=== PATIENT | female | born 1945 | race Caucasian/White ===

== ENCOUNTER 2025-04-02 10:10 | Outpatient (CLI) | payer MEDICARE, SELFPAY ==
--- NOTE | ~2025-04-02 | CT_ITS ---
CT OF left knee EXAMINATION: CT_LELTCWO_CT DATE: 04/02/2025 11:26 INDICATION: Preoperative planning, Conformis protocol TECHNIQUE: Computed tomography (CT) of the left knee was performed without intravenous contrast. Auto mated exposure control and iterative reconstruction technique were employed. The dose-length product was 1810.52 mGy-cm. COMPARISON: X-ray left knee 03/20/2025, images only FINDINGS: Atherosclerotic calcifications. Degenerative changes in the bilateral hips and pubic symphysis. Decre ased mineralization. Tricompartmental degenerative change in the left knee, severe in the medial comp artment. Chondrocalcinosis. ACL not well visualized, may be torn. No acute fracture or dislocation. N o lytic or blastic lesion. IMPRESSION: Osteopenia. 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 Reviewed, dictated and finalized at location K.
--- OUTSIDE RECORDS SUMMARY | 2025-04-02 10:20 | XMS_ITS | Encounter Summary ---
Author Organization [facility] Address [address] [facility] [place] [address] Phone Care Team Providers Care Manager Licensing Name Role Phone Sonya López MD Primary Care Provider Chance Miller MD Unavailable Gabo Long MD Primary Care Provider [phone] Ashwini Herrera DO Primary Care Provider Encounter Details Date Type Department Care Team (Late st Contact Info) Description 04/26/2023 [facility] [address] [place] [address] Chance Miller MD #[address] [id number] Preop testing (Primary Dx); Oropharyngeal dysphagia Social History Tobacco Use Types Packs/Day Years Used Date Smoking Tobacco: Never Smokeless Tobacco: Never Alcohol Use Standard Drinks/Week Comments Yes 0 (1 standard drink = 0.6 oz pur e alcohol) OCCASIONAL ON WEEKENDS PHQ-2 Answer Date Recorded Total Score - Questions 1-9 0 02/24 Education Answer Date Recorded What is the highest level of school you have completed or the highest degree you have received? Associate degree: occupational, technical, or vocational program 03/12/2023 Sexually Active Control Partners Comments Not Currently Male Comments No Sex and Gender Information Value Date Recorded Sex Assigned at Female 09/26/2023 10:23 AM ORDNANCE TECHNICIAN Legal Sex Female 11:44 PM CDT Gender Identity Female 09/26/2023 10:23 AM ORDNANCE TECHNICIAN Sexual Orientation Straight 09/26/2023 10 :23 AM ORDNANCE TECHNICIAN COVID-19 Exposure Response Date Recorded In the last 10 days, have yo u been in contact with someone who was confirmed or suspected to have Coronavirus/COVID-19? No / Unsure 04/23/2023 11:00 AM CDT documented as of this encounter Plan of Treatment Upcoming Encounters Date Type Department Care Team (Late st Contact Info) Description 12/07/2025 10:00 AM CDT Office Visit [facility] - Family Medicine - [place] [address] [place] [address] Ashwini Herrera, DO 2 [facility], [address] [id number] documented as of this encounter Results * SARS-COV-2 BY MOLECULAR (05/01/2023 10:19 AM CDT) SARSCOV2 NOT DETECTED (Referenc e Range for this test is Not Detected) [facility] ID NOW 05/01/2023 10:53 AM CDT [facility] Comment:This test was perfor med by a MOLECULAR, NON-PCR method Other NASOPHARYNGEAL STRUCTURE / Unknown Non-Phlebotomy Collection / Unknown 05/01/2023 10:19 AM CDT 05/01/2023 10:36 AM CDT Narrative [facility] - 05/01/2023 10:53 AM CDT This test has been authorized by the FDA under an Emergency Use Authorization (EUA) only. Negative results should be treated as presumptive and, if inconsistent with clinical signs and symptoms or necessary for patient management, the patient should be tested with an alternative molecular assay. Negative results do not preclude SARS-CoV-2 infection or any other respiratory pathogen. Additional information for Clinicians can be found at: https://www.fda.gov/media/887206/download Additional information for Patients can be found at: https://www.fda.gov/media/552083/download Chance Millre MD MICROBIOLOGY - GENERAL ORDERABLE S Final Result [facility] [address] [place] [address] documented in this encounter Visit Diagnoses Diagnosis Preop testing- Primary Preoperative examination, unspecified Oropharyngeal dysphagia Dysphagia, oropharyngeal phase documented in this encounter Additional Health Concerns Infection Onset Date Last Indicated Resolved Time COVID - 19 Confirmed 04/23/2023 04/23/2023 023 12:16 AM CDT Assessment Noted Time PHQ-9 Depression Total Score: 0 03/12/20 23 12:00 PM CDT documented as of this encounter Care Teams Manager Licensing Relationship Specialty Start Date End Date Sonya López MD PCP - General Family Medicine 02/26/18 07/30/23 Gabo Long MD #2 [facility] [address] [place] [address] PCP - General Family Medicine 12/10/23 01/23/24 Ashwini Herrera DO 2 [facility] [address] [facility] [address] [place] [address] PCP - General Family Medicine 01/24/24 Chance Miller MD [facility]2 [facility] [address] [place] [address] Consulting Physician Colon and Rectal Surgery 04/13/23 documented as of this encounter
--- OUTSIDE RECORDS SUMMARY | 2025-04-02 10:20 | XMS_ITS | Encounter Summary ---
Author Organization [facility] Address [address] [place] [address] Phone Care Team Providers Care Dray Driver Name Role Phone Sonya López MD Primary Care Provider [phone] Chance Miller MD Unavailable Gabo Long MD Primary Care Provider [phone] Ashwini Herrera DO Primary Care Provider [phone] Reason for Visit * Reason Comments Medication Refill Encounter Details Date Type Department Care Team (Late st Contact Info) Description 07/07/2020 Refill [facility] - Family Medicine [facility] [address] [place] [address] Sonya López [place] [address] [place] [id number] Medication Refill Social History Tobacco Use Types Packs/Day Years Used Date Smoking Tobacco: Never Smokeless Tobacco: Never Alcohol Use Standard Drinks/Week Comments Yes 0 (1 standard drink = 0.6 oz pur e alcohol) OCCASIONAL ON WEEKENDS PHQ-2 Answer Date Recorded Total Score - Questions 1-9 0 01/25 Sexually Active Control Partners Comments Not Currently Comments No Sex and Gender Information Value Date Recorded Sex Assigned at Female 09/26/2023 10:23 AM MOLDED GOODS INSPECTOR TRIMMER Legal Sex Female 11:44 PM CDT Gender Identity Female 09/26/2023 10:23 AM MOLDED GOODS INSPECTOR TRIMMER Sexual Orientation Straight 09/26/2023 10 :23 AM MOLDED GOODS INSPECTOR TRIMMER documented as of this encounter Plan of Treatment Upcoming Encounters Date Type Department Care Team (Late st Contact Info) Description 12/07/2025 10:00 AM CDT [facility] Visit [facility] Family [facility] [address] [place] [address] Ashwini Herrera DO 2 [facility] [address] [address] documented as of this encounter Visit Diagnoses Not on filedocumented in this encounter Additional Health Concerns Infection Onset Date Last Indicated Resolved Time COVID - 19 03/30/2023 03/30/2023 04/09/2023 12:1 6 AM CDT COVID - 19 Confirmed 03/30/2023 03/30/2023 023 12:16 AM CDT COVID - 19 Confirmed 04/23/2023 04/23/2023 023 12:16 AM CDT Assessment Noted Time PHQ-9 Depression Total Score: 0 02/10/20 20 7:31 AM CDT documented as of this encounter Care Teams Dray Driver Relationship Specialty Start Date End Date Sonya López MD PCP - General Family Medicine 02/26/18 07/30/23 Gabo Long MD #[address] [address] PCP - General Family Medicine 12/10/23 01/23/24 Ashwini Herrera DO 2 [facility] [address] [address] PCP - General Family Medicine 01/24/24 Chance Miller MD #[address] [address] Consulting Physician Colon and Rectal Surgery 04/13/23 documented as of this encounter
--- OUTSIDE RECORDS SUMMARY | 2025-04-02 10:22 | XMS_ITS | Encounter Summary ---
Author Organization [facility] Address [address] [facility] [place] [address] Phone Care Team Providers Care Applications Sales Consultant Name Role Phone Chance Miller MD Unavailable Gabo Long MD Primary Care Provider [phone] Ashwini Herrera DO Primary Care Provider [phone] Reason for Visit * Reason Comments Medication Refill Encounter Details Date Type Department Care Team (Late st Contact Info) Description 08/24/2023 Refill [facility] [address] [place] [address] Sonya López [place] [address] [place] [address] Medication Refill Social History Tobacco Use Types [...] Sex Assigned at Female 09/26/2023 10:23 AM FINANCE ASSISTANT Legal Sex Female 11:44 PM CDT Gender Identity Female 09/26/2023 10:23 AM FINANCE ASSISTANT Sexual Orientation Straight 09/26/2023 10 :23 AM FINANCE ASSISTANT documented as of this encounter Miscellaneous Notes * Telephone Encounter - Janki Luna RN - 08/24/2023 11:05 AM CST Name from pharmacy: glipiZIDE 5 MG Oral Tablet Will file in chart as: glipiZIDE (GLUCOTROL) 5 MG Tablet The original prescription was discontinued on 07/16/2023 by Sonya López MD for the following reason: Therapy completed. NCE ASSISTANT documented in this encounter Plan of Treatment Upcoming Encounters Date Type Department Care Team (Late st Contact Info) Description 12/07/2025 10:00 AM CDT Office Visit [facility] Family [facility] [address]2 [place] [address] Ashwini Herrera DO [address] [address] documented as of this encounter Visit Diagnoses Diagnosis Controlled type 2 diabetes mellitus without complication, without long-term current use of insulin documented in this encounter Additional Health Concerns Assessment Noted Time PHQ-9 Depression Total Score: 0 03/12/20 23 12:00 PM CDT documented as of this encounter Care Teams Applications Sales Consultant Relationship Specialty Start Date End Date Gabo Long MD #[address] [address] PCP - General Family Medicine 12/10/23 01/23/24 Ashwini Herrera DO [address] [address] PCP - General Family Medicine 01/24/24 Chance Miller MD #[address] [facility] [address] [address] Consulting Physician Colon and Rectal Surgery 04/13/23 documented as of this encounter
--- OUTSIDE RECORDS SUMMARY | 2025-04-02 10:22 | XMS_ITS | Encounter Summary ---
Author Organization [facility] Address [address] [facility] [place] [address] Phone Care Team Providers Care Slot Machine Key Person Name Role Phone Chance Miller MD Unavailable Gabo Long MD Primary Care Provider [phone] Ashwini Herrera DO Primary Care Provider [phone] Reason for Visit * Reason Comments Medication Refill Encounter Details Date Type Department Care Team (Late st Contact Info) Description 11/25/2023 Refill [facility] [address]2 [place] [address] Sonya López [place] [address] [place] [address] Medication Refill Social History Tobacco Use Types [...] Sex Assigned at Female 09/26/2023 10:23 AM SILVERWARE BUFFING MACHINE OPERATOR Legal Sex Female 11:44 PM CDT Gender Identity Female 09/26/2023 10:23 AM SILVERWARE BUFFING MACHINE OPERATOR Sexual Orientation Straight 09/26/2023 10 :23 AM SILVERWARE BUFFING MACHINE OPERATOR documented as of this encounter Miscellaneous Notes * Telephone Encounter - Janki Luna RN - 11/27/2023 8:57 AM CDT Sonya patient - has upcoming transfer of care with Dr Long in December. * Telephone Encounter - Janki Luna RN - 11/27/2023 8:57 AM CDT Medication(s) [facility] Standing Order for Pediatricand Adult Patients. Requested Prescriptions Pending Prescriptions Disp Refills atorvastatin (LIPITOR) 20 MG Tablet [Pharmacy Med Name: Atorvastatin Calcium 20 MG Oral Tablet] 90 Tablet 0 Sig: TAKE 1 TABLET BY MOUTH DAILY Hmg CoA Reductase Inhibitors Protocol Passed - 11/25/2023 3:37 AM Passed - Visit with relevant provider in past 12 months or upcoming 90 days Recent Visits Date Type Provider Dept 07/16/23 Office Visit Sonya López MD [facility] 04/12/23 Office Visit Alison Keane APRN, CNP [facility] 03/12/23 Office Visit Sonya López MD [facility] 12/11/22 Office Visit Sonya López MD [facility] Showing recent visits within past 365 days and meeting all other requirements Future Appointments Date Type Provider Dept 01/24/24 Appointment Gabo Long MD [facility] Showing future appointments within next 90 days and meeting all other requirements Passed - Lipid panel in past 12 months LDL Date Value Ref Range Status 12/11/2022 54 5 - 130 mg/dL Final HDL CHOLESTEROL Date Value Ref Range Status 12/11/2022 52.3 >40 mg/dL Final CHOLESTEROL Date Value Ref Range Status 12/11/2022 129 <=200 mg/dL Final TRIGLYCERIDES Date Value Ref Range Status 12/11/2022 113 <150 mg/dL Final VLDL Date Value Ref Range Status 12/11/2022 23 5 - 55 mg/dL Final CHOL/HDL RATIO Date Value Ref Range Status 12/11/2022 2.5 0.0 - 4.4 Final NON-HDL CHOLESTEROL Date Value Ref Range Status 12/11/2022 76.7 <130 mg/dL Final Passed - CMP in past 12 months SODIUM Date Value Ref Range Status 07/09/2023 142 136 - 145 mmol/L Final POTASSIUM Date Value Ref Range Status 07/09/2023 4.4 3.5 - 5.1 mmol/L Final CHLORIDE Date Value Ref Range Status 07/09/2023 107 98 - 107 mmol/L Final CO2, VENOUS Date Value Ref Range Status 07/09/2023 25 22 - 30 mmol/L Final ANION GAP Date Value Ref Range Status 07/09/2023 14.4 <18.0 mmol/L Final GLUCOSE Date Value Ref Range Status 07/09/2023 149 (H) 70 - 99 mg/dL Final BUN Date Value Ref Range Status 07/09/2023 18 10 - 20 mg/dL Final CREATININE, BLOOD Date Value Ref Range Status 07/09/2023 1.04 (H) 0.60 - 1.00 mg/dL Final BUN/CREATININE RATIO Date Value Ref Range Status 07/09/2023 17 12 - 20 ratio Final TOTAL PROTEIN Date Value Ref Range Status 07/09/2023 7.0 6.3 - 8.2 g/dL Final ALBUMIN Date Value Ref Range Status 07/09/2023 3.9 3.5 - 5.0 g/dL Final A/G RATIO Date Value Ref Range Status 07/09/2023 1.3 1.0 - 2.2 Final A/G RATIO, SERUM Date Value Ref Range Status 05/25/2023 1.0 Final CALCIUM Date Value Ref Range Status 07/09/2023 9.5 8.7 - 10.5 mg/dL Final T BILI Date Value Ref Range Status 07/09/2023 0.7 0.2 - 1.2 mg/dL Final SGOT (AST) Date Value Ref Range Status 07/09/2023 35 (H) 5 - 34 U/L Final SGPT (ALT) Date Value Ref Range Status 07/09/2023 32 0 - 55 U/L Final ALKALINE PHOSPHATASE Date Value Ref Range Status 07/09/2023 92 40 - 150 U/L Final GFR, EST. NONAFRICAN Date Value Ref Range Status 07/09/2023 52 (L) >=60 Final GFR, EST. Date Value Ref Range Status 07/09/2023 >60 >=60 Final GFR, ESTIMATED Date Value Ref Range Status 07/09/2023 56 (L) >=60 Final Comment: Creatinine Clearance is the preferred criteria for selecting drug dose adjustments in renally impaired patients. The GFR is provided as additional pertinent clinical information. GFR is reported in mL/min/1.73 sq m. Calculation based on the Chronic Kidney Disease Epidemiology Collaboration (CKD- EPI) equation refitwithout adjustment for race. IS THE PATIENT REQUIRED TO BE FASTING? Date Value Ref Range Status 07/09/2023 No Final documented in this encounter Plan of Treatment Upcoming Encounters Date Type Department Care Team (Late st Contact Info) Description 12/07/2025 10:00 AM CDT Office Visit [facility] Family [facility] #2 [place] [address] Ashwini Herrera DO 2 [facility] [address] [place] [address] documented as of this encounter Visit Diagnoses Diagnosis Dyslipidemia Other and unspecified hyperlipidemia documented in this encounter Additional Health Concerns Assessment Noted Time PHQ-9 Depression Total Score: 0 03/12/20 23 12:00 PM CDT documented as of this encounter Care Teams Slot Machine Key Person Relationship Specialty Start Date End Date Gabo Long MD #[address] [address] PCP - General Family Medicine 12/10/23 01/23/24 Ashwini Herrera DO 2 [facility] [address] [place] [address] PCP - General Family Medicine 01/24/24 Chance Miller MD #[address] [address] Consulting Physician Colon and Rectal Surgery 04/13/23 documented as of this encounter
--- OUTSIDE RECORDS SUMMARY | 2025-04-02 10:22 | XMS_ITS | Clinical Summary ---
Author Organization [facility] Medical Office Building [address] Address [address] [place] [address] Care Team Providers Care Flight Test Engineer Name Role Phone Ashwini Herrera DO Primary Care Provider Allergies Active Allergy Reactions Criticality Noted Date Comments Tetanus Antitoxin Swelling Medium 07/20/2015 Medications liraglutide (VICTOZA) 0.6 mg/0.1 mL (18 mg/3 mL) injectionIndica tions:type 2 diabetes mellitus Inject under the skin. Active metFORMIN (GLUMETZA) 500 mg 24 hr tablet Take 1 tablet (500 mg total) by mouth daily with breakfast Active aspirin 81 mg tablet Take 1 tablet (81 mg total) by mouth daily Active blood glucose diagnostic strip Test once daily. DX E11.9 9 Active pen needle, diabetic 32 gauge x 1/4 needle Test blood sugar once a day 7 Active omeprazole (PriLOSEC) 40 mg capsule Take 1 capsule (40 mg total) by mouth daily [address] (CYMBALTA) 20 mg capsule Take 1 capsule (20 mg total) by mouth daily 3 Active potassium &magnesium aspartate (MAGNESIUM, POTASSIUM ASPARTATE ORAL) Take by mouth Active losartan (COZAAR) 50 mg tablet Take 1 tablet (50 mg total) by mouth daily 90 tablet 3 5 Active levothyroxine (SYNTHROID) 75 mcg tablet Take 1 tablet (75 mcg total) by mouth early childhood aide classroom before breakfast 90 tablet 3 5 Active atorvastatin (LIPITOR) 20 mg tablet Take 1 tablet (20 mg total) by mouth daily 90 tablet 3 5 Active Xarelto 20 mg tablet TAKE 1 TABLET BY MOUTH ONCE DAILY 90 tablet 3 5 Active Active Problems Problem Noted Date Diagnosed Date Pacemaker 06/27/2024 Sick sinus syndrome 04/30/2024 Overview (05/07/2024): Manifested by slow and fast heart rates in atrial fibrillation. Now status post Biotronik Amvia Edge permanent dual-chamber pacemaker on 30 April 2024 (RL). Assessment & Plan (05/07/2024 3:14 PM CDT): No significant incisional pain, wound drainage or fever. Usual pacemaker precautions given. Patient may drive a car now. She will see Dr. Mcginnis on 23 June 2024 and she will ask him about restarting Toprol XL. She may restart Xarelto 20 mg p.o. tonight. She knows to call me if there is any large hematoma developing on Xarelto. Device remote check today showed no atrial fibrillation with 56% RA pacing 46% RV pacing. All numbers good. Sick sinus syndrome 04/02/2024 Bradycardia 12/17/2023 Paroxysmal atrial fibrillation 05/29/2022 Abnormal stress test 03/03/2022 Overview (03/03/2022): Added automatically from request for surgery [id number] Coronary artery disease invo lving [place] coronary artery of [place] heart without angina pectoris 01/20/2022 Persistent atrial fibrillation 01/20/2022 On continuous oral anticoagulation 01/20/2022 Morbid obesity with BMI of 40.0-44.9, adult 01/25 Assessment & Plan (06/28/2022 10:16 AM CDT): Encourage a weight loss program such as WW (Weight Watchers) incorporating dietary changes and aerobic / weight-bearing exercise at least 4-5 times per week, for at least 30-45 minute sessions. Assessment & Plan (02/11/2019 11:29 AM CDT): Encourage a weight loss program such as Weight Watchers incorporating dietary changes and aerobic / weight-bearing exercise at least 3-4 times per week, as tolerated. Lichen sclerosus et atrophicus 02/20/2013 Overview (11/29/2016): Lichen sclerosus Assessment & Plan (05/16/2023 4:27 PM CDT): Recommend coconut oil, in solid form, in between flares to help protect skin. Can apply topically daily and as needed. Continue steroid ointment for flares - refill sent to pharmacy at this time. Hypercholesterolemia 06/04/2012 Overview (11/29/2016): Hypercholesterolemia Gastroesophageal reflux disease 06/04/2012 Overview (11/30/2016): Gastro - esophageal reflux Essential hypertension 06/04/2012 Overview (12/01/2016): Hypertension Diabetes mellitus 06/04/2012 Overview (12/01/2016): Diabetes mellitus Hypothyroidism 06/04/2012 Overview (12/01/2016): Hypothyroidism Dyslipidemia 06/04/2012 Overview (12/01/2016): Dyslipidemia Atrial flutter Encounters Date Type Department Care Team Description 01/28/2025 11:45 AM CDT Ancillary Procedure [facility] [address] [place] [id number] Sick sinus syndrome (HCC); Paroxysmal atrial fibrillation (HCC); Pacemaker 01/09/2025 10:30 AM CDT Ancillary Procedure [facility] at [address] [id number] Sick sinus syndrome (HCC); Paroxysmal atrial fibrillation (HCC); Pacemaker 01/09/2025 10:30 AM CDT Office Visit [facility] at [address] [phone] Portia Mcginnis MD Paroxysmal atrial fibrillation (HCC) (Primary Dx); Pacemaker; On continuous oral anticoagulation; Essential hypertension from Last 3 Months Surgical History Surgery Date Site/Laterality Comments OTHER SURGICAL HISTORY 1964 : OTHER SURGICAL HISTORY 1969 : OTHER SURGICAL HISTORY 1983 S/P TVH and anterior repair OTHER SURGICAL HISTORY Left arthroscopic, knee OTHER SURGICAL HISTORY Hemorrhoids: IR Medical History Medical History Date Comments Hx Other Medical 1964 ; Outc ome: 8 lb(s) 14 oz Female Hx Other Medical 1969 ; Outc ome: 7 lb(s) 10 oz Male Disorder of thyroid Thyroid dise ase Hyperlipidemia Hyperlipidemia Hypertension Hypertension Diabetes mellitus (HCC) Diabetes mellitus Hx Other Medical 2005 lichen sclerosu s Hx Other Medical Hemorrhoids; Co mments: MTB 06/05/2014 - Family History Medical History Relation Name Comments Coronary artery disease Father Marty nary artery disease; Diabetes Father Diabetes mellit us; Coronary artery disease Mother Marty nary artery disease; Diabetes Mother Diabetes mellit us; Heart disease Mother Osteoporosis Mother Osteoporosis; Thyroid cancer Mother Thyroid disease Mother Relation Name Status Comments Father Mother Social History Tobacco Use Types Packs/Day Years Used Date Smoking Tobacco: Never Smokeless Tobacco: Never Tobacco Cessation:Counseling Given: Not Answered Alcohol Use Standard Drinks/Week Comments Yes 0 (1 standard drink = 0.6 oz pur e alcohol) AUDIT-C Answer Date Recorded Q1: How often do you have a drink containing alc ohol? 2-4 times a month 04/30/2024 Q2: How many drinks containi ng alcohol do you have on a typical day when you are drinking? 1 or 2 04/30/2024 Q3: How often do you have si x or more drinks on one occasion? Never 04/30/2024 PHQ-2 Answer Date Recorded PHQ-2 Total Score (If total score is 3 or more points, staff should administer the PHQ-9) 0 05/16/2023 Personal Safety Answer Date Recorded Have you ever been in or are you currently in a harmful physical or emotional relationship or is someone making you feel afraid or unsafe? Denies 04/30/2024 Comments No Sex and Gender Information Value Date Recorded Sex Assigned at Not on file Legal Sex Female 1:54 AM CANDY SEPARATOR HARD Gender Identity Female 02/11/2021 9:48 AM CDT Sexual Orientation Not on file Obstetrics History Para Term AB IAB SAB Ectopic Multiple Livin g Live Births 2 2 Date Outcome GA Total Labor Labor/2nd/3rd Weight Sex Type Anes PTL Marichuy A1 A5 Name Clin 07/1965 F Vag-Sp ont 05/1970 M Vag-Sp ont Last Filed Vital Signs Vital Sign Reading Time Taken Comments Blood Pressure 94/67 01/09/2025 10:24 AM CDT Pulse 93 01/09/2025 10:24 AM CDT Temperature 36 C (96.8 F) 05/01/2024 7:56 AM CDT Respiratory Rate 18 05/01/2024 7:56 AM CDT Oxygen Saturation 94% 05/01/2024 7:56 AM CDT Inhaled Oxygen Concentration - - Weight 95.7 kg (211 lb) 01/09/2025 10:24 AM CDT Height 157.5 cm (5' 2) 01/09/2025 10:24 AM CDT Body Mass Index 38.59 01/09/2025 10:24 AM CDT Plan of Treatment Health Maintenance Due Date Last Done Comments Albumin Creatinine Ratio, Urine 1945 Hemoglobin A1C 1945 Hepatitis C Screening 1945 Dilated Eye Exam 1946 Foot Exam 1945 DTaP/Tdap/Td Vaccine (1 - Tdap) 1957 Hepatitis B Screening 1964 Well Visit 65+ 2011 Osteoporosis Screening-Bone Density Scan 03/18/2021 03/18/2019, 03/18/2019, 03/18/2019 Depression Screening 05/16/2024 05/16/2023, 02/18/20 21 Influenza Vaccine (#1) 2025 , 07/25/2022, 05/17/2020, Additional history exists eGFR 04/29/2025 04/29/2024, 01/26, 04/25/2022, Additional history exists Fall Risk Assessment 05/01/2025 05/01/2024 Lipid Panel 01/22/2026 01/22/2025, 12/27, 12/06/2021, Additional history exists Zoster Vaccine Completed 05/26/2019, 12/27, 05/31/2015 Pneumococcal vaccine 65+ Completed 020, 02/25/2018, 11/25/2005 Breast Cancer Screening-Mammogram Discontinued 01/15/2025, 01/15/2025, 12/10/2023, Additional history exists Medical Devices Implanted Type Area Ways Operator Device Identifier Shelf Expiration Date Model / Serial / Lot Biotronik Inc Endocardial Pacing Lead Promri Solia Jt [id number] - [id number] - [id number] Implanted:Qty: 1 on 04/30/2024 by Rashi Shanks MD at [facility] Lead Biotronik Inc 11/24/2025 [id number] / [id number] / Biotronik Inc Endocardial Pacing Lead Promri Solia T [id number] - [id number] - [id number] Implanted:Qty: 1 on 04/30/2024 by Rashi Shanks MD at [facility] Lead Biotronik Inc 11/24/2024 [id number] / [id number] / Medtronic Inc Tyrx Absorbable Antibacterial Envelope-Large 3.3x2.9in [id number] - [id number] Implanted:Qty: 1 on 04/30/2024 by Rashi Shanks MD at [facility] Mesh Medtronic Inc 01/24/2025 CMRM [id number] / / [id number] Biotronik Inc Pacemaker Implantable Amvia Edge Dual Chamb Rate-Responsive [id number] - [id number] - [id number] Implanted:Qty: 1 on 04/30/2024 by Rashi Shanks MD at [facility] Pacemaker Biotronik Inc 09/26/2025 [id number] / [id number] / Procedures Procedure Name Priority Date/Time Associated Diagnosis Comments DEVICE CHECK - REMOTE Routine 01/27/2025 12:14 PM CDT Sick sinus syndrome (HCC) Paroxysmal atrial fibrillation (HCC) Pacemaker DEVICE CHECK - IN OFFICE Routine 01/09/2025 10:14 AM CDT Sick sinus syndrome (HCC) Paroxysmal atrial fibrillation (HCC) Pacemaker EGFR Routine 04/29/2024 9:32 AM CDT Sick sinus syndrome (HCC) SCREENING MAMMOGRAM BILATERAL W CHRISTIANO Schedule Routine, Read Routine (OP Routine) 12/10/2023 4:23 PM CDT DEXA AXIAL SKELETON BONE DENSITY 1 OR MORE SITES Schedule Routine, Read Routine (OP Routine) 03/18/2019 Asymptomatic menopausal state Screening for osteoporosis from Last 3 Months or Most Recently Relevant to Health Maintenance Results * DEVICE CHECK - REMOTE (01/27/2025 12:14 PM CDT) Anatomical Region Laterality Modality Other Narrative 01/29/2025 1:27 PM CDT Images from the original result were not included. 01/28/2025 Biotronik quarterly remote device check The complete report in its entirety is attached to this Result Text in Bioinformaticist Periodic IEGM Detection Jan 28, 2025, 1:05:34 AM Dual Chamber PPM implanted April 2024 Battery: OK/95% Ap: 58% RVp: 3% AT/AF [place]: 0.0% PVC [place]: 0% Last in-office check: December 2024 Next in-office appointment: June 2025 No episodes recorded this monitoring period Reviewed By Tiffany Coulter RN BSN at 12:07 PM Review and Recommendations below (please forward an in-basket message to your MA if check requires attention) us Portia Mcginnis MD [facility] PROCED URES Final Result * DEVICE CHECK - IN OFFICE (01/09/2025 10:14 AM CDT) Anatomical Region Laterality Modality Other Narrative 01/09/2025 2:06 PM CDT Images from the original result were not included. 01/09/2025 Biotronik in-office device check The complete report is attached to this Result Text in Bioinformaticist us Portia Mcginnis MD CV CARDIAC SERVICES PROCED URES Final Result * eGFR (04/29/2024 9:32 AM CDT) eGFR 75 >=60 mL/min/1. 73 m2 Comment: Interpretive Data Reference Interval Normal >/= 90 mL/min/1.73m2 Mildly decreased* 60 - 89 mL/min/1.73m2 Mildly to moderately decreased 45 - 59 mL/min/1.73m2 Moderately to severely decreased 30 - 44 mL/min/1.73m2 Severely decreased 15 - 29 mL/min/1.73m2 Kidney Failure < 15 mL/min/1.73m2 *Relative to young adult level Estimated glomerular filtration rate is determined by the 2020 CKD-EPI equation recommended by the National Kidney Foundation (A Unifying Approach to GFR Estimation: Recommendations of the NKF-ASK Task Force on Reassessing the Inclusion of Race in Diagnosing Kidney Disease, JASN 2020). The CKD-EPI equation should not be used for patients with unstable renal function and has not been validated in children and those over 70. Current interpretive data was last reviewed 2021. Blood 04/29/2024 9:32 AM CDT 04/29/2024 9:45 AM CDT us Rashi Shanks MD LAB BLOOD ORDERABLES Final Re sult [facility] Department [place] [address] * Dexa Axial Skeleton Bone Density 1 or 2 Site (03/18/2019) Anatomical Region Laterality Modality Body N/A Radiographic Debra ging us Stacy Zapata COMPENSATION DIRECTOR IMG DXA PROCEDURES Final Result from Last 3 Months or Most Recently Relevant to Health Maintenance Insurance [facility] MEDICARE ADVANTAGE UHC MEDICARE ADVANTAGE Advance Directives For more information, please contact: [phone] * Full Code (Latest Code Status on File) Date Activated Date Inactivated Comments 03/07/2022 9:34 AM 03/07/2022 11:14 PM Care Teams Flight Test Engineer Relationship Specialty Start Date End Date Ashwini Herrera DO PCP - General Family Medicine 04/17/24
--- OUTSIDE RECORDS SUMMARY | 2025-04-02 10:22 | XMS_ITS | Encounter Summary ---
Author Organization [facility] Address [address] [facility] [place] [address] Phone Care Team Providers Care Etl Bi Developer Name Role Phone Chance Miller MD Unavailable Ashwini Herrera DO Primary Care Provider [phone] Reason for Visit * Reason Comments Medication Refill Encounter Details Date Type Department Care Team (Late st Contact Info) Description 06/19/2024 [facility]ill [facility] [address] [place] [address] Alison Keane APRN, WARDROBE COORDINATOR [address] [address] Medication Refill Social History Tobacco Use Types [...] Sex Assigned at Female 09/26/2023 10:23 AM ENVIRONMENTAL PROJECTS ADVISOR Legal Sex Female 11:44 PM CDT Gender Identity Female 09/26/2023 10:23 AM ENVIRONMENTAL PROJECTS ADVISOR Sexual Orientation Straight 09/26/2023 10 :23 AM ENVIRONMENTAL PROJECTS ADVISOR documented as of this encounter Miscellaneous Notes * Telephone Encounter - Janki Luna RN - 06/20/2024 3:31 PM CDT Images from the original note were not included. Atorvastatin Calcium Dispensed Days Supply Quantity Provider Pharmacy ATORVASTATIN CALCIUM 20 MG TABS 05/17/2024 90 90 Tablet Alison Keane APRN, SALOM[facility]N [facility] Repeatit ATORVASTATIN CALCIUM 20 MG TABS 02/22/2024 90 90 Tablet Alison Keane APRN, SALOM[place]N [facility] - ... documented in this encounter Plan of Treatment Upcoming Encounters Date Type Department Care Team (Late st Contact Info) Description 12/07/2025 10:00 AM CDT Office Visit [facility] - Family Medicine - [place] [address] [place] [address] Ashwini Herrera DO 2 [facility] [address] [place] [address] documented as of this encounter Visit Diagnoses Diagnosis Dyslipidemia Other and unspecified hyperlipidemia documented in this encounter Additional Health Concerns Assessment Noted Time PHQ-9 Depression Total Score: 0 03/12/20 23 12:00 PM CDT documented as of this encounter Care Teams Etl Bi Developer Relationship Specialty Start Date End Date Ashwini Herrera DO 2 [facility] [address] [facility] [address] [place] [address] PCP - General Family Medicine 01/24/24 Chance Miller MD #2 [facility] [address] [place] [address] Consulting Physician Colon and Rectal Surgery 04/13/23 documented as of this encounter
--- OUTSIDE RECORDS SUMMARY | 2025-04-02 10:22 | XMS_ITS | Encounter Summary ---
Author Organization [facility] Address [address] [facility] [place] [address] Phone Care Team Providers Care Cyber Defense Incident Responder Name Role Phone Sonya López MD Primary Care Provider Chance Miller MD Unavailable Gabo Long MD Primary Care Provider [phone] Ashwini Herrera DO Primary Care Provider [phone] Reason for Visit * Reason Comments Medication Refill Encounter Details Date Type Department Care Team (Late st Contact Info) Description 02/12/2023 Refill [facility] - Family Medicine [facility] [address] [place] [address] Sonya López [place] [address] [place] [address] Medication Refill Social History Tobacco Use Types Packs/Day Years Used Date Smoking Tobacco: Never Smokeless Tobacco: Never Alcohol Use Standard Drinks/Week Comments Yes 0 (1 standard drink = 0.6 oz pur e alcohol) OCCASIONAL ON WEEKENDS PHQ-2 Answer Date Recorded Total Score - Questions 1-9 0 11/25 Sexually Active Control Partners Comments Not Currently Male Comments No Sex and Gender Information Value Date Recorded Sex Assigned at Female 09/26/2023 10:23 AM CARE INFORMATION ASSOCIATE Legal Sex Female 11:44 PM CDT Gender Identity Female 09/26/2023 10:23 AM CARE INFORMATION ASSOCIATE Sexual Orientation Straight 09/26/2023 10 :23 AM CARE INFORMATION ASSOCIATE documented as of this encounter Miscellaneous Notes * Telephone Encounter - Janki Luna RN - 02/13/2023 7:14 AM CDT Medication failed the protocol, provider to review and approve the medication order if appropriate. Requested Prescriptions Pending Prescriptions Disp Refills DULoxetine (CYMBALTA) [address] Particles [Pharmacy Med Name: DULoxetine HCl 20 MG Oral Capsule Delayed Release Particles] 100 Capsule 2 Sig: TAKE 1 CAPSULE BY MOUTH AT NIGHT SNRI (6 Month Refill Only) Protocol Failed - 02/12/2023 11:23 AM Failed - Has an encounter in the past 6 months with a depression or anxiety visit diagnosis Failed - Patient has established therapy with Serotonin-Norepinephrine Reuptake Inhibitors for at least 6 months Passed - Visit with relevant provider in past 6 months or upcoming 90 days Recent Visits Date Type Provider Dept 12/11/22 Office Visit Sonya López MD [facility] Showing recent visits within past 182 days and meeting all other requirements Future Appointments Date Type Provider Dept 03/12/23 Appointment Sonya López MD [facility] Showing future appointments within next 90 days and meeting all other requirements documented in this encounter Plan of Treatment Upcoming Encounters Date Type Department Care Team (Late st Contact Info) Description 12/07/2025 10:00 AM CDT Office Visit [facility] - [facility] - [place] [address] [place] [address] Ashwini Herrera, DO 2 [facility]. [address] [place] [address] documented as of this encounter Visit Diagnoses [...] documented as of this encounter Care Teams Cyber Defense Incident Responder Relationship Specialty Start Date End Date Sonya López MD PCP - General Family Medicine 02/26/18 07/30/23 Gabo Long MD #2 [facility] [address] [place] [address] PCP - General Family Medicine 12/10/23 01/23/24 Ashwini Herrera DO 2 [facility] [address] [place] [address] PCP - General Family Medicine 01/24/24 Chance Miller MD #2 [facility] [address] [place] [address] Consulting Physician Colon and Rectal Surgery 04/13/23 documented as of this encounter
--- OUTSIDE RECORDS SUMMARY | 2025-04-02 10:22 | XMS_ITS | Encounter Summary ---
Author Organization [facility] Address [address] [facility] [place] [address] Phone Care Team Providers Care Husbandry Person Name Role Phone Chance Miller MD Unavailable Gabo Long MD Primary Care Provider [phone] Ashwini Herrera DO Primary Care Provider [phone] Reason for Visit * Reason Comments Medication Refill Encounter Details Date Type Department Care Team (Late st Contact Info) Description 12/10/2023 Refill [facility] [address] [place] [address] Sonya López [place] [address] [place] [address] Medication Refill Social History Tobacco Use Types [...] Sex Assigned at Female 09/26/2023 10:23 AM GOLF TEACHER Legal Sex Female 11:44 PM CDT Gender Identity Female 09/26/2023 10:23 AM GOLF TEACHER Sexual Orientation Straight 09/26/2023 10 :23 AM GOLF TEACHER documented as of this encounter Miscellaneous Notes * Telephone Encounter - Janki Luna RN - 12/11/2023 10:43 AM CDT Has NOT seen Dr Long - [facility] 01/24/24- Sonya patient * Telephone Encounter - Janki Luna RN - 12/11/2023 10:42 AM CDT Medication(s) [facility] Med[facility] Refill Standing Order for Pediatricand Adult Patients. Requested Prescriptions Pending Prescriptions Disp Refills metFORMIN (GLUCOPHAGE) 500 MG Tablet [Pharmacy Med Name: metFORMIN HCl 500 MG Oral Tablet] 200 Tablet 0 Sig: TAKE 1 TABLET BY MOUTH TWICE DAILY WITH MEALS Biguanides Protocol Passed - 12/10/2023 9:11 PM Passed - Visit with relevant provider in past 6 months or upcoming 90 days Recent Visits Date Type Provider Dept 07/16/23 Office Visit Sonya López MD [facility] Showing recent visits within past 182 days and meeting all other requirements Future Appointments Date Type Provider Dept 01/24/24 Appointment Gabo Long MD [facility] Showing future appointments within next 90 days and meeting all other requirements Passed - HgA1C on record in past 6 months HGB-A1C Date Value Ref Range Status 07/09/2023 5.4 4.0 - 6.0 % Final Passed - GFR on record in past 6 months GFR, EST. NONAFRICAN Date Value Ref Range Status 07/09/2023 52 (L) >=60 Final documented in this encounter Plan of Treatment Upcoming Encounters Date Type Department Care Team (Late st Contact Info) Description 12/07/2025 10:00 AM CDT Office Visit [facility] - Family Medicine - [place] [address] [place] [phone] Ashwini Herrera DO 2 [facility] [address] [place] [address] documented as of this encounter Visit Diagnoses Not on filedocumented in this encounter Additional Health Concerns Assessment Noted Time PHQ-9 Depression Total Score: 0 03/12/20 12:00 PM CDT documented as of this encounter Care Teams Husbandry Person Relationship Specialty Start Date End Date Gabo Long MD #[address] [address] PCP - General Family Medicine 12/10/23 01/23/24 Ashwini Herrera DO [address] [address] PCP - General Family Medicine 01/24/24 Chance Miller MD #[address] [address] Consulting Physician Colon and Rectal Surgery 04/13/23 documented as of this encounter
--- OUTSIDE RECORDS SUMMARY | 2025-04-02 10:22 | XMS_ITS | Encounter Summary ---
Author Organization [facility] Address [address] [facility] [place] [address] Phone Care Team Providers Care Gravel Machine Operator Name Role Phone Chance Miller MD Unavailable Gabo Long MD Primary Care Provider [phone] Ashwini Herrera DO Primary Care Provider [phone] Reason for Visit * Reason Comments Medication Refill Encounter Details Date Type Department Care Team (Late st Contact Info) Description 01/15/2024 Refill [facility] [address] [place] [address] Candelario Montelongo MD #[address] [address] Medication Refill Social History Tobacco Use Types [...] Sex Assigned at Female 09/26/2023 10:23 AM TYPER Legal Sex Female 11:44 PM CDT Gender Identity Female 09/26/2023 10:23 AM TYPER Sexual Orientation Straight 09/26/2023 10 :23 AM TYPER documented as of this encounter Miscellaneous Notes * Telephone Encounter - Janki Luna RN - 01/16/2024 8:27 AM CDT Pt did NOT transfer to Dr Long. Has NOT seen Dr Long. Has upcoming CHASITY with Javier Medication failed the protocol, provider to review and approve the medication order if appropriate. Requested Prescriptions Pending Prescriptions Disp Refills liraglutide (Victoza) 18 MG/3ML Solution Pen-injector [Pharmacy Med Name: VICTOZA 18MG 3ML INJ] 27 mL 1 Sig: INJECT SUBCUTANEOUSLY 1.8 MG DAILY GLP-1 Agonists Protocol Failed - 01/15/2024 9:42 PM Failed - Lipid panel result on file in past 12 months LDL Date Value [...] Range Status 12/11/2022 76.7 <130 mg/dL Final Failed - HgA1C result on record in past 6 months HGB-A1C Date Value Ref Range Status 07/09/2023 5.4 4.0 - 6.0 % Final Failed - GFR on record in past 6 months GFR, EST. NONAFRICAN Date Value Ref Range Status 07/09/2023 52 (L) >=60 Final Passed - Visit with relevant provider in past 6 months or upcoming 90 days Recent Visits No visits were found meeting these conditions. Showing recent visits within past 182 days and meeting all other requirements Future Appointments Date Type Provider Dept 01/24/24 Appointment Ashwini Herrera DO [facility] [place] Showing future appointments within next 90 days and meeting all other requirements documented in this encounter Plan of Treatment Upcoming Encounters Date Type Department Care Team (Late st Contact Info) Description 12/07/2025 10:00 AM CDT Office Visit [facility] - Family [facility] [address] [place] [address] Ashwini Herrera DO [address] [facility] [place] [address] documented as of this encounter Visit Diagnoses Not on filedocumented in this encounter Additional Health Concerns Assessment Noted Time PHQ-9 Depression Total Score: 0 03/12/20 23 12:00 PM CDT documented as of this encounter Care Teams Gravel Machine Operator Relationship Specialty Start Date End Date Gabo Long MD #[address] [address] PCP - General Family Medicine 12/10/23 01/23/24 Ashwini Herrera DO [address] [facility] [address] [address] [address] PCP - General Family Medicine 01/24/24 Chance Miller MD #[address] [address] Consulting Physician Colon and Rectal Surgery 04/13/23 documented as of this encounter
--- OUTSIDE RECORDS SUMMARY | 2025-04-02 10:22 | XMS_ITS | Clinical Summary ---
Author Organization [facility] Address [address] [place] [address] Care Team Providers Care Print Machine Operator Name Role Phone Sonya López MD Primary Care Provider [phone] Social History Tobacco Use Types Packs/Day Years Used Date Smoking Tobacco: Never Assessed Comments Unknown Sex and Gender Information Value Date Recorded Sex Assigned at Not on file Legal Sex Female 4:48 PM CDT Gender Identity Not on file Sexual Orientation Not on file Plan of Treatment Health Maintenance Due Date Last Done Comments Hepatitis C 1963 DTaP, Tdap and Td Vaccines ( 1 - Tdap) 1964 Annual Medicare Wellness Visit 2011 Dexa Scan (General) 2011 RSV Immunization or 60+ Years (1 - 1-dose 75+ series) 2021 COVID-19 Vaccine (3 - 2023-2 5 season) 2024 11/04/2020, 10/13/2020 Zoster Vaccines Completed 05/26/2019, 01/23/2019, 05/31/2015 Pneumococcal Vaccine: 50+ Years Completed 02/10/2020, 02/25/2018, 11/25/2005 Meningococcal B Vaccine Aged Out No l onger eligible based on patient's age to complete this topic Meningococcal Vaccine Aged Out No shirley alejandro eligible based on patient's age to complete this topic RSV Immunizations Under 20 Months Aged Out No longer eligible b ased on patient's age to complete this topic Insurance [facility] Care Teams Print Machine Operator Relationship Specialty Start Date End Date Sonya López MD [address] [place] [address] PCP - General FAMILY PRACTICE 06/05/23
--- OUTSIDE RECORDS SUMMARY | 2025-04-02 10:22 | XMS_ITS | Encounter Summary ---
Author Organization [facility] Address [address] [facility] [place] [address] Phone Care Team Providers Care Natural History Collections Curator Name Role Phone Chance Miller MD Unavailable Ashwini Herrera DO Primary Care Provider [phone] Reason for Visit * Reason Comments Medication Refill Encounter Details Date Type Department Care Team (Late st Contact Info) Description 02/05/2024 Refill [facility] #2 [place] [address] Alison Keane APRN, CARPENTRY SPECIALIST #[address] [address] Medication Refill Social History Tobacco [...] Sex Assigned at Female 09/26/2023 10:23 AM SERVICE DESK MANAGER Legal Sex Female 11:44 PM CDT Gender Identity Female 09/26/2023 10:23 AM SERVICE DESK MANAGER Sexual Orientation Straight 09/26/2023 10 :23 AM SERVICE DESK MANAGER documented as of this encounter Miscellaneous Notes * Telephone Encounter - Janki Luna RN - 02/06/2024 8:39 AM CDT Medication(s) refilled and signed per [facility] Chronic Medication Refill Standing Order for Pediatricand Adult Patients. Requested Prescriptions Pending Prescriptions Disp Refills atorvastatin (LIPITOR) 20 MG Tablet [Pharmacy Med Name: Atorvastatin Calcium 20 MG Oral Tablet] 100Tablet 1 Sig: TAKE 1 TABLET BY MOUTH ONCE DAILY Hmg CoA Reductase Inhibitors Protocol Passed - 02/05/2024 9:54 PM Passed - Visit with relevant provider in past 12 months or upcoming 90 days Recent Visits Date Type Provider Dept 01/24/24 Office Visit Ashwini Herrera DO [facility] [place] 07/16/23 Office Visit Sonya López MD [facility] [place] 04/12/23 Office Visit Alison Keane APRN, CARPENTRY SPECIALIST [facility] 03/12/23 Office Visit [facility] Showing recent visits within past 365 days and meeting all other requirements Future Appointments No visits were found meeting these conditions. Showing future appointments within next 90 days and meeting all other requirements Passed - Lipid panel in past 12 months LDL Date Value Ref Range Status 01/24/2024 53 <130 mg/dL Final HDL CHOLESTEROL Date Value Ref Range Status 01/24/2024 49 >40 mg/dL Final CHOLESTEROL Date Value Ref Range Status 01/24/2024 125 <200 mg/dL Final TRIGLYCERIDES Date Value Ref Range Status 01/24/2024 117 <150 mg/dL Final VLDL Date Value Ref Range Status 01/24/2024 23 10 - 50 mg/dL Final CHOL/HDL RATIO Date Value Ref Range Status 01/24/2024 2.6 0.0 - 4.4 Final NON-HDL CHOLESTEROL Date Value Ref Range Status 01/24/2024 76 <130 mg/dL Final Passed - CMP in [...] Office Visit [facility] [address] [place] [address] Ashwini Herrera DO [address] [facility] [address] [place] [address] documented as of this encounter Visit Diagnoses Diagnosis Dyslipidemia Other and unspecified hyperlipidemia documented in this encounter Additional Health Concerns Assessment Noted Time PHQ-9 Depression Total Score: 0 03/12/20 23 12:00 PM CDT documented as of this encounter Care Teams Natural History Collections Curator Relationship Specialty Start Date End Date Ashwini Herrera DO [address] [facility] [address] [place] [address] PCP - General Family Medicine 01/24/24 Chance Miller MD #[address] [address] Consulting Physician Colon and Rectal Surgery 04/13/23 documented as of this encounter
--- OUTSIDE RECORDS SUMMARY | 2025-04-02 10:22 | XMS_ITS | Continuity of Care Document ---
Author Organization [facility]. If a dditional information is needed, contact Health Information Management at [phone] Address [address] [place] [address] Phone Care Team Providers Care Business Systems Developer Name Role Phone Unavailable Unavailable Unavailable Unavailable Unavailable Unavailable Unavailable Unavailable Unavailable Unavailable Unavailable Unavailable Problems Injury of ankle Onset:04-Nov-2022 Jose Chavis MD Allergies and Adverse Reactions No Known Allergies(Allergy) Onset: 04-Nov-2022 Social History Smoking Status Tobacco smoking consumption unknown Recorded:
--- OUTSIDE RECORDS SUMMARY | 2025-04-02 10:23 | XMS_ITS | Encounter Summary ---
Author Organization [facility] Address [address] [facility] [place] [address] Phone Care Team Providers Care Intellectual Property Lawyer Name Role Phone Chance Miller MD Unavailable Ashwini Herrera DO Primary Care Provider [phone] Reason for Visit * Reason Comments Medication Refill Encounter Details Date Type Department Care Team (Late st Contact Info) Description 02/12/2024 Refill [facility] [address]2 [place] [address] Neftali Rueda APRN, TILE FINISHER [address] [id number] Medication Refill Social History Tobacco Use Types [...] Sex Assigned at Female 09/26/2023 10:23 AM FLEXOGRAPHIC PRESS SET UP OPERATOR Legal Sex Female 11:44 PM CDT Gender Identity Female 09/26/2023 10:23 AM FLEXOGRAPHIC PRESS SET UP OPERATOR Sexual Orientation Straight 09/26/2023 10 :23 AM FLEXOGRAPHIC PRESS SET UP OPERATOR documented as of this encounter Miscellaneous Notes * Telephone Encounter - Janki Luna RN - 02/12/2024 10:08 AM CDT Medication failed the protocol, provider to review and approve the medication order if appropriate. Requested Prescriptions Pending Prescriptions Disp Refills metFORMIN (GLUCOPHAGE) 500 MG Tablet [Pharmacy Med Name: metFORMIN HCl 500 MG Oral Tablet] 200 Tablet 2 Sig: TAKE 1 TABLET BY MOUTH TWICE DAILY WITH MEALS Biguanides Protocol Failed - 02/12/2024 3:52 AM Failed - GFR on record in past 6 months GFR, EST. NONAFRICAN Date Value Ref Range Status 07/09/2023 52 (L) >=60 Final Passed - Visit with relevant provider in past 6 months or upcoming 90 days Recent Visits Date Type Provider Dept 01/24/24 Office Visit Ashwini Herrera DO [facility] Showing recent visits within past 182 days and meeting all other requirements Future Appointments No visits were found meeting these conditions. Showing future appointments within next 90 days and meeting all other requirements Passed - HgA1C on record in past 6 months HGB-A1C Date Value Ref Range Status 01/24/2024 6.4 (A) 4 - 6 % Final documented in this encounter Plan of Treatment Upcoming Encounters Date Type Department Care Team (Late st Contact Info) Description 12/07/2025 10:00 AM CDT Office Visit [facility] - [facility] [address] [place] [address] Ashwini Herrera DO [address] [address] documented as of this encounter Visit Diagnoses Not on filedocumented in this encounter Additional Health Concerns Assessment Noted Time PHQ-9 Depression Total Score: 0 03/12/20 23 12:00 PM CDT documented as of this encounter Care Teams Intellectual Property Lawyer Relationship Specialty Start Date End Date Ashwini Herrera DO [address] [facility] [address] [place] [address] PCP - General Family Medicine 01/24/24 Chance Miller MD #2 [facility] [address] [place] [address] Consulting Physician Colon and Rectal Surgery 04/13/23 documented as of this encounter
--- OUTSIDE RECORDS SUMMARY | 2025-04-02 10:23 | XMS_ITS | Clinical Summary ---
Author Organization [facility] Address [address] [address] Phone Care Team Providers Care Net Manager Name Role Phone Chance Miller MD Unavailable Ashwini Herrera DO Primary Care Provider [phone] Allergies Active Allergy Reactions Criticality Noted Date Comments Pertussis Vaccines Unknown 02/12/2019 Tetanus Antitoxin Swelling 07/19/2015 Medications MICROLET LANCETS Misc USE EVERY DAY 100 Each 5 7 Active Insulin Pen Needle (NOVOFINE) 32G X 6 MM Misc Test blood sugar once a day 100 Each 2 7 Active nitroGLYCERIN (NITROSTAT) 0.4 MG SL Tablet 0 9 Active XARELTO 20 MG Tablet every evening. 0 Active aspirin EC 81 MG Tablet Delayed Response Take 81 mg by mouth. Active ferrous sulfate 325 (65 Fe) MG TabletIndicatio ns:Iron Deficiency Anemia Take 325 mg by mouth daily. Indications: Anemia From Inadequate Iron in the Body Active magnesium oxide (MAG-OX) 400 MG Tablet Take 1 Tablet by mouth 2 times daily. 30 Tablet 4 Active metoprolol Succinate (TOPROL-XL) 50 MG TABLET SR 24 HR Take 1 Tablet by mouth daily. 100 Tablet 2 4 Active atorvastatin (LIPITOR) 20 MG TabletIndicatio ns:Dyslipidemia TAKE 1 TABLET BY MOUTH ONCE DAILY 90 Tablet 3 4 Active Blood Glucose Monitoring Suppl Device Diagnosis: Diabetes type 2 Blood testing frequency: 3-4 times a day 1 Each 4 Active Glucose Blood Strip Diagnosis: Diabetes type 2 Blood testing frequency: 3-4 times a day 90 Strip 3 4 Active losartan (COZAAR) 50 MG Tablet TAKE 1 TABLET BY MOUTH DAILY 90 Tablet 1 4 Active Ozempic, 0.25 or 0.5 MG/DOSE, 2 MG/3ML Solution Pen-injector 0.5 mg by Subcutaneous route once a week. 3 mL 5 Active metFORMIN (GLUCOPHAGE) 500 MG Tablet Take 1 Tablet by mouth 2 times daily (with meals). 200 Tablet 2 5 Active Ozempic, 1 MG/DOSE, 4 MG/3ML Solution Pen-injectorInd ications:Contro lled type 2 diabetes mellitus without complication, without long-term current use of insulin 1 mg by Subcutaneous route once a week. 3 mL 11 5 Active levothyroxine (SYNTHROID) 75 MCG Tablet Take 1 Tablet by mouth daily. 100 Tablet 1 5 Active omeprazole (PriLOSEC) 40 MG CAPSULE DELAYED RELEASE Take 1 Capsule by mouth daily. 90 Capsule 1 5 Active gabapentin (NEURONTIN) 300 MG Capsule Take 1 Capsule by mouth 3 times daily. 90 Capsule 3 5 Active Active Problems Problem Noted Date Diagnosed Date Hiatal hernia 05/25/2023 Chronic atrial fibrillation 12/11/2022 Low bone mass 03/25/2019 Coronary artery disease invo lving [place] heart without angina pectoris 03/25/2019 BMI 40.0-44.9, adult 02/12/2019 Osteopenia after menopause 02/25/2018 Acquired hypothyroidism 02/25/2018 Dyslipidemia 07/19/2015 Diabetes type 2, controlled 07/19/2015 Essential hypertension 07/19/2015 Gastroesophageal reflux disease without esophagi tis 07/19/2015 Primary insomnia 07/19/2015 Microcytic anemia B12 deficiency Resolved Problems Problem Noted Date Diagnosed Date Resolved Date Osteoporosis 07/19/2015 02/25/2018 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 02/25/2018 Encounters Date Type Department Care Team Description 03/03/2025 MyChart RX Renewal [facility] [address] [place] [address] Ashwini Herrera DO Medication Renewal Declined 02/19/2025 Results Follow-Up [facility] [address] [place] [address] Ashwini Herrera DO [facility] BONE DENSITOMETRY AXIAL SKELETON 02/17/2025 1:41 PM CDT - 02/17/2025 11:59 PM CDT Hospital Encounter [facility] [address] [place] [address] Ashwini Herrera DO Discharge Disposition: Discharged to home or Selfcare 02/17/2025 Travel 01/22/2025 10:40 AM CDT Lab [facility] [address] [address] [facility] [place] [facility] Hypomagnesemia; Controlled type 2 diabetes mellitus without complication, without long-term current use of insulin; Screening for osteoporosis; Unspecified menopausal and perimenopausal disorder; Essential hypertension; Coronary artery disease involving [place] heart without angina pectoris, unspecified vessel or lesion type; Chronic atrial fibrillation (HCC); Microcytic anemia; Gastroesophageal reflux disease without esophagitis; B12 deficiency; Body mass index (BMI) 30.0-30.9, adult Discharge Disposition: Discharged to home or Selfcare 01/22/2025 10:00 AM CDT Office Visit [facility] [address] [place] [address] Ashwini Herrera DO Essential hypertension (Primary Dx); Screening for osteoporosis; Unspecified menopausal and perimenopausal disorder; Controlled type 2 diabetes mellitus without complication, without long-term current use of insulin; Coronary artery disease involving [place] heart without angina pectoris, unspecified vessel or lesion type; Chronic atrial fibrillation (HCC); Microcytic anemia; Gastroesophageal reflux disease without esophagitis; B12 deficiency; Body mass index (BMI) 30.0-30.9, adult Discharge Disposition: Discharged to home or Selfcare 01/20/2025 Travel 01/16/2025 [facility] [place] [address] Ashwini Herrera, BARBARA SCREENING BILATERAL DIGITAL W CAD W CHRISTIANO 01/16/2025 [facility] [place] [address] Ashwini Herrera, Medication Refill 01/15/2025 8:44 AM CDT - 01/15/2025 11:59 PM CDT [facility] [address] [place] [address] Ashwini Herrera, Discharge Disposition: Discharged to home or Selfcare 01/15/2025 Travel 01/06/2025 MyChart [facility] [place] [address] Ashwini Herrera, Medication Renewal Reviewed 01/06/2025 [facility] [place] [address] Ashwini Herrera, Medication Refill from Last 3 Months Immunizations Immunization Administration Dates Next Due Covid-19, Mrna, Lnp-s, PF, 1 00 mcg/0.5 mL Dose (Moderna) 11/04/2020,10/13/2020 Influenza Vaccine 07/25/2022 Influenza Vaccine, Quadrivalent, PF 05/17/2020,1 Influenza, High-dose, Quadrivalent 07/24/2022, Influenza, Quadrivalent, Adjuvanted 07/16/2023 Influenza, Trivalent, Adjuvanted, PF 06/03/2024 Influenza, high-dose, trivalent, PF 07/19/2015 PUR FLU HIGH DOSE (FLUZONE) 07/19/2015 Pneumococcal Vaccine - 13 Valent 02/25/2018 Pneumococcal Vaccine Adult - 23 Valent 0,11/25/2005 Zoster Vaccine Recombinant 05/26/2019,01/23/2019 Zoster Vaccine, live 05/31/2015 Family History Medical History Relation Name Comments Diabetes Brother 1 Hypertension Brother 1 Other-comment Brother 1 PAD, PVD No Known Problems Brother 2 No Known Problems Daughter Congestive Heart Failure Father Diabetes Father Cancer Mother lung Diabetes Mother Heart Disease Mother Heart Surgery Mother Lung Cancer Mother Thyroid Cancer Mother Hypertension Sister Osteoporosis Sister No Known Problems Son Relation Name Status Comments Brother 1 Alive Brother 2 Alive Daughter Alive Father Maternal Grandfather Maternal Grandmother Mother Paternal Grandfather Paternal Grandmother Sister Alive Son Alive Social History Tobacco Use Types Packs/Day Years Used Date Smoking Tobacco: Never Smokeless Tobacco: Never Tobacco Cessation:Counseling Given: Not Answered Alcohol Use Standard Drinks/Week Comments Yes 0 (1 standard drink = 0.6 oz pur e alcohol) OCCASIONAL ON WEEKENDS PHQ-2 Answer Date Recorded Total Score - Questions 1-9 0 12/26 Education Answer Date Recorded What is the highest level of school you have completed or the highest degree you have received? Associate degree: occupational, technical, or vocational program 03/12/2023 Sexually Active Control Partners Comments Not Currently Male Comments No Sex and Gender Information Value Date Recorded Sex Assigned at Female 09/26/2023 10:23 AM CREATIVE ASSISTANT Legal Sex Female 11:44 PM CDT Gender Identity Female 09/26/2023 10:23 AM CREATIVE ASSISTANT Sexual Orientation Straight 09/26/2023 10 :23 AM CREATIVE ASSISTANT Last Filed Vital Signs Vital Sign Reading Time Taken Comments Blood Pressure 124/74 01/22/2025 9:26 AM CDT Pulse 60 01/22/2025 9:26 AM CDT Temperature 36.2 C (97.2 F) 01/22/2025 9:26 AM CDT Respiratory Rate 16 01/22/2025 9:26 AM CDT Oxygen Saturation 97% 01/22/2025 9:26 AM CDT Inhaled Oxygen Concentration - - Weight 95.3 kg (210 lb) 01/22/2025 9:26 AM CDT Height 157.5 cm (5' 2) 01/22/2025 9:26 AM CDT Body Mass Index 38.41 01/22/2025 9:26 AM CDT Plan of Treatment Upcoming Encounters Date Type Department Care Team (Late Contact Info) Description 12/07/2025 10:00 AM CDT Office Visit [facility] [address] [place] [phone] Ashwini Herrera, DO [address] [place] [address] Health Maintenance Due Date Last Done Comments Influenza Immunization (#1) 2025 10/0 03/2024, 07/16/2023, 07/25/2022, Additional history exists Diabetes: Hemoglobin A1c 07/25/2025 025, 01/22/2025, 01/24/2024, Additional history exists Diabetes: Eye Exam 12/15/2025 12/15/2024, 0 12/10/2023, 08/07/2022, Additional history exists Diabetes: Foot Exam 01/22/2026 01/22/2025 Diabetes: Nephropathy Screening 01/22/2026 01/22/2025, 07/21/2024, 07/09/2023, Additional history exists DEXA Bone Density 02/17/2027 02/17/2025, , 03/18/2019, Additional history exists Zoster Immunization Completed 05/26/2019, 01/23/2019, 05/31/2015 Pneumococcal Immunization (50+ years) Completed 02/10/2020, 02/25/2018, 11/25/2005 Pneumococcal Immunization Combined Discontinued 02/10/2020, 02/25/2018, 11/25/2005 Immunochemical Fecal Occult Blood Discontinued 02/17/2021, 02/11/2019 SARS-COV-2 Immunization Discontinued 06/25/20, 11/04/2020, 10/13/2020 Colonoscopy Discontinued 02/23/2022, 01/27, 06/09/2011 Cologuard Discontinued 04/23/2023 Colorectal Cancer Screening Discontinued Mammogram Discontinued 01/15/2025, 11/25, 08/03/2022, Additional history exists Hepatitis B Immunization Aged Out No longer eligible based on patient's age to complete this topic Hepatitis C Virus (HCV) Screening Discontinued Human Papillomavirus (HPV) Immunization Aged Out No longer eligible based on patient's age to complete this topic Meningococcal Immunization (ACWY) Aged Out No longer eligible based on patient's age to complete this topic Respiratory Syncytial Virus (RSV) Immunization (Adult) Discontinued Rotavirus Immunization Aged Out No lo nger eligible based on patient's age to complete this topic TdaP Immunization Discontinued Medical Devices Implanted Type Area Payroll Coordinator Device Identifier Shelf Expiration Date Model / Serial / Lot Stent Coronary Jaye Xience Everolimus Eluting [id number] - [id number] Implanted:Qty: 1 on 03/20/2019 by Portia Mcginnis MD at [facility] IMPLANT [employer] 04/21/2019 [id number] / / [id number] Device Clsr 6-7fr Mynxgrip Professional Architect Vasc Bln Cath Lock Syr Integrate Sealant 10ml Lf Disp - [id number] Implanted:Qty: 1 on 03/20/2019 by Portia Mcginnis MD at [facility] IMPLANT [employer] 09/26/2020 [id number] / / [id number] Procedures Procedure Name Priority Date/Time Associated Diagnosis Comments BARBARA BONE DENSITOMETRY AXIAL SKELETON Routine 02/17/2025 2:00 PM CDT Screening for osteoporosis Unspecified menopausal and perimenopausal disorder CBC WITH AUTO DIFFERENTIAL Routine 01/22/2025 10:50 AM CDT Screening for osteoporosis Unspecified menopausal and perimenopausal disorder Controlled type 2 diabetes mellitus without complication, without long-term current use of insulin Essential hypertension Coronary artery disease involving [place] heart without angina pectoris, unspecified vessel or lesion type Chronic atrial fibrillation (HCC) Microcytic anemia Gastroesophageal reflux disease without esophagitis B12 deficiency VITAMIN D, 25 HYDROXY TOTAL Routine 01/22/2025 10:50 AM CDT Screening for osteoporosis Unspecified menopausal and perimenopausal disorder Controlled type 2 diabetes mellitus without complication, without long-term current use of insulin Essential hypertension Coronary artery disease involving [place] heart without angina pectoris, unspecified vessel or lesion type Chronic atrial fibrillation (HCC) Microcytic anemia Gastroesophageal reflux disease without esophagitis B12 deficiency Body mass index (BMI) 30.0-30.9, adult VITAMIN B12 Routine 01/22/2025 10:50 AM CDT Screening for osteoporosis Unspecified menopausal and perimenopausal disorder Controlled type 2 diabetes mellitus without complication, without long-term current use of insulin Essential hypertension Coronary artery disease involving [place] heart without angina pectoris, unspecified vessel or lesion type Chronic atrial fibrillation (HCC) Microcytic anemia Gastroesophageal reflux disease without esophagitis B12 deficiency IRON,TRANSFERN,CALC. TIBC,%SAT Routine 01/22/2025 10:50 AM CDT Screening for osteoporosis Unspecified menopausal and perimenopausal disorder Controlled type 2 diabetes mellitus without complication, without long-term current use of insulin Essential hypertension Coronary artery disease involving [place] heart without angina pectoris, unspecified vessel or lesion type Chronic atrial fibrillation (HCC) Microcytic anemia Gastroesophageal reflux disease without esophagitis B12 deficiency LIPID PANEL Routine 01/22/2025 10:50 AM CDT Screening for osteoporosis Unspecified menopausal and perimenopausal disorder Controlled type 2 diabetes mellitus without complication, without long-term current use of insulin Essential hypertension Coronary artery disease involving [place] heart without angina pectoris, unspecified vessel or lesion type Chronic atrial fibrillation (HCC) Microcytic anemia Gastroesophageal reflux disease without esophagitis B12 deficiency CMP (COMPREHENSIVE METABOLIC PANEL) Routine 01/22/2025 10:50 AM CDT Screening for osteoporosis Unspecified menopausal and perimenopausal disorder Controlled type 2 diabetes mellitus without complication, without long-term current use of insulin Essential hypertension Coronary artery disease involving [place] heart without angina pectoris, unspecified vessel or lesion type Chronic atrial fibrillation (HCC) Microcytic anemia Gastroesophageal reflux disease without esophagitis B12 deficiency COMPLETE BLOOD COUNT (CBC) WITH DIFF Routine 01/22/2025 10:50 AM CDT Screening for osteoporosis Unspecified menopausal and perimenopausal disorder Controlled type 2 diabetes mellitus without complication, without long-term current use of insulin Essential hypertension Coronary artery disease involving [place] heart without angina pectoris, unspecified vessel or lesion type Chronic atrial fibrillation (HCC) Microcytic anemia Gastroesophageal reflux disease without esophagitis B12 deficiency HEMOGLOBIN A1C W/ ESTIMATED GLUCOSE Routine 01/22/2025 10:50 AM CDT Controlled type 2 diabetes mellitus without complication, without long-term current use of insulin MAGNESIUM (MG) Routine 01/22/2025 10:50 AM CDT Hypomagnesemia POCT GLYCOSYLATED HEMOGLOBIN Routine 01/22/2025 10:31 AM CDT Controlled type 2 diabetes mellitus without complication, without long-term current use of insulin [facility] SCREENING BILATERAL DIGITAL W CAD W CHRISTIANO Routine 01/15/2025 9:16 AM CDT Encounter for screening mammogram for breast cancer DILATED EYE EXAM 12/15/2024 1 2:00 AM CDT COLOGUARD Routine 04/23/2023 8:30 AM CDT Screen for colon cancer COLONOSCOPY Routine 06/09/2011 from Last 3 Months or Most Recently Relevant to Health Maintenance Results * [facility] BONE DENSITOMETRY AXIAL SKELETON (02/17/2025 2:00 PM CDT) Anatomical Region Laterality Modality BODY N/A Computed Radiogr aphy 02/18/2025 5:22 PM CDT Impressions 02/18/2025 5:25 PM CDT IMPRESSION: 1. Low Bone Mass. REFERENCE: Bone mineral density: T-Score: Normal (T-score above or = -1.0) Low bone mass (T-score between -1.0 and -2.5) replaces the previously used term osteopenia Osteoporosis (T-score = or below -2.5) Z-Score: Within the expected range for age (Z-score above -2.0) Below the expected range for age (Z-score is -2.0 or below) Please see below follow up recommendations. Medical evaluation for secondary causes of low bone mineral density may be appropriate. FRAX is a World Health Organization validated fracture risk assessment tool that calculates a person's 10 year probability of a major osteoporosis related fracture and hip fracture. According to the National Osteoporosis Foundation guidelines, postmenopausal women and men age 50 or older with low bone mass and a 10 year probability of a major osteoporosis related fracture = or greater than 20% or a 10 year probability of a hip fracture = or greater than 3% should be considered for pharmacological treatment for the prevention of osteoporosis. For further information, including treatment recommendations, please refer to the 2019 ISCD Official Positions (http://www.iscd.org) and the NOF's Clinician's Guide to Prevention and Treatment of Osteoporosis (http://www.nof.org/professionals/clinical-guidelines) Narrative 02/18/2025 5:25 PM CDT EXAM DESCRIPTION: [facility] BONE DENSITOMETRY AXIAL SKELETON REASON FOR STUDY: 79 y/o year old F with given history of: Screening for osteoporosis Payroll Coordinator/Model: [employer] (S/N [id number]) Facility LSC value of 0.028 for the AP spine and 0.033 for the femur. CLINICAL INFORMATION: Current height: 62 inches Maximum height: 62 inches Weight: 209 pounds Risk factors: Postmenopausal, adult fracture, hyperparathyroidism COMPARISON: 03/18/2019 FINDINGS: AP LUMBAR SPINE L1-L4: Total BMD is 1.059 g/cm2 T-score is -1.1 This is decreased in comparison to prior exam which is not statistically significant. LEFT HIP: Total BMD is 0.943 g/cm2 T-score is -0.5 This is decreased in comparison to prior exam which is statistically significant. Femoral neck BMD is 0.918 g/cm2 T-score is -0.9 FRAX: 10 year risk for a major osteoporotic fracture is 14.3 %, 10 year risk for a hip fracture is 2.0 % Per National Osteoporosis Foundation guidelines, this patient does not meet the criteria for pharmacological treatment of patients with FRAX 10 year major osteoporotic fracture risk scores of = or greater than 20% or a 10 year probability of a hip fracture = or greater than 3%, to reduce fracture risk. Additional factors such as frequent falls are not represented in FRAX and warrant individual clinical judgment. THIS IS AN ELECTRONICALLY VERIFIED FINAL REPORT 02/18/2025 5:22 PM - Electronically signed by Candelario Garcia M.D. MF: JOHN Report ID: [id number] Reading Location: [id number] Procedure Note Candelario Garcia MD - 02/18/2025 EXAM DESCRIPTION: [facility] BONE DENSITOMETRY AXIAL SKELETON REASON FOR STUDY: 79 y/o year old F with given history of: Screening for osteoporosis Payroll Coordinator/Model: [employer] (S/N [id number]) Facility LSC value of 0.028 for the AP spine and 0.033 for the femur. CLINICAL INFORMATION: Current height: 62 inches Maximum height: 62 inches Weight: 209 pounds Risk factors: Postmenopausal, adult fracture, hyperparathyroidism COMPARISON: 03/18/2019 FINDINGS: AP LUMBAR SPINE L1-L4: Total BMD is 1.059 g/cm2 T-score is -1.1 This is decreased in comparison to prior exam which is not statistically significant. LEFT HIP: Total BMD is 0.943 g/cm2 T-score is -0.5 This is decreased in comparison to prior exam which is statistically significant. Femoral neck BMD is 0.918 g/cm2 T-score is -0.9 FRAX: 10 year risk for a major osteoporotic fracture is 14.3 %, 10 year risk for a hip fracture is 2.0 % Per National Osteoporosis Foundation guidelines, this patient does not meet the criteria for pharmacological treatment of patients with FRAX 10 year major osteoporotic fracture risk scores of = or greater than 20% or a 10 year probability of a hip fracture = or greater than 3%, to reduce fracture risk. Additional factors such as frequent falls are not represented in FRAX and warrant individual clinical judgment. THIS IS AN ELECTRONICALLY VERIFIED FINAL REPORT 02/18/2025 5:22 PM - Electronically signed by Candelario Garcia M.D. MF: JOHN Report ID: [id number] Reading Location: [place] [address] IMPRESSION: 1. Low Bone Mass. REFERENCE: Bone mineral density: T-Score: Normal (T-score above or = -1.0) Low bone mass (T-score between -1.0 and -2.5) replaces the previously used term osteopenia Osteoporosis (T-score = or below -2.5) Z-Score: Within the expected range for age (Z-score above -2.0) Below the expected range for age (Z-score is -2.0 or below) Please see below follow up recommendations. Medical evaluation for secondary causes of low bone mineral density may be appropriate. FRAX is a World Health Organization validated fracture risk assessment tool that calculates a person's 10 year probability of a major osteoporosis related fracture and hip fracture. According to the National Osteoporosis Foundation guidelines, postmenopausal women and men age 50 or older with low bone mass and a 10 year probability of a major osteoporosis related fracture = or greater than 20% or a 10 year probability of a hip fracture = or greater than 3% should be considered for pharmacological treatment for the prevention of osteoporosis. For further information, including treatment recommendations, please refer to the 2019 ISCD Official Positions (http://www.iscd.org) and the NOF's Clinician's Guide to Prevention and Treatment of Osteoporosis (http://www.nof.org/professionals/clinical-guidelines) us Ashwini Herrera DO IMG DEXA ORDERABLES Final Res ult * VITAMIN D, 25 HYDROXY TOTAL (01/22/2025 10:50 AM CDT) [facility] VITAMIN D, 25 HYDROX 39.9 ng/mL 01/22/2025 1:44 PM CDT [facility] Blood Venipuncture / Unknown 01/22/2025 10:50 AM CDT 01/22/2025 10:50 AM CDT Narrative [facility] - 01/22/2025 1:44 PM CDT Published reference ranges for Vitamin D vary depending on time and place and method of testing, and on patient's age, sex, ethnicity and levels of other measured analytes such as parathormone, calcium and phosphorus. The result should be evaluated in conjunction with clinical findings and suspicions. [place] [employer] [facility] Clinical Practice Guidelines: Status Vitamin D levels (ng/mL) Deficient <=20 At risk of inadequacy 21-29 Sufficient 30-100 Centers of Disease Control and Prevention Guidelines: Status Vitamin D levels (ng/mL) Deficient <13 At risk of inadequacy 13-19 Sufficient 20-50 Possibly harmful >50 References: [place] [employer], 2010 Dietary reference intakes for calcium and vitamin D. [place]: The National Academies Press. Kiki M, Corey N, Sarah Beth HUGGINS, et al., Evaluation, treatment, and prevention of Vitamin D deficiency: an Endocrinology Clinical Practice Guideline. JCEM 2011 96: 7 3481-7802. Maite A, Erick C, Shawn D, et al., Vitamin D Status: [place], , [facility] data brief, no. 59, MD Rosa M: [facility] Statistics. 2011. us Ashwini L Javier DO CHEMISTRY ORDERABLES Final Re sult Performing Organization Address City/[facility]/ZIP Co de Phone Number [facility] [address] [place] [address] * IRON,TRANSFERN,CALC.TIBC,%SAT (01/22/2025 10:50 AM CDT) Pathologist [facility] IRON 53 25 - 156 mcg/dL 01/22/2025 1:07 PM CDT [facility] TRANSFERRIN 275 173 - 360 mg/dL 01/22/2025 1:07 PM CDT [facility] TIBC, CALCULATED 344 265 - 497 mcg/dL 01/22/2025 1:07 PM CDT [facility] % SATURATION * 15 15 - 62 % 01/22/2025 1:07 PM CDT [facility] Blood Venipuncture / Unknown 01/22/2025 10:50 AM CDT 01/22/2025 10:50 AM CDT us Ashwini L Javier DO CHEMISTRY ORDERABLES Final Re sult Performing Organization Address [facility] de Phone Number [facility] [address] [place] [address] * (ABNORMAL) HEMOGLOBIN A1C W/ ESTIMATED GLUCOSE (01/22/2025 10:50 AM CDT) HGB-A1C 6.2(H) 4.0 - 6.0 % 01/22/2025 12:52 PM CDT [facility] Est Average Glucose 131.2 mg/dL 01/22/2025 12:52 PM CDT [facility] Blood Venipuncture / Unknown 01/22/2025 10:50 AM CDT 01/22/2025 10:50 AM CDT Narrative [facility] - 01/22/2025 12:52 PM CDT HEMOGLOBIN A1C: DIABETIC PATIENTS: WELL-CONTROLLED: 6.2 - 7.0 INTERMEDIATE WELL-CONTROLLED: 7.0 - 9.0 POORLY-CONTROLLED: >9.0 Specimens containing greater than 5% of Hemoglobin F may result in lower than expected % HbA1C results. us Ashwini Herrera DO CHEMISTRY ORDERABLES Final Re sult [facility] [address] [place] [address] * (ABNORMAL) CBC WITH AUTO DIFFERENTIAL (01/22/2025 10:50 AM CDT) WBC 6.04 4.00 - 12.00 10(3)/mcL 01/22/2025 12:16 PM CDT [facility] RBC 4.42 3.80 - 5.30 10(6)/mcL 01/22/2025 12:16 PM CDT [facility] HEMOGLOBIN (HGB) 13.6 12.0 - 15.8 g/dL 01/22/2025 12:16 PM CDT [facility] HEMATOCRIT (HCT) 41.9 36.0 - 47.0 % 01/22/2025 12:16 PM CDT [facility] MCV 94.8 82.0 - 96.0 fL 01/22/2025 12:16 PM CDT [facility] MCH 30.8 26.0 - 34.0 pg 01/22/2025 12:16 PM CDT [facility] MCHC 32.5 31.0 - 36.0 g/dL 01/22/2025 12:16 PM CDT [facility] PLATELET COUNT 242 140 - 440 10(3)/mcL 01/22/2025 12:16 PM CDT [facility] RDW 13.5 11.8 - 15.5 % 01/22/2025 12:16 PM CDT [facility] MPV 10.4 9.7 - 12.4 fL 01/22/2025 12:16 PM CDT [facility] NEUTROPHILS 68.8 47.0 - 73.0 % 01/22/2025 12:16 PM CDT [facility] LYMPHOCYTES 20.4 18.0 - 42.0 % 01/22/2025 12:16 PM CDT [facility] MONOCYTES 7.3 4.0 - 12.0 % 01/22/2025 12:16 PM CDT [facility] EOSINOPHILS 3.0 0.0 - 5.0 % 01/22/2025 12:16 PM CDT [facility] BASOPHILS 0.5 0.0 - 1.0 % 01/22/2025 12:16 PM CDT [facility] ABSOLUTE NEUTROPHILS 4.16 1.60 - 7.70 10(3)/[facility] 01/22/2025 12:16 PM CDT [facility] ABSOLUTE LYMPHOCYTES 1.23(L) 1.30 - 3.20 10(3)/[facility] 01/22/2025 12:16 PM CDT [facility] ABSOLUTE MONOCYTES 0.44 0.20 - 1.00 10(3)/[facility] 01/22/2025 12:16 PM CDT [facility] ABSOLUTE EOSINOPHIL 0.18 0.00 - 0.40 10(3)/[facility] 01/22/2025 12:16 PM CDT [facility] ABSOLUTE BASOPHILS 0.03 0.00 - 0.10 10(3)/[facility] 01/22/2025 12:16 PM CDT [facility] NRBC PER 100 WBC 0 01/23/20 12:16 PM CDT [facility] Blood Venipuncture / Unknown 01/22/2025 10:50 AM CDT 01/22/2025 10:50 AM CDT us Ashwini Herrera DO HEMATOLOGY ORDERABLES Final R esult Performing Organization Address [facility]/ZIP Co de Phone Number [facility] [address] [place] [address] * VITAMIN B12 (01/22/2025 10:50 AM CDT) VITAMIN B12 611 213 - 816 pg/mL 01/22/2025 1:44 PM CDT [facility] Blood Venipuncture / Unknown 01/22/2025 10:50 AM CDT 01/22/2025 10:50 AM CDT us Ashwini Herrera DO CHEMISTRY ORDERABLES Final Re sult Performing Organization Address [facility] Co de Phone Number [facility] [address] [place] [address] * MAGNESIUM (MG) (01/22/2025 10:50 AM CDT) MAGNESIUM 1.6 1.6 - 2.6 mg/dL 01/22/2025 1:07 PM CDT [facility] Blood Venipuncture / Unknown 01/22/2025 10:50 AM CDT 01/22/2025 10:50 AM CDT us Ashwini Mehta Javier DO CHEMISTRY ORDERABLES Final Re sult Performing Organization Address [facility] Co de Phone Number [facility] [address] [place] [address] * (ABNORMAL) LIPID PANEL (01/22/2025 10:50 AM CDT) CHOLESTEROL 121 <200 mg/dL 01/22/2025 1:07 PM CDT [facility] TRIGLYCERIDES 165(H) <150 mg/dL 01/22/2025 1:07 PM CDT [facility] HDL CHOLESTEROL 44 >40 mg/dL 1:07 PM CDT [facility] LDL 44 <130 mg/dL 01/22/2025 1:07 PM CDT [facility] VLDL 33 10 - 50 mg/dL 01/22/2025 1:07 PM CDT [facility] CHOL/HDL RATIO 2.8 0.0 - 4.4 01/22/2025 1:07 PM CDT [facility] NON-HDL CHOLESTEROL 77 <130 mg/dL 01/22/2025 1:07 PM CDT [facility] IS THE PATIENT REQUIRED TO BE FASTING? No 01/22/2025 1:07 PM CDT [facility] Blood Venipuncture / Unknown 01/22/2025 10:50 AM CDT 01/22/2025 10:50 AM CDT us Ashwini Herrera DO CHEMISTRY ORDERABLES Final Re sult [facility] [address] [place] [address] * (ABNORMAL) CMP (COMPREHENSIVE METABOLIC PANEL) (01/22/2025 10:50 AM CDT) SODIUM 141 136 - 145 mmol/L 01/22/2025 1:07 PM CDT [facility] POTASSIUM 4.3 3.5 - 5.1 mmol/L 01/22/2025 1:07 PM CDT [facility] CHLORIDE 105 98 - 107 mmol/L 01/22/2025 1:07 PM CDT [facility] CO2, VENOUS 25 22 - 30 mmol/L 01/22/2025 1:07 PM CDT [facility] ANION GAP 15.3 <18.0 mmol/L 01/22/2025 1:07 PM CDT [facility] GLUCOSE 130(H) 70 - 99 mg/dL 01/22/2025 1:07 PM CDT [facility] BUN 13 10 - 20 mg/dL 01/22/2025 1:[address] [facility] CREATININE, BLOOD 0.91 0.60 - 1.00 mg/dL 01/22/2025 1:[address] [facility] BUN/CREATININE RATIO 14 12 - 20 ratio 01/22/2025 1:[address] [facility] TOTAL PROTEIN 7.4 6.0 - 8.0 g/dL 01/22/2025 1:[address] [facility] ALBUMIN 4.4 3.5 - 5.0 g/dL 01/22/2025 1:[address] [facility] A/G RATIO 1.5 1.0 - 2.2 01/22/2025 1:[address] [facility] CALCIUM 10.1 8.7 - 10.5 mg/dL 01/22/2025 1:[address] [facility] T BILI 0.8 0.2 - 1.2 mg/dL 01/22/2025 1:[address] [facility] SGOT (AST) 32 <43 U/L 01/22/2025 1:[address] [facility] SGPT (ALT) 22 <56 U/L 01/22/2025 1:[address] [facility] ALKALINE PHOSPHATASE 105 40 - 150 U/L 01/22/2025 1:[address] [facility] IS THE PATIENT REQUIRED TO BE FASTING? No 01/22/2025 1:[address] [facility] GFR, ESTIMATED >60 >=60 01/22/2025 1:[address] [facility] Comment: Creatinine Clearance is the preferred criteria for selecting drug dose adjustments in renally impaired patients. The GFR is provided as additional pertinent clinical information. GFR is reported in mL/min/1.73 sq m. Calculation based on the Chronic Kidney Disease Epidemiology Collaboration (CKD- EPI) equation refit without adjustment for race. GFR, EST. >60 >=60 025 1:[address] [facility] GFR, EST. NONAFRICAN 60 >=60 01/22/2025 1:07 PM CDT [facility] Blood Venipuncture / Unknown 01/22/2025 10:50 AM CDT 01/22/2025 10:50 AM CDT us Ashwini Herrera DO CHEMISTRY ORDERABLES Final Re sult [facility] [address] [place] [address] * (ABNORMAL) POCT GLYCOSYLATED HEMOGLOBIN (01/22/2025 10:31 AM CDT) HGB-A1C 6.1(A) 4 - 6 % Blood 01/22/2025 10:3 1 AM CDT us Ashwini Herrera DO POINT OF CARE TESTING (MANUAL ) Final Result * [facility] SCREENING BILATERAL DIGITAL W CAD W CHRISTIANO (01/15/2025 9:16 AM CDT) Anatomical Region Laterality Modality breast Bilateral Mammography 01/15/2025 8:46 AM CDT Narrative 01/16/2025 9:41 AM CDT - [facility] SCREENING BILATERAL DIGITAL W CAD W CHRISTIANO BILATERAL DIGITAL SCREENING MAMMOGRAM 3D/2D WITH CAD WITH MEDIOLATERAL OBLIQUE CRANIOCAUDAL: 01/15/2025 The study was acquired using digital technology and interpreted from soft copy. Current study was also evaluated with ICAD version 7.2. 2D digital mammographic views, as well as 3D digital tomosynthesis were performed in the CC and MLO projections. CLINICAL: Routine screening. Patient has no complaints. Pacemaker left chest. No personal history of cancer. No family history of breast cancer. COMPARISONS: Comparison is made to exams dated: 05/30/2021, 08/03/2022, and 12/10/2023 [facility]. BREAST TISSUE:There are scattered areas of fibroglandular density. FINDINGS: There are benign vascular calcifications in both breasts. No significant masses, calcifications, or other findings are seen in either breast. There has been no significant interval change. IMPRESSION: BENIGN There is no mammographic evidence of malignancy. A 1 year screening mammogram is recommended. A letter will be sent to the patient with these results. The patient will be entered into a reminder system with a target due date of 1 year for her next screening exam. Electronically signed by: David Tang M.D. /penrad:01/15/2025 17:03:17 [employer] Mica(s): RT Mann(R)(M), [facility] letter sent: Normal Exam Reading location: [place] Mammogram BI-RADS: Category 2: Benign Procedure Note David Tang MD - 01/16/2025 - [facility] SCREENING BILATERAL DIGITAL W CAD W CHRISTIANO BILATERAL DIGITAL SCREENING MAMMOGRAM 3D/2D WITH CAD WITH MEDIOLATERAL OBLIQUE CRANIOCAUDAL: 01/15/2025 The study was acquired using digital technology and interpreted from soft copy. Current study was also evaluated with ICAD version 7.2. 2D digital mammographic views, as well as 3D digital tomosynthesis were performed in the CC and MLO projections. CLINICAL: Routine screening. Patient has no complaints. Pacemaker left chest. No personal history of cancer. No family history of breast cancer. COMPARISONS: Comparison is made to exams dated: 05/30/2021, 08/03/2022, and 12/10/2023 [facility]. BREAST TISSUE:There are scattered areas of fibroglandular density. FINDINGS: There are benign vascular calcifications in both breasts. No significant masses, calcifications, or other findings are seen in either breast. There has been no significant interval change. IMPRESSION: BENIGN There is no mammographic evidence of malignancy. A 1 year screening mammogram is recommended. A letter will be sent to the patient with these results. The patient will be entered into a reminder system with a target due date of 1 year for her next screening exam. Electronically signed by: David Tang M.D. ll/penrad:01/15/2025 17:03:17 [employer] Mica(s): Nelida Eddie, RT(R)(M), [facility] letter sent: Normal Exam Reading location: [place] Mammogram BI-RADS: Category 2: Benign us Ashwini Herrera DO IMG MAMMO ORDERABLES Final Re sult * [facility] DILATED EYE EXAM (12/15/2024 12:00 AM CDT) 12/15/2024 us Provider Scan PROCEDURE/MINOR SURGICAL ORDERAB LES Final Result SCAN * COLOGUARD (04/23/2023 8:30 AM CDT) Cologuard Negative Negative [facility] Comment: NEGATIVE TEST RESULT. A negative Cologuard result indicates a low likelihood that a colorectal cancer (CRC) or advanced adenoma (adenomatous polyps with more advanced pre-malignant features) is present. The chance that a person with a negative Cologuard test has a colorectal cancer is less than 1 in 1500 (negative predictive value >99.9%) or has an advanced adenoma is less than 5.3% (negative predictive value 94.7%). These data are based on a prospective cross-sectional study of 10,000 individuals at average risk for colorectal cancer who were screened with both Cologuard and colonoscopy. (Bryant Meredith et al, N Engl J Med 2014;370(14):1286-5147) The normal value (reference range) for this assay is negative. COLOGUARD RE-SCREENING RECOMMENDATION: Periodic colorectal cancer screening is an important part of preventive healthcare for asymptomatic individuals at average risk for colorectal cancer. Following a negative Cologuard result, the [place] [employer] Society and U.S. Multi-Society Task Force screening guidelines recommend a Cologuard re-screening interval of 3 years. References: [place] [employer] Guideline for Colorectal Cancer Screening: https://www.cancer.org/cancer/qydzh-qqzdxf-mxfzji/owjewnifg-lecwaflgr-zwnqcpv/ acs-recommendations.html.; Flip EDOUARD, Jax BADILLO, Rusty HEIN, Colorectal Cancer Screening: Recommendations for Physicians and Patients from the U.S. Multi-Society Task Force on Colorectal Cancer Screening , Am J Gastroenterology 2017; 112:6797-8756. TEST DESCRIPTION: Composite algorithmic analysis of stool DNA-biomarkers with hemoglobin immunoassay. Quantitative values of individual biomarkers are not reportable and are not associated with individual biomarker result reference ranges. Cologuard is intended for colorectal cancer screening of adults of either sex, 45 years or older, who are at average-risk for colorectal cancer (CRC). Cologuard has been approved for use by the U.S. FDA. The performance of Cologuard was established in a cross sectional study of average-risk adults aged 50-84. Cologuard performance in patients ages 45 to 49 years was estimated by sub-group analysis of near-age groups. Colonoscopies performed for a positive result may find as the most clinically significant lesion: colorectal cancer [4.0%], advanced adenoma (including sessile serrated polyps greater than or equal to 1cm diameter) [20%] or non- advanced adenoma [31%]; or no colorectal neoplasia [45%]. These estimates are derived from a prospective cross-sectional screening study of 10,000 individuals at average risk for colorectal cancer who were screened with both Cologuard and colonoscopy. (Bryant Hicks. et al, N Engl J Med 2014;370(14):2104-5334.) Cologuard may produce a false negative or false positive result (no colorectal cancer or precancerous polyp present at colonoscopy follow up). A negative Cologuard test result does not guarantee the absence of CRC or advanced adenoma (pre-cancer). The current Cologuard screening interval is every 3 years. ([place] [employer] and U.S. Multi-Society Task Force). Cologuard performance data in a 10,000 patient pivotal study using colonoscopy as the reference method can be accessed at the following location: www.[employer].com/results. Additional description of the Cologuard test process, warnings and precautions can be found at www.[employer].com. Stool 04/23/2023 8:30 AM CDT 04/24/2023 8:35 PM CDT Sonya López MD BODY FLUIDS & STOOLS ORDERA BLES Final Result [facility] [address] [place] [address], [place] [phone] [address] [place] [address] * COLONOSCOPY (06/09/2011) us Flaco Irizarry DO PROCEDURE/MINOR SURGICAL ORDERAB LES Edited Result - Final from Last 3 Months or Most Recently Relevant to Health Maintenance Insurance [facility] Advance Directives Documents on File Type Date Recorded Patient Shot Coat Tender Expl anation Power of Garment Sewer Hand for Health Care 05/03/2023 6:58 AM Power of Garment Sewer Hand fo r Health Care Care Teams Net Manager Relationship Specialty Start Date End Date Ashwini Herrera DO [address] [facility] [place] [address] PCP - General Family Medicine 01/24/24 Chance Miller MD #[address] [facility] [address] [place] [address] Consulting Physician Colon and Rectal Surgery 04/13/23
--- OUTSIDE RECORDS SUMMARY | 2025-04-02 10:23 | XMS_ITS | Encounter Summary ---
Author Organization [facility] Address [address] [place] [place] [address] Phone Care Team Providers Care Wire Frame Lampshade Maker Name Role Phone Sonya López MD Primary Care Provider Chance Miller MD Unavailable Gabo Long MD Primary Care Provider [phone] Ashwini Herrera DO Primary Care Provider Reason for Visit * Reason Comments Medication Refill Encounter Details Date Type Department Care Team (Late st Contact Info) Description 12/10/2022 Refill [facility] [address] [place] [address] Sonya López [place] [address] [place] [address] Medication Refill Social History Tobacco Use Types [...] Sex Assigned at Female 09/26/2023 10:23 AM ENGINEERING FACULTY MEMBER Legal Sex Female 11:44 PM CDT Gender Identity Female 09/26/2023 10:23 AM ENGINEERING FACULTY MEMBER Sexual Orientation Straight 09/26/2023 10 :23 AM ENGINEERING FACULTY MEMBER COVID-19 Exposure Response Date Recorded In the last 10 days, have yo u been in contact with someone who was confirmed or suspected to have Coronavirus/COVID-19? No / Unsure 12/11/2022 8:23 AM CDT documented as of this encounter Functional Status * Question Answer Date of Assessment Author Little interest or pleasure in doing things Not at all 12/11/2022 8:00 AM CDT Helen Flores MA Feeling down, depressed, or hopeless Not at all 12/11/2022 8:00 AM CDT Helen Flores MA * Over the past 2 weeks, how often have you been bothered by any of the following problems? Question Answer Date of Assessment Author Patient Health Questionnaire-2 Score 0 11/25 8:00 AM CDT Helen Flores MA documented as of this encounter Miscellaneous Notes * Telephone Encounter - Cherelle Temple RN - 12/11/2022 11:11 AM CDT Medication failed the protocol, provider to review and approve the medication order if appropriate. Requested Prescriptions Pending Prescriptions Disp Refills glipiZIDE (GLUCOTROL) 5 MG Tablet [Pharmacy Med Name: glipiZIDE 5 MG Oral Tablet] 100 Tablet 2 Sig: TAKE 1 TABLET BY MOUTH DAILY WITH BREAKFAST Sulfonylureas Protocol Failed - 12/10/2022 10:22 PM Failed - GFR on record in past 6 months GFR, EST. NONAFRICAN Date Value Ref Range Status 12/06/2021 >60 >=60 Final Passed - Visit with relevant provider in past 6 months or upcoming 90 days Recent Visits Date Type Provider Dept 07/26/22 Office Visit Sonya López MD [facility] Showing recent visits within past 182 days and meeting all other requirements Today's Visits Date Type Provider Dept 12/11/22 Office Visit Sonya López MD [facility] Showing today's visits and meeting all other requirements Future Appointments No visits were found meeting these conditions. Showing future appointments within next 90 days and meeting all other requirements Passed - HgA1C on record in past 6 months HGB-A1C Date Value Ref Range Status 07/26/2022 6.7 (H) 4.0 - 6.0 % Final omeprazole (PriLOSEC) 40 MG CAPSULE DELAYED RELEASE [Pharmacy Med Name: Omeprazole 40 MG Oral Capsule Delayed Release] 100 Capsule 2 Sig: TAKE 1 CAPSULE BY MOUTH DAILY Proton Pump Inhibitors Protocol Passed - 12/10/2022 10:22 PM Passed - Visit with relevant provider in past 12 months or upcoming 90 days Recent Visits Date Type Provider Dept 07/26/22 Office Visit Sonya López MD [facility] 03/21/22 Office Visit Sonya López MD [facility] Showing recent visits within past 365 days and meeting all other requirements Today's Visits Date Type Provider Dept 12/11/22 Office Visit Sonya López MD [facility] Showing today's visits and meeting all other requirements Future Appointments No visits were found meeting these conditions. Showing future appointments within next 90 days and meeting all other requirements losartan (COZAAR) 50 MG Tablet [Pharmacy Med Name: Losartan Potassium 50 MG Oral Tablet] 100 Tablet2 Sig: TAKE 1 TABLET BY MOUTH DAILY ARB Protocol Failed - 12/10/2022 10:22 PM Failed - Serum potassium on record in past 12 months POTASSIUM Date Value Ref Range Status 12/06/2021 4.2 3.5 - 5.1 mmol/L Final Failed - GFR on record in past 12 months GFR, EST. NONAFRICAN Date Value Ref Range Status 12/06/2021 >60 >=60 Final Passed - BP on record in the past year Clinician-entered: BP Readings from Last 3 Encounters: 12/11/22 128/72 07/26/22 124/78 03/21/22 124/88 Patient-entered: No data recorded Passed - Visit with relevant provider in past year or upcoming 90 days Recent Visits Date Type Provider Dept 07/26/22 Office Visit Sonya López MD [facility] 03/21/22 Office Visit Soyna López MD [facility] Showing recent visits within past 365 days and meeting all other requirements Today's Visits Date Type Provider Dept 12/11/22 Office Visit Sonya López MD [facility] Showing today's visits and meeting all other requirements Future Appointments No visits were found meeting these conditions. Showing future appointments within next 90 days and meeting all other requirements documented in this encounter Plan of Treatment Upcoming Encounters Date Type Department Care Team (Late st Contact Info) Description 12/07/2025 10:00 AM CDT Office Visit [facility] [address] [place] [address] Ashwini Herrera DO [address] [facility] [address] [place] [address] documented as of this encounter Visit Diagnoses Diagnosis Controlled type 2 diabetes mellitus without complication, without long-term current use of insulin documented in this encounter Additional Health Concerns Infection Onset Date Last Indicated Resolved Time COVID - 19 03/30/2023 03/30/2023 04/09/2023 12:1 6 AM CDT COVID - 19 Confirmed 03/30/2023 03/30/202304/19/ 023 12:16 AM CDT COVID - 19 Confirmed 04/23/2023 04/23/2023 023 12:16 AM CDT Assessment Noted Time PHQ-9 Depression Total Score: 0 02/10/20 20 7:31 AM CDT documented as of this encounter Care Teams Wire Frame Lampshade Maker Relationship Specialty Start Date End Date Sonya López MD PCP - General Family Medicine 02/26/18 07/30/23 Gabo Long MD [address] [address] PCP - General Family Medicine 12/10/23 01/23/24 Ashwini Herrera DO 2 [facility] [address] [place] [address] PCP - General Family Medicine 01/24/24 Chance Miller MD [address] [place] [address] Consulting Physician Colon and Rectal Surgery 04/13/23 documented as of this encounter
--- OUTSIDE RECORDS SUMMARY | 2025-04-02 10:23 | XMS_ITS | Encounter Summary ---
Author Organization [facility] Address [address] [facility] [place] [address] Phone Care Team Providers Care Laundry Helper Name Role Phone Sonya López MD Primary Care Provider Chance Miller MD Unavailable Gabo Long MD Primary Care Provider [phone] Ashwini Herrera DO Primary Care Provider [phone] Reason for Visit * Reason Comments Medication Refill Encounter Details Date Type Department Care Team (Late st Contact Info) Description 01/15/2023 Refill [facility] Medical Group - Family Medicine [facility] [address] [place] [address] Sonya López [place] [address] [place] [address] Medication Refill Social History Tobacco Use Types [...] Sex Assigned at Female 09/26/2023 10:23 AM TUBE CUTTER OPERATOR Legal Sex Female 11:44 PM CDT Gender Identity Female 09/26/2023 10:23 AM TUBE CUTTER OPERATOR Sexual Orientation Straight 09/26/2023 10 :23 AM TUBE CUTTER OPERATOR documented as of this encounter Miscellaneous Notes * Telephone Encounter - Janki Luna RN - 01/15/2023 1:23 PM CDT Medication failed the protocol, provider to review and approve the medication order if appropriate. Requested Prescriptions Pending Prescriptions Disp Refills atorvastatin (LIPITOR) 20 MG Tablet [Pharmacy Med Name: Atorvastatin Calcium 20 MG Oral Tablet] 100Tablet 2 Sig: TAKE 1 TABLET BY MOUTH DAILY Hmg CoA Reductase Inhibitors Protocol Passed - 01/15/2023 4:06 AM Passed - Visit with relevant provider in past 12 months or upcoming 90 days Recent Visits Date Type Provider Dept 12/11/22 Office Visit Sonya López MD [facility] 07/26/22 Office Visit [facility]a L[facility] MD [facility] [...] Range Status 12/11/2022 76.7 <130 mg/dL Final metoprolol Succinate (TOPROL-XL) 50 MG TABLET SR 24 HR [Pharmacy Med Name: Metoprolol Succinate ER 50 MG Oral Tablet Extended Release 24 Hour] 100 Tablet 2 Sig: TAKE 1 TABLET BY MOUTH DAILY Beta-Blockers Protocol Passed - 01/15/2023 4:06 AM Passed - BP on record in the past year Clinician-entered: BP Readings from Last 3 Encounters: 12/11/22 128/72 07/26/22 124/78 03/21/22 124/88 Patient-entered: No data recorded Passed - Visit with relevant provider in past 12 months or upcoming 90 days Recent Visits Date Type Provider Dept 12/11/22 Office Visit Sonya López MD [facility] 07/26/22 Office Visit Sonya López MD [facility] 03/21/22 Office Visit Sonya López MD [facility] Showing recent visits within past 365 days and meeting all other requirements Future Appointments Date Type Provider Dept 03/12/23 Appointment Sonya López MD [facility] Showing future appointments within next 90 days and meeting all other requirements levothyroxine (SYNTHROID) 75 MCG Tablet [Pharmacy Med Name: Levothyroxine Sodium 75 MCG Oral Tablet] 100 Tablet 2 Sig: TAKE 1 TABLET BY MOUTH DAILY Thyroid Hormones Protocol Failed - 01/15/2023 4:06 AM Failed - Normal TSH in past 12 months TSH Date Value Ref Range Status 12/11/2022 5.920 (H) 0.270 - 4.200 mIU/L Final Passed - Visit with relevant provider in past 12 months or upcoming 90 days Recent Visits Date Type Provider Dept 12/11/22 Office Visit Sonya López MD [facility] 07/26/22 Office Visit Sonya López MD [facility] [...] Description 12/07/2025 10:00 AM CDT Office Visit [facility] Medical Group - Family Medicine - [place] [address] [place] [address] Ashwini Herrera DO 2 [facility] [address] [place] [address] documented as of this encounter Visit Diagnoses [...] documented as of this encounter Care Teams Laundry Helper Relationship Specialty Start Date End Date Sonya López MD PCP - General Family Medicine 02/26/18 07/30/23 Gabo Long MD #[address] [address] PCP - General Family Medicine 12/10/23 01/23/24 Ashwini Herrera DO 2 [facility] [place] [address] [address] PCP - General Family Medicine 01/24/24 Chance Miller MD #[address] [address] Consulting Physician Colon and Rectal Surgery 04/13/23 documented as of this encounter
[2025-04-02 11:06] LABS: Hematocrit 37.8 % (37.0-47.0); Hemoglobin 12.1 g/dL (12.0-15.0)
--- NOTE | 2025-04-02 11:27 | ECG_ITS ---
Test Date: 2025-04-02 11:40:11 Measurements Intervals [place] Rate: 60 P: 151 NC: 332 QRS: -41 QRSD: 90 T: 51 QT: 421 QTc: 421 Interpretive Statements ELECTRONIC ATRIAL PACEMAKER LEFT AXIS DEVIATION PATTERN CONSISTENT WITH PULMONARY DISEASE BORDERLINE ST ABNORMALITY- HIGH LATERAL LEADS BASELINE ARTIFACT- I, II, III, AVR, AVL, AVF, V1-V6 BORDERLINE ECG No previous ECG available for comparison Electronically Signed On 04-02-2025 11:48:01 CDT by Moisés Alonzo D.O.
[2025-04-02 11:31] LABS: Albumin Level 4.3 g/dL (3.5-5.1); Estimated Glomerular Filt Rate > 60; Glucose 111 mg/dL (65-110)
[2025-04-02 11:38] LABS: Hemoglobin A1C 6.4 % (<5.7)
== END 2025-04-02 10:11 | disposition home or self-care (01) ==
PROVIDERS: PCP Student in an Organized Health Care Education/Training Program; Visit Provider Orthopaedic Surgery
DX: M17.12 Unilateral primary osteoarthritis, left knee (principal); E11.9 Type 2 diabetes mellitus without complications; I10 Essential (primary) hypertension; M85.862 Other specified disorders of bone density and structure, left lower leg
CPT/HCPCS: 36415; 73700; 82040; 82565; 82947; 83036; 85014; 85018; 93005

== ENCOUNTER 2025-05-11 08:43 | Outpatient (CLI) | payer MEDICARE, SELFPAY ==
--- OUTSIDE RECORDS SUMMARY | 2025-05-11 09:17 | XMS_ITS | Encounter Summary ---
Author Organization [facility] Address [address] [facility] [place] [address] Phone Care Team Providers Care Recep Name Role Phone Sonya López MD Primary Care Provider Chance Miller MD Unavailable Gabo Long MD Primary Care Provider [phone] Ashwini Herrera DO Primary Care Provider [phone] Reason for Visit * Reason Comments Medication Refill Encounter Details Date Type Department Care Team (Late st Contact Info) Description 07/07/2020 Refill [facility] Medical Group - Family Medicine [facility] [address] [place] [address] Sonya López [place] [address] [place] [id number] Medication Refill Social History Tobacco Use Types [...] Sex Assigned at Female 09/26/2023 10:23 AM FILLER SHAKER Legal Sex Female 11:44 PM CDT Gender Identity Female 09/26/2023 10:23 AM FILLER SHAKER Sexual Orientation Straight 09/26/2023 10 :23 AM FILLER SHAKER documented as of this encounter Plan of Treatment Upcoming Encounters Date Type Department Care Team (Late st Contact Info) Description 12/07/2025 10:00 AM CDT Office Visit [facility] Family [facility] [address]2 [place] [address] sAhwini Herrera DO 2 [facility] [place] [address] [address] documented as of this encounter Visit Diagnoses [...] documented as of this encounter Care Teams Recep Relationship Specialty Start Date End Date Sonya López MD PCP - General Family Medicine 02/26/18 07/30/23 Gabo Long MD #[address] [address] PCP - General Family Medicine 12/10/23 01/23/24 Ashwini Herrera DO 2 [facility] [place] [address] [address] PCP - General Family Medicine 01/24/24 Chance Miller MD #[address] [address] Consulting Physician Colon and Rectal Surgery 04/13/23 documented as of this encounter
--- OUTSIDE RECORDS SUMMARY | 2025-05-11 09:17 | XMS_ITS | Encounter Summary ---
Author Organization [facility] Address [address] [facility] [place] [address] Phone Care Team Providers Care Director Of Partnerships Name Role Phone Sonya López MD Primary Care Provider Chance Miller MD Unavailable Gabo Long MD Primary Care Provider [phone] Ashwini Herrera DO Primary Care Provider [phone] Encounter Details Date Type Department Care Team (Late st Contact Info) Description 04/26/2023 [facility] [address] [place] [address] Chance Miller MD [address] [address] Preop testing (Primary Dx); Oropharyngeal dysphagia Social [...] Sex Assigned at Female 09/26/2023 10:23 AM MACHINE TRY OUT SETTER Legal Sex Female 11:44 PM CDT Gender Identity Female 09/26/2023 10:23 AM MACHINE TRY OUT SETTER Sexual Orientation Straight 09/26/2023 10 :23 AM MACHINE TRY OUT SETTER COVID-19 Exposure Response Date Recorded In the last 10 days, have yo u been in contact with someone who was confirmed or suspected to have Coronavirus/COVID-19? No / Unsure 04/23/2023 11:00 AM CDT documented as of this encounter Plan of Treatment Upcoming Encounters Date Type Department Care Team (Late st Contact Info) Description 12/07/2025 10:00 AM CDT Office Visit [facility] Medical Group - Family Medicine - [place] [address] [place] [address] Ashwini Herrera, DO 2 [facility], [address] [id number] documented as of this encounter Results * SARS-COV-2 BY MOLECULAR (05/01/2023 10:19 AM CDT) SARSCOV2 NOT DETECTED (Referenc e Range for this test is Not Detected) [facility] ID NOW 05/01/2023 10:53 AM CDT [facility] Comment:This test was perfor med by a MOLECULAR, NON-PCR method Other NASOPHARYNGEAL STRUCTURE / Unknown Non-Phlebotomy Collection / Unknown 05/01/2023 10:19 AM CDT 05/01/2023 10:36 AM CDT Narrative [facility] - 05/01/2023 10:53 AM CDT [...] information for Clinicians can be found at: https://www.fda.gov/media/446661/download Additional information for Patients can be found at: https://www.fda.gov/media/842936/download Chance Miller MD MICROBIOLOGY - GENERAL ORDERABLE S Final Result [email or web address] [address] [place] [address] documented in this encounter Visit Diagnoses Diagnosis Preop testing- Primary Preoperative examination, unspecified Oropharyngeal dysphagia Dysphagia, oropharyngeal phase documented in this encounter Additional Health Concerns Infection Onset Date Last Indicated Resolved Time COVID - 19 Confirmed 04/23/2023 04/23/2023 023 12:16 AM CDT Assessment Noted Time PHQ-9 Depression Total Score: 0 03/12/20 23 12:00 PM CDT documented as of this encounter Care Teams Director Of Partnerships Relationship Specialty Start Date End Date Sonya López MD PCP - General Family Medicine 02/26/18 07/30/23 Gabo Long MD [address] [facility] [address] [place] [address] PCP - General Family Medicine 12/10/23 01/23/24 Ashwini Herrera DO 2 [facility] [place] [facility] [address] [place] [address] PCP - General Family Medicine 01/24/24 Chance Miller MD #2 [facility] [address] [place] [address] Consulting Physician Colon and Rectal Surgery 04/13/23 documented as of this encounter
--- OUTSIDE RECORDS SUMMARY | 2025-05-11 09:18 | XMS_ITS | Encounter Summary ---
Author Organization [facility] Address [address] [facility] [place] [address] Phone Care Team Providers Care Sewage Disposal Worker Name Role Phone Chance Miller MD Unavailable Ashwini Herrera DO Primary Care Provider [phone] Reason for Visit * Reason Comments Medication Refill Encounter Details Date Type Department Care Team (Late st Contact Info) Description 02/12/2024 Refill [facility] - Family Medicine [facility] #2 [place] [address] Neftali Rueda APRN, REALTIME CAPTIONER [address] [address] Medication Refill Social History Tobacco Use Types [...] Sex Assigned at Female 09/26/2023 10:23 AM FACILITY SERVICE ASSOCIATE Legal Sex Female 11:44 PM CDT Gender Identity Female 09/26/2023 10:23 AM FACILITY SERVICE ASSOCIATE Sexual Orientation Straight 09/26/2023 10 :23 AM FACILITY SERVICE ASSOCIATE documented as of this encounter Miscellaneous [...] Dept 01/24/24 Office Visit Ashwini Herrera DO [facility] Showing recent visits within past 182 days [...] Group - Family Medicine - [place] [address] [place] [address] Ashwini Herrera DO [address] [address] documented as of this encounter Visit Diagnoses Not on filedocumented in this encounter Additional Health Concerns Assessment Noted Time PHQ-9 Depression Total Score: 0 03/12/20 23 12:00 PM CDT documented as of this encounter Care Teams Sewage Disposal Worker Relationship Specialty Start Date End Date Ashwini Herrera DO 2 [address] [facility]. [address] [place] [address] PCP - General Family Medicine 01/24/24 Chance Miller MD [address] [facility] [address] [place] [address] Consulting Physician Colon and Rectal Surgery 04/13/23 documented as of this encounter
--- OUTSIDE RECORDS SUMMARY | 2025-05-11 09:18 | XMS_ITS | Encounter Summary ---
Author Organization [facility] Address [address] [facility] [place] [address] Phone Care Team Providers Care Traffic Counter Name Role Phone Sonya López MD Primary Care Provider Chance Miller MD Unavailable Gabo Long MD Primary Care Provider [phone] Ashwini Herrera DO Primary Care Provider [phone] Reason for Visit * Reason Comments Medication Refill Encounter Details Date Type Department Care Team (Late st Contact Info) Description 01/15/2023 Refill [facility] Medical Group - Family Medicine [facility] [address] [place] [address] Sonya López [place] [address] [place] [address] Medication Refill Social History Tobacco Use Types [...] Sex Assigned at Female 09/26/2023 10:23 AM MAGNETIC RESONANCE IMAGING DIRECTOR Legal Sex Female 11:44 PM CDT Gender Identity Female 09/26/2023 10:23 AM MAGNETIC RESONANCE IMAGING DIRECTOR Sexual Orientation Straight 09/26/2023 10 :23 AM MAGNETIC RESONANCE IMAGING DIRECTOR documented as of this encounter Miscellaneous Notes [...] Description 12/07/2025 10:00 AM CDT Office Visit [facility] Medical Group - Family Medicine - [place] [address] [place] [address] Ashwini Herrera DO 2 [facility] [place] [facility] [address] [place] [address] documented as of this encounter Visit Diagnoses [...] documented as of this encounter Care Teams Traffic Counter Relationship Specialty Start Date End Date Sonya López MD PCP - General Family Medicine 02/26/18 07/30/23 Gabo Long MD #[address] [address] PCP - General Family Medicine 12/10/23 01/23/24 Ashwini Herrera DO 2 [facility] [place] [address] [address] PCP - General Family Medicine 01/24/24 Chance Miller MD #[address] [address] Consulting Physician Colon and Rectal Surgery 04/13/23 documented as of this encounter
--- OUTSIDE RECORDS SUMMARY | 2025-05-11 09:18 | XMS_ITS | Encounter Summary ---
Author Organization [facility] Address [address] [facility] [place] [address] Phone Care Team Providers Care Marine Oil Terminal Superintendent Name Role Phone Chance Miller MD Unavailable Ashwini Herrera DO Primary Care Provider [phone] Reason for Visit * Reason Comments Medication Refill Encounter Details Date Type Department Care Team (Late st Contact Info) Description 06/19/2024 Refill [facility] - Family Medicine [facility] #2 [place] [address] Alison Keane APRN, TACK CLEANER [address] [address] Medication Refill Social History Tobacco [...] Assigned at Female 09/26/2023 10:23 AM ENVIRONMENTAL AUDITOR Legal Sex Female 11:44 PM CDT Gender Identity Female 09/26/2023 10:23 AM ENVIRONMENTAL AUDITOR Sexual Orientation Straight 09/26/2023 10 :23 AM ENVIRONMENTAL AUDITOR documented as of this encounter Miscellaneous Notes * Telephone Encounter - Janki Luna RN - 06/20/2024 3:31 PM CDT Images from the original note were not included. Atorvastatin Calcium Dispensed Days Supply Quantity Provider Pharmacy ATORVASTATIN CALCIUM 20 MG TABS 05/17/2024 90 90 Tablet Alison Keane APRN, [place] [facility] [place] ATORVASTATIN CALCIUM 20 MG TABS 02/22/2024 90 90 Tablet Alison Keane APRN, [place] [facility] ... documented in this encounter Plan of Treatment Upcoming Encounters Date Type Department Care Team (Late st Contact Info) Description 12/07/2025 10:00 AM CDT [facility] Visit [facility] - [place] [address] [place] [address] Ashwini Herrera DO 2 [facility] [address] [place] [address] documented as of this encounter Visit Diagnoses Diagnosis Dyslipidemia Other and unspecified hyperlipidemia documented in this encounter Additional Health Concerns Assessment Noted Time PHQ-9 Depression Total Score: 0 03/12/20 23 12:00 PM CDT documented as of this encounter Care Teams Marine Oil Terminal Superintendent Relationship Specialty Start Date End Date Ashwini Herrera DO 2 [facility] [place] [facility] [address] [place] [address] PCP - General Family Medicine 01/24/24 Chance Miller MD #2 [facility] [address] [place] [address] Consulting Physician Colon and Rectal Surgery 04/13/23 documented as of this encounter
--- OUTSIDE RECORDS SUMMARY | 2025-05-11 09:18 | XMS_ITS | Clinical Summary ---
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 03/25/2019 BMI 40.0-44.9, [...] RX Renewal [facility] [address] [place] [address] Ashwini Herrera DO Medication Renewal Declined 02/19/2025 Results Follow-Up [facility] [place] [address] [place] [address] Ashwini Herrera DO [facility] BONE DENSITOMETRY AXIAL SKELETON 02/17/2025 1:41 PM CDT - 02/17/2025 11:59 PM CDT [facility] [place] [address] Ashwini Herrera DO Discharge Disposition: Discharged to home or Selfcare 02/17/2025 Travel from Last 3 Months Immunizations Immunization Administration [...] Sex Assigned at Female 09/26/2023 10:23 AM KILN OPERATOR HELPER Legal Sex Female 11:44 PM CDT Gender Identity Female 09/26/2023 10:23 AM KILN OPERATOR HELPER Sexual Orientation Straight 09/26/2023 10 :23 AM KILN OPERATOR HELPER Last Filed Vital Signs Vital Sign Reading [...] [facility] [place] [address] [place] [id number] Ashwini Herrera, DO [address], [facility]. [address] [place] [address] Health Maintenance Due Date Last Done Comments Influenza Immunization (#1) 2025 10/0 03/2024, 07/16/2023, 07/25/2022, Additional history exists Diabetes: Hemoglobin A1c 07/25/2025 025, 01/22/2025, 01/24/2024, Additional history exists Diabetes: Foot Exam 01/22/2026 01/22/2025 Diabetes: Nephropathy Screening 01/22/2026 01/22/2025, 07/21/2024, 07/09/2023, Additional history exists Diabetes: Eye Exam 04/02/2026 04/02/2025, 0 12/15/2024, 12/10/2023, Additional history exists DEXA Bone Density 02/17/2027 [...] Immunization Discontinued Medical Devices Implanted Type Area Applications Manager Device Identifier Shelf Expiration Date Model / Serial / Lot Stent Coronary Jaye Xience Everolimus Eluting [id number] - [id number] Implanted:Qty: 1 on 03/20/2019 by Portia Mcginnis MD at [facility] IMPLANT [employer] 04/21/2019 [id number] / / [id number] Device Clsr 6-7fr Mynxgrip Production Assembly Operator Vasc Bln Cath Lock Syr Integrate Sealant 10ml Disp - [id number] Implanted:Qty: 1 on 03/20/2019 by Portia Mcginnis MD at [facility] IMPLANT [employer] Inc 09/26/2020 [id number] / / [id number] Procedures Procedure Name Priority Date/Time Associated Diagnosis Comments DILATED EYE EXAM 04/02/2025 1 2:00 AM CDT XR - LOWER EXTREMITY 03/20/2025 12:00 AM CDT [facility] BONE DENSITOMETRY AXIAL SKELETON Routine 02/17/2025 2:00 PM CDT Screening for osteoporosis Unspecified menopausal and perimenopausal disorder CMP (COMPREHENSIVE METABOLIC PANEL) Routine 01/22/2025 10:50 AM CDT Screening for osteoporosis Unspecified menopausal and perimenopausal disorder Controlled type 2 diabetes mellitus without complication, without long-term current use of insulin Essential hypertension 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, unspecified vessel or lesion type Chronic atrial fibrillation (HCC) Microcytic anemia Gastroesophageal reflux disease without esophagitis B12 deficiency HEMOGLOBIN A1C W/ ESTIMATED GLUCOSE Routine 01/22/2025 10:50 AM CDT Controlled type 2 diabetes mellitus without complication, without long-term current use of insulin [facility] SCREENING BILATERAL DIGITAL W CAD W CHRISTIANO Routine 01/15/2025 9:16 AM CDT Encounter for screening mammogram for breast cancer COLOGUARD Routine 04/23/2023 8:30 AM CDT Screen for colon cancer COLONOSCOPY Routine 06/09/2011 from Last 3 Months or Most Recently Relevant to Health Maintenance Results * DILATED EYE EXAM (04/02/2025 12:00 AM CDT) 04/02/2025 us Provider Scan PROCEDURE/MINOR SURGICAL ORDERAB LES Final Result Performing Organization Address City/[facility]/ZIP Co de Phone Number SCAN * XR - LOWER EXTREMITY (03/20/2025 12:00 AM CDT) 03/20/2025 us Provider Scan IMG DIAGNOSTIC ORDERABLES Final Result Performing Organization Address [facility] de Phone Number SCAN * [facility] BONE DENSITOMETRY AXIAL SKELETON (02/17/2025 2:00 PM CDT) Anatomical Region Laterality Modality BODY N/A Computed Radiogr aphy 02/18/2025 5:2 2 PM CDT Impressions 02/18/2025 5:25 PM CDT [...] Narrative 02/18/2025 5:25 PM CDT EXAM DESCRIPTION: [facility] BONE DENSITOMETRY AXIAL SKELETON REASON FOR STUDY: 79 y/o year old F with given history of: Screening for osteoporosis Applications Manager/Model: Neterion (S/N [id number]) Facility LSC value of 0.028 for the [...] Candelario Garcia M.D. MF: JOHN Report ID: [id number] Reading Location: [place] [address] Procedure Note Candelario Garcia MD - 02/18/2025 EXAM DESCRIPTION: [facility] BONE DENSITOMETRY AXIAL SKELETON REASON FOR STUDY: 79 y/o year old F with given history of: Screening for osteoporosis Applications Manager/Model: Neterion (S/N [id number]) Facility LSC value of 0.028 for the [...] Candelario Garcia M.D. MF: JOHN Report ID: [id number] Reading Location: [place] [address] IMPRESSION: 1. Low Bone Mass. REFERENCE: Bone [...] to Prevention and Treatment of Osteoporosis (http://www.nof.org/professionals/clinical-guidelines) Ashwini Herrera DO IMG DEXA ORDERABLES Final Res ult * (ABNORMAL) HEMOGLOBIN A1C W/ ESTIMATED GLUCOSE (01/22/2025 10:50 AM CDT) HGB-A1C 6.2(H) 4.0 - 6.0 % 01/22/2025 12:52 PM CDT [facility] Est Average Glucose 131.2 mg/dL 01/22/2025 12:52 PM CDT [facility] Blood Venipuncture / Unknown 01/22/2025 10:50 AM CDT 01/22/2025 10:50 AM CDT Narrative [facility] - 01/22/2025 12:52 PM CDT HEMOGLOBIN A1C: DIABETIC PATIENTS: WELL-CONTROLLED: 6.2 - 7.0 INTERMEDIATE WELL-CONTROLLED: 7.0 - 9.0 POORLY-CONTROLLED: >9.0 Specimens containing greater than 5% of Hemoglobin F may result in lower than expected % HbA1C results. Ashwini Herrera DO CHEMISTRY ORDERABLES Final Re sult [facility] [address] [place] [address] * (ABNORMAL) CMP (COMPREHENSIVE METABOLIC PANEL) (01/22/2025 10:50 AM CDT) SODIUM 141 136 - 145 mmol/L 01/22/2025 1:07 PM CDT [facility] POTASSIUM 4.3 3.5 - 5.1 mmol/L 01/22/2025 1:07 PM CDT [facility] CHLORIDE 105 98 - 107 mmol/L 01/22/2025 1:07 PM CDT [facility] CO2, VENOUS 25 22 - 30 mmol/L 01/22/2025 1:07 PM T [facility] ANION GAP 15.3 <18.0 mmol/L 01/22/2025 1:07 PM T [facility] GLUCOSE 130(H) 70 - 99 mg/dL 01/22/2025 1:07 PM T [facility] BUN 13 10 - 20 mg/dL 01/22/2025 1:07 PM T [facility] CREATININE, BLOOD 0.91 0.60 - 1.00 mg/dL 01/22/2025 1:07 PM T [facility] BUN/CREATININE RATIO 14 12 - 20 ratio 01/22/2025 1:07 PM [facility] TOTAL PROTEIN 7.4 6.0 - 8.0 g/dL 01/22/2025 1:07 PM T [facility] ALBUMIN 4.4 3.5 - 5.0 g/dL 01/22/2025 1:07 PM T [facility] A/G RATIO 1.5 1.0 - 2.2 01/22/2025 1:07 PM [facility] CALCIUM 10.1 8.7 - 10.5 mg/dL 01/22/2025 1:07 PM [facility] T BILI 0.8 0.2 - 1.2 mg/dL 01/22/2025 1:07 PM [facility] SGOT (AST) 32 <43 U/L 01/22/2025 1:07 PM T [facility] SGPT (ALT) 22 <56 U/L 01/22/2025 1:07 PM [facility] ALKALINE PHOSPHATASE 105 40 - 150 U/L 01/22/2025 1:07 PM [facility] IS THE PATIENT REQUIRED TO BE FASTING? No 01/22/2025 1:07 PM T [facility] GFR, ESTIMATED >60 >=60 01/22/2025 1:07 PM [facility] Comment: Creatinine Clearance is the preferred criteria for selecting drug dose adjustments in renally impaired patients. The GFR is provided as additional pertinent clinical information. GFR is reported in mL/min/1.73 sq m. Calculation based on the Chronic Kidney Disease Epidemiology Collaboration (CKD- EPI) equation refit without adjustment for race. GFR, EST. >60 >=60 025 1:07 PM CDT [facility] GFR, EST. NONAFRICAN 60 >=60 01/22/2025 1:07 PM CDT [facility] Blood Venipuncture / Unknown 01/22/2025 10:50 AM CDT 01/22/2025 10:50 AM CDT us Ashwini Herrera DO CHEMISTRY ORDERABLES Final Re sult [facility] [address] [place] [address] * BARBARA SCREENING BILATERAL DIGITAL W CAD W CHRISTIANO (01/15/2025 9:16 AM CDT) Anatomical Region Laterality Modality breast Bilateral Mammography 01/15/2025 8:46 AM CDT Narrative 01/16/2025 9:41 AM CDT - BARBARA SCREENING BILATERAL DIGITAL W CAD [...] to exams dated: 05/30/2021, 08/03/2022[facility] BRE[facility] TISSUE:There are scattered areas of fibroglandular [...] signed by: David Tang M.D. ll/penrad:01/15/2025 17:03:17 Graduate Fellow(s): RT Mann(R)(M), [facility] letter sent: Normal Exam Reading location: [place] [...] to exams dated: 05/30/2021, 08/03/2022, and 12/10/2023 [facility]. BREAST TISSUE:There are scattered areas of fibroglandular [...] signed by: David Tang M.D. ll/penrad:01/15/2025 17:03:17 Graduate Fellow(s): BISHOP Darnell)(M), [facility] letter sent: Normal Exam Reading location: [place] Mammogram BI-RADS: Category 2: Benign us Ashwini Herrera DO IMG MAMMO ORDERABLES Final Re sult * COLOGUARD (04/23/2023 8:30 AM CDT) Cologuard Negative Negative [facility] Comment: NEGATIVE TEST RESULT. A negative [...] Meredith et al, N Engl J Med 2014;370(14):0646-6128) The normal value (reference range) for this assay is negative. COLOGUARD RE-SCREENING RECOMMENDATION: Periodic colorectal cancer screening is an important part of preventive healthcare for asymptomatic individuals at average risk for colorectal cancer. Following a negative Cologuard result, the [place] Cancer Society and U.S. Multi-Society Task Force screening guidelines recommend a Cologuard re-screening interval of 3 years. References: [place] Cancer Society Guideline for Colorectal Cancer Screening: https://www.cancer.org/cancer/tjjdo-rzptjk-exifme/hsspbencw-osfxsjoxn-nmausjb/ acs-recommendations.html.; Flip DK, Jax BADILLO, Rusty LopezK, Colorectal Cancer Screening: Recommendations for Physicians and Patients from the U.S. Multi-Society Task Force on Colorectal Cancer Screening , Am J Gastroenterology 2017; 112:7157-7324. TEST DESCRIPTION: Composite algorithmic analysis of stool [...] screened with both Cologuard and colonoscopy. (Bryant Abraham al, N Engl J Med 2014;370(14):6303-7778.) Cologuard may produce a false negative or false positive result (no colorectal cancer or precancerous polyp present at colonoscopy follow up). A negative Cologuard test result does not guarantee the absence of CRC or advanced adenoma (pre-cancer). The current Cologuard screening interval is every 3 years. ([place] Cancer Society and U.S. Multi-Society Task Force). Cologuard performance data in a 10,000 patient pivotal study using colonoscopy as the reference method can be accessed at the following location: www.NormOxys/results. Additional description of the Cologuard test process, warnings and precautions can be found at www.The Online Backup CompanyogGreenlotsrd.com. Stool 04/23/2023 8:30 AM CDT 04/24/2023 8:35 PM CDT Sonya López MD BODY FLUIDS & STOOLS ORDERA BLES Final Result [facility] [address] [place] [address], [employer] [address] [place] [address] * HM COLONOSCOPY (06/09/2011) Flaco D Irizarry DO PROCEDURE/MINOR SURGICAL ORDERAB LES Edited Result - Final from Last 3 Months or Most Recently Relevant to Health Maintenance Insurance MEDICARE C [facility] Advance Directives Documents on File Type Date Recorded Patient Circus Hand Expl anation Power of Dramatic Reader for Health Care 05/03/2023 6:58 AM Power of Dramatic Reader fo r Health Care Care Teams Plant Protection Guard Relationship Specialty Start Date End Date Ashwini Herrera DO [address] [facility] [address] [place] [address] PCP - General Family Medicine 01/24/24 Chance Miller MD [address] [facility] [address] [place] [address] Consulting Physician Colon and Rectal Surgery 04/13/23
--- OUTSIDE RECORDS SUMMARY | 2025-05-11 09:18 | XMS_ITS | Clinical Summary ---
Author Organization [facility] Address [address] [place] [address] Care Team Providers Care Perl Software Engineer Name Role Phone Ashwini Herrera DO Primary Care Provider [phone] Allergies Active Allergy Reactions Criticality Noted Date [...] 1 tablet (75 mcg total) by mouth senior contracts manager before breakfast 90 tablet 3 5 Active [...] (03/03/2022): Added automatically from request for surgery [id number] Coronary artery disease invo lving teller coronary artery of teller heart without angina pectoris 01/20/2022 Persistent atrial [...] Encounters Date Type Department Care Team Description 04/29/2025 11:45 AM CDT Ancillary Procedure [employer]lope Flask Fitter [address] [place] [address] Sick sinus syndrome (HCC); Paroxysmal atrial fibrillation (HCC); Pacemaker from Last 3 Months Surgical History Surgery Date Site/Laterality Comments OTHER SURGICAL HISTORY 1964 : OTHER SURGICAL HISTORY 1969 : OTHER SURGICAL HISTORY 1983 S/P TVH and anterior repair OTHER SURGICAL HISTORY Left arthroscopic, knee OTHER SURGICAL HISTORY Hemorrhoids: [facility] Medical History Medical History Date Comments Hx Other Medical 1964 ; Outc ome: 8 lb(s) 14 oz Female Hx Other Medical 1969 ; Outc ome: 7 lb(s) 10 oz Male Disorder of thyroid Thyroid dise ase Hyperlipidemia Hyperlipidemia Hypertension Hypertension Diabetes mellitus (HCC) Diabetes mellitus Hx Other Medical 2006 lichen sclerosu s Hx Other Medical Hemorrhoids; [...] on file Legal Sex Female 1:54 AM WOODWORKER HELPER Gender Identity Female 02/11/2021 9:48 AM CDT [...] B Screening 1964 Well Visit 65+ 2011 Depression Screening 05/16/2024 05/16/2023, 02/18/20 Influenza Vaccine (#1) 2025 , 07/25/2022, 05/17/2020, Additional history exists eGFR 04/29/2025 04/29/2024, 01/26, 04/25/2022, Additional history exists Fall Risk Assessment 05/01/2025 05/01/2024 Lipid Panel 01/22/2026 01/22/2025, 12/27, 12/06/2021, Additional history exists Osteoporosis Screening-Bone Density Scan 02/17/2027 02/17/2025, 02/17/2025, 03/18/2019, Additional history exists Zoster Vaccine Completed 05/26/2019, 12/27, 05/31/2015 Pneumococcal vaccine 65+ Completed 020, 02/25/2018, 11/25/2005 Breast Cancer Screening-Mammogram Discontinued 01/15/2025, 01/15/2025, 12/10/2023, Additional history exists Medical Devices Implanted Type Area K 9 Handler/ Deputy Device Identifier Shelf Expiration Date Model / Serial / Lot Biotronik Inc Endocardial Pacing Lead Promri Solia Jt [id number] - [id number] - [id number] Implanted:Qty: 1 on 04/30/2024 by Rashi Shanks MD at [facility] Lead [employer] Inc 11/24/2025 [id number] / [id number] / Biotronik Inc Endocardial Pacing Lead Promri Solstacy T [id number] - [id number] - [id number] Implanted:Qty: 1 on 04/30/2024 by Rashi Shanks MD at [facility] Lead [employer] Inc 11/24/2024 [id number] / [id number] / Medtronic Inc Tyrx Absorbable Antibacterial Envelope-Large 3.3x2.9in [id number] - [id number] Implanted:Qty: 1 on 04/30/2024 by Rashi Shanks MD at [facility] Mesh Medtronic Inc 01/24/2025 [id number] / / [id number] Biotronik Inc Pacemaker Implantable Amvia Edge Dual Chamb Rate-Responsive [id number] - [id number] - [id number] Implanted:Qty: 1 on 04/30/2024 by Rashi Shanks MD at [facility] Pacemaker [employer] Inc 09/26/2025 [id number] / [id number] / Procedures Procedure Name Priority Date/Time Associated Diagnosis Comments DEVICE CHECK - REMOTE Routine 04/28/2025 1:45 PM CDT Sick sinus syndrome (HCC) Paroxysmal atrial fibrillation (HCC) Pacemaker EGFR Routine 04/29/2024 9:32 AM CDT Sick sinus syndrome (HCC) SCREENING MAMMOGRAM BILATERAL W CULLEN Schedule Routine, Read Routine (OP Routine) 12/10/2023 4:23 PM CDT DEXA AXIAL SKELETON BONE DENSITY 1 OR MORE SITES Schedule Routine, Read Routine (OP Routine) 03/18/2019 Asymptomatic menopausal state Screening for osteoporosis from Last 3 Months or Most Recently Relevant to Health Maintenance Results * DEVICE CHECK - REMOTE (04/28/2025 1:45 PM CDT) Anatomical Region Laterality Modality Other Narrative 05/01/2025 12:57 PM CDT Images from the original result were not included. 04/29/2025 [email or web address] quarterly remote device check NOTE The following shows snippets from the complete quarterly report. The complete report in its entirety is attached to this Result Text in Activity Assistant Last in-office check: December 2024 Next in-office appointment: June 2025 Battery longevity = OK/95% AT/AF burden 0.0% Ap: 63% RVp: 2% Device Nurse Review and Recommendations below Reviewed By Tiffany Coulter CONSULTING MARINE ENGINEER at 12:43 PM Review and Recommendations below (please forward [...] MD LAB BLOOD ORDERABLES Final Re sult [facility] Department of Laboratories [place], [place] [id number] * Screening Mammogram Bilateral W Cullen (12/10/2023 4:23 PM CDT) Anatomical Region Laterality Modality Breast Bilateral Mammography us Historical Provider MD ALMANZA MAMMO PROCEDURES Staci l Result from Last 3 Months or Most Recently Relevant to Health Maintenance Insurance [facility] MEDIC[facility] Address: [address] [address] [place] [address] [facility] MED[facility] Address: [address] [address] [place] [address] Advance Directives For more information, please contact: [phone] * Full Code (Latest Code Status on File) Date Activated Date Inactivated Comments 03/07/2022 9:34 AM 03/07/2022 11:14 PM Care Teams Perl Software Engineer Relationship Specialty Start Date End Date Ashwini Herrera DO PCP - General Family Medicine 04/17/24
--- OUTSIDE RECORDS SUMMARY | 2025-05-11 09:18 | XMS_ITS | Encounter Summary ---
Author Organization [facility] Address [address] [place] [address] Phone Care Team Providers Care Sr. Payroll Processor Name Role Phone Chance Miller MD Unavailable Ashwini Herrera DO Primary Care Provider [phone] Reason for Visit * Reason Comments Medication Refill Encounter Details Date Type Department Care Team (Late st Contact Info) Description 02/05/2024 Refill [facility] [address] [place] [address] Alison Keane APRN, AUTOMATION CONTROLS EXPERT [address] [address] Medication Refill Social History Tobacco [...] Sex Assigned at Female 09/26/2023 10:23 AM SPLICER MACHINE OPERATOR Legal Sex Female 11:44 PM CDT Gender Identity Female 09/26/2023 10:23 AM SPLICER MACHINE OPERATOR Sexual Orientation Straight 09/26/2023 10 :23 AM SPLICER MACHINE OPERATOR documented as of this encounter Miscellaneous Notes * Telephone Encounter - Janki Luna RN - 02/06/2024 8:39 AM CDT Medication(s) refilled and signed per [facility] Chronic Medication Refill Standing Order for [...] Dept 01/24/24 Office Visit Ashwini Herrera DO [facility] 07/16/23 Office Visit Sonya López MD [facility] 04/12/23 Office Visit Alison Keane APRN, AUTOMATION CONTROLS EXPERT [facility] 03/12/23 Office Visit Sonya López MD [facility] Showing recent visits within past 365 days [...] Office Visit [facility] [address] [place] [address] Ashwini Herrera DO 2 [facility] [facility] [address] [place] [address] documented as of this encounter Visit Diagnoses Diagnosis Dyslipidemia Other and unspecified hyperlipidemia documented in this encounter Additional Health Concerns Assessment Noted Time PHQ-9 Depression Total Score: 0 03/12/20 23 12:00 PM CDT documented as of this encounter Care Teams Sr. Payroll Processor Relationship Specialty Start Date End Date Ashwini Herrera DO 2 [facility] [address] [facility] [address] [place] [address] PCP - General Family Medicine 01/24/24 Chance Miller MD [address] [address] Consulting Physician Colon and Rectal Surgery 04/13/23 documented as of this encounter
--- OUTSIDE RECORDS SUMMARY | 2025-05-11 09:18 | XMS_ITS | Encounter Summary ---
Author Organization [facility] Address [address] [facility] [place] [address] Phone Care Team Providers Care Pottery Decoration Designer Name Role Phone Sonya López MD Primary Care Provider [phone] Chance Miller MD Unavailable Gabo Long MD Primary Care Provider [phone] Ashwini Herrera DO Primary Care Provider [phone] Reason for Visit * Reason Comments Medication Refill Encounter Details Date Type Department Care Team (Late st Contact Info) Description 12/10/[address] [facility] - Family Medicine [facility] [address] [place] [address] Sonya López [place] [address] [place] [address] Medication Refill Social History Tobacco Use Types [...] Sex Assigned at Female 09/26/2023 10:23 AM SALES AND MERCHANDISING ASSOCIATE Legal Sex Female 11:44 PM CDT Gender Identity Female 09/26/2023 10:23 AM SALES AND MERCHANDISING ASSOCIATE Sexual Orientation Straight 09/26/2023 10 :23 AM SALES AND MERCHANDISING ASSOCIATE COVID-19 Exposure Response Date Recorded In the [...] Family [facility] [address] [place] [address] Ashwini Herrera DO 2 [facility] [address] [place] [address] documented as of this encounter Visit Diagnoses [...] documented as of this encounter Care Teams Pottery Decoration Designer Relationship Specialty Start Date End Date Sonya López MD PCP - General Family Medicine 02/26/18 07/30/23 Gabo Long MD #[address] [address] PCP - General Family Medicine 12/10/23 01/23/24 Ashwini Herrera DO 2 [facility] [address] [facility] [address] [place] [address] PCP - General Family Medicine 01/24/24 Chance Miller MD #2 [place] [address] Consulting Physician Colon and Rectal Surgery 04/13/23 documented as of this encounter
--- OUTSIDE RECORDS SUMMARY | 2025-05-11 09:18 | XMS_ITS | Encounter Summary ---
Author Organization [facility] Address [address] [facility] [place] [address] Phone Care Team Providers Care Labor Relations Analyst Name Role Phone Chance Miller MD Unavailable Gabo Long MD Primary Care Provider [phone] Ashwini Herrera DO Primary Care Provider [phone] Reason for Visit * Reason Comments Medication Refill Encounter Details Date Type Department Care Team (Late st Contact Info) Description 08/24/2023 Refill [facility] #2 [place] [address] Sonya López [place] [address] [place] [address] Medication Refill Social History Tobacco Use Types [...] Sex Assigned at Female 09/26/2023 10:23 AM LARD MIXER Legal Sex Female 11:44 PM CDT Gender Identity Female 09/26/2023 10:23 AM LARD MIXER Sexual Orientation Straight 09/26/2023 10 :23 AM LARD MIXER documented as of this encounter Miscellaneous Notes * Telephone Encounter - Janki Luna RN - 08/24/2023 11:05 AM CST Name from pharmacy: glipiZIDE 5 MG Oral Tablet Will file in chart as: glipiZIDE (GLUCOTROL) 5 MG Tablet The original prescription was discontinued on 07/16/2023 by Sonya López MD for the following reason: Therapy completed. MIXER documented in this encounter Plan of Treatment Upcoming Encounters Date Type Department Care Team (Late st Contact Info) Description 12/07/2025 10:00 AM CDT Office Visit [facility] Family [facility] #2 [place] [address] Ashwini Herrera DO [address] [address] documented as of this encounter Visit Diagnoses Diagnosis Controlled type 2 diabetes mellitus without complication, without long-term current use of insulin documented in this encounter Additional Health Concerns Assessment Noted Time PHQ-9 Depression Total Score: 0 03/12/20 23 12:00 PM CDT documented as of this encounter Care Teams Labor Relations Analyst Relationship Specialty Start Date End Date Gabo Long MD #[address] [address] PCP - General Family Medicine 12/10/23 01/23/24 Ashwini Herrera DO [address] [address] PCP - General Family Medicine 01/24/24 Chance Miller MD #[address] [address] Consulting Physician Colon and Rectal Surgery 04/13/23 documented as of this encounter
--- OUTSIDE RECORDS SUMMARY | 2025-05-11 09:18 | XMS_ITS | Encounter Summary ---
Author Organization [facility] Address [address] [facility] [place] [address] Phone Care Team Providers Care Junior Accountant Name Role Phone Sonya López MD Primary Care Provider Chance Miller MD Unavailable Gabo Long MD Primary Care Provider [phone] Ashwini Herrera DO Primary Care Provider [phone] Reason for Visit * Reason Comments Medication Refill Encounter Details Date Type Department Care Team (Late st Contact Info) Description 02/12/2023 Refill [facility] - Family Medicine [facility] #2 [place] [address] Sonya López [place] [address] [place] [address] Medication Refill Social History Tobacco Use Types [...] Sex Assigned at Female 09/26/2023 10:23 AM EMAIL SPECIALIST Legal Sex Female 11:44 PM CDT Gender Identity Female 09/26/2023 10:23 AM EMAIL SPECIALIST Sexual Orientation Straight 09/26/2023 10 :23 AM EMAIL SPECIALIST documented as of this encounter Miscellaneous Notes [...] [facility] - Family Medicine - [place] [address]2 [place] [address] Ashwini Herrera, DO 2 [facility]. [address] [place] [address] documented as of this encounter Visit Diagnoses [...] documented as of this encounter Care Teams Junior Accountant Relationship Specialty Start Date End Date Sonya López MD PCP - General Family Medicine 02/26/18 07/30/23 Gabo Long MD #2 [facility] [address] [place] [address] PCP - General Family Medicine 12/10/23 01/23/24 Ashwini Herrera DO 2 [facility] [address] [place] [address] PCP - General Family Medicine 01/24/24 Chance Miller MD #2 [facility] [address] [place] [address] Consulting Physician Colon and Rectal Surgery 04/13/23 documented as of this encounter
--- OUTSIDE RECORDS SUMMARY | 2025-05-11 09:18 | XMS_ITS | Encounter Summary ---
Author Organization [facility] Address [address] [facility] [place] [address] Phone Care Team Providers Care Pretzel Twisting Machine Operator Name Role Phone Chance Miller MD Unavailable Gabo Long MD Primary Care Provider [phone] Ashwini Herrera DO Primary Care Provider [phone] Reason for Visit * Reason Comments Medication Refill Encounter Details Date Type Department Care Team (Late st Contact Info) Description 01/15/2024 Refill [facility] Family Medicine [facility] #2 [place] [address] Candelario Montelongo MD #[address] [address] Medication Refill Social History Tobacco Use Types [...] Sex Assigned at Female 09/26/2023 10:23 AM JIRA DEVELOPER Legal Sex Female 11:44 PM CDT Gender Identity Female 09/26/2023 10:23 AM JIRA DEVELOPER Sexual Orientation Straight 09/26/2023 10 :23 AM JIRA DEVELOPER documented as of this encounter Miscellaneous Notes [...] Provider Dept 01/24/24 Appointment Ashwini Herrera DO [facility] [place] Showing future appointments within next 90 days and meeting all other requirements documented in this encounter Plan of Treatment Upcoming Encounters Date Type Department Care Team (Late st Contact Info) Description 12/07/2025 10:00 AM CDT Office Visit [facility] - Family [facility] #2 [place] [address] Ashwini Herrera DO 2 [facility] [place] [address] [address] documented as of this encounter Visit Diagnoses Not on filedocumented in this encounter Additional Health Concerns Assessment Noted Time PHQ-9 Depression Total Score: 0 03/12/20 23 12:00 PM CDT documented as of this encounter Care Teams Pretzel Twisting Machine Operator Relationship Specialty Start Date End Date Gabo Long MD #[address] [address] PCP - General Family Medicine 12/10/23 01/23/24 Ashwini Herrera DO 2 [facility] [place] [address] [address] PCP - General Family Medicine 01/24/24 Chance Miller MD #[address] [address] Consulting Physician Colon and Rectal Surgery 04/13/23 documented as of this encounter
--- OUTSIDE RECORDS SUMMARY | 2025-05-11 09:18 | XMS_ITS | Encounter Summary ---
Author Organization [facility] Address [address] [facility] [place] [address] Phone Care Team Providers Care Publishing Manager Name Role Phone Chance Miller MD Unavailable Gabo Long MD Primary Care Provider [phone] Ashwini Herrera DO Primary Care Provider Reason for Visit * Reason Comments Medication Refill Encounter Details Date Type Department Care Team (Late st Contact Info) Description 11/25/2023 Refill [facility] Family Medicine [facility] #2 [place] [address] Sonya López [place] [address] [place] [address] Medication Refill Social History Tobacco Use Types [...] Sex Assigned at Female 09/26/2023 10:23 AM AUTO DETAILER Legal Sex Female 11:44 PM CDT Gender Identity Female 09/26/2023 10:23 AM AUTO DETAILER Sexual Orientation Straight 09/26/2023 10 :23 AM AUTO DETAILER documented as of this encounter Miscellaneous Notes * Telephone Encounter - Janki Luna RN - 11/27/2023 8:57 AM CDT Sonya patient - has upcoming transfer of care with Dr Long in December. * Telephone Encounter - Janki Luna RN - 11/27/2023 8:57 AM CDT [facility] Medication Refill Standing Order [...] Provider Dept 01/24/24 Appointment Gabo Long MD [facility] [place] [place] Showing future appointments within next 90 [...] Office Visit [facility] Family [facility] #2 [place] [address] Ashwini Herrera DO 2 [facility] [address] [place] [address] documented as of this encounter Visit Diagnoses Diagnosis Dyslipidemia Other and unspecified hyperlipidemia documented in this encounter Additional Health Concerns Assessment Noted Time PHQ-9 Depression Total Score: 0 03/12/20 23 12:00 PM CDT documented as of this encounter Care Teams Publishing Manager Relationship Specialty Start Date End Date Gabo Long MD #[address] [address] PCP - General Family Medicine 12/10/23 01/23/24 Ashwini Herrera DO 2 [facility] [address] [place] [address] PCP - General Family Medicine 01/24/24 Chance Miller MD #[address] [address] Consulting Physician Colon and Rectal Surgery 04/13/23 documented as of this encounter
--- OUTSIDE RECORDS SUMMARY | 2025-05-11 09:18 | XMS_ITS | Encounter Summary ---
Author Organization [facility] Address [address] [place] [address] [facility] [place] [address] Phone Care Team Providers Care Telephone Order Clerk Room Service Name Role Phone Chance Miller MD Unavailable Gabo Long MD Primary Care Provider [phone] Ashwini Herrera DO Primary Care Provider Reason for Visit * Reason Comments Medication Refill Encounter Details Date Type Department Care Team (Late st Contact Info) Description 12/10/2023 Refill [facility] Family Medicine [facility] #2 [place] [address] Sonya López [place] [address] [place] [address] Medication Refill Social History Tobacco Use Types [...] Sex Assigned at Female 09/26/2023 10:23 AM PROCUREMENT SERVICES MANAGER Legal Sex Female 11:44 PM CDT Gender Identity Female 09/26/2023 10:23 AM PROCUREMENT SERVICES MANAGER Sexual Orientation Straight 09/26/2023 10 :23 AM PROCUREMENT SERVICES MANAGER documented as of this encounter Miscellaneous Notes * Telephone Encounter - Janki Luna RN - 12/11/2023 10:43 AM CDT Has NOT seen Dr Long - [facility] 01/24/24- Sonya patient * Telephone Encounter - Janki Luna RN - 12/11/2023 10:42 AM CDT Medication(s) [facility] Medication Refill Standing Order for [...] Dept 07/16/23 Office Visit Sonya López MD [facility] [place] Showing recent visits within past 182 days and meeting all other requirements Future Appointments Date Type Provider Dept 01/24/24 Appointment Gabo Long MD [facility] [place] Showing future appointments within next 90 [...] Description 12/07/2025 10:00 AM CDT Office Visit [facility] - Family Medicine - [place] [address]2 [place] [address] Ashwini Herrera DO 2 [facility] [address] [place] [address] documented as of this encounter Visit Diagnoses Not on filedocumented in this encounter Additional Health Concerns Assessment Noted Time PHQ-9 Depression Total Score: 0 03/12/20 12:00 PM CDT documented as of this encounter Care Teams Telephone Order Clerk Room Service Relationship Specialty Start Date End Date Gabo Long MD #[address] [address] PCP - General Family Medicine 12/10/23 01/23/24 Ashwini Herrera DO [address] [address] PCP - General Family Medicine 01/24/24 Chance Miller MD #[address] [address] Consulting Physician Colon and Rectal Surgery 04/13/23 documented as of this encounter
[2025-05-11 10:22] LABS: Hematocrit 39.6 % (37.0-47.0); Hemoglobin 12.9 g/dL (12.0-15.0); Immature Granulocyte Percent A 0.3 % (0-0.5); Lymphocytes Absolute Auto 1.40 K/mm3 (0.9-3.2); Mean Corpuscular HGB Conc 32.6 g/dl (32-36); Mean Corpuscular Hemoglobin 30.1 pg (26-34); Mean Corpuscular Volume 92.5 fl (80-100); Nucleated Red Blood Cells Absolute Auto 0.000 K/mm3 (0.0-0.012); Nucleated Red Blood Cells Perc 0.0 % (0.0-0.2); Platelet Count Result 207 k/mm3 (150-375); Red Blood Count 4.28 M/mm3 (4.2-5.4); White Blood Count 5.9 K/mm3 (4.5-10.0)
[2025-05-11 10:49] LABS: Anion Gap 10 mmol/L (4-12); Blood Urea Nitrogen 20 mg/dL (7-17); Calcium 9.6 mg/dL (8.4-10.2); Carbon Dioxide 23 mmol/L (22-30); Chloride 105 mmol/L (98-107); Estimated Glomerular Filt Rate > 60; Glucose 159 mg/dL (65-110); Potassium 4.4 mmol/L (3.4-5.0); Sodium 138 mmol/L (137-145)
[2025-05-11 11:33] LABS: MRSA (PCR) NOT DETECTED (NOT DETECTE)
== END 2025-05-11 08:44 | disposition home or self-care (01) ==
LOC: ANHSURGERY 08:46
PROVIDERS: Anesthesiology; PCP Student in an Organized Health Care Education/Training Program; Visit Provider Orthopaedic Surgery
DX: M17.12 Unilateral primary osteoarthritis, left knee (principal); E11.9 Type 2 diabetes mellitus without complications; Z01.818 Encounter for other preprocedural examination
CPT/HCPCS: 36415; 80048; 80307; 85025; 87641

== ENCOUNTER 2025-06-02 01:02 | Day surgery (SDC) | payer MEDICARE, SELFPAY ==
[2025-05-11 08:53] VITALS: BMI 36.7
--- NOTE | 2025-05-11 08:55 | PC.NURSE ---
Report to the Outpatient Waiting Room, entrance under the green pavilion located off [facility], at time __8:30 AM on date _06/02/25 . Planned Procedure Time: __10:30AM .? Time changes happen often and if your time is changed the preop area will call you the afternoon before. - You and your visitor will be asked to self-screen and do not enter if you have any COVID symptoms. Please call surgeon if you need to reschedule. - A mask is optional within the hospital at this time. Patients may have clear liquids (water, carbonated beverages, clear teas, apple juice) until 3 hours prior to surgery(7:30 AM) with a maximum of 20 ounces. - No food from midnight until time of surgery and no smoking, or chewing tobacco (or any form of nicotine). No chewing gum, candy or mints. Take only the following medications with a SIP of water on the morning of surgery: LEVOTHYROXINE,GABAPENTIN, DO NOT STOP ANY OF YOUR OTHER PRESCRIPTION MEDICATIONS PRIOR TO SURGERY EXCEPT THE FOLLOWING Hold all vitamins and supplements for 3 days per anesthesiologist.LAST DOSE05/29/25 Medications to discontinue per physician HOLD ASPIRIN 7 DAYS PRE OP PER DR BERNARD LAST DOSE 05/25/25 ____XARELTO PER DR BERNARD Please no make-up, nail divehi, hairspray, perfume, deodorant, or body powder the day of surgery.? No jewelry (including any body piercings) or valuables the day of surgery, leave them at home.? Please take a shower or bath the night before, or the morning of, surgery with an antibacterial soap.? Wear comfortable, loose fitting clothing.? Children are encouraged to wear pajamas. - Jewelry must be removed prior to entering the operating room.? Rings and piercings that are not removed may be cut off. - The hospital will not accept responsibility for valuables.? - Please leave all valuables, including medications, at home the day of surgery. If you are going home after surgery, a licensed livery car driver must drive you home.? - NO public transportation without another adult if you receive anesthesia. - We recommend that an adult stay with you for 24 hours following discharge. - We also recommend that you do not drive, make important decision, drink alcoholic beverages, or take any drugs that were not prescribed by your health care provider for at least 24 hours after your discharge time. Follow any additional instructions given to you from your surgeon. VERBAL AND WRITTEN instructions given to _PATIENT AND SPOUSE JIM and asked if any additional questions and then verbalized understanding. Patient advised to call surgeon office or pre surgery nurse liaison [phone] if any additional questions.
[2025-05-11 09:59] VITALS: BP 159/80; PULSE 60; RESP 18; TEMP 36.8; O2SAT 97
[2025-06-02] VITALS (11 sets, daily range): BP systolic 131–170; BP diastolic 60–79; PULSE 59–73; RESP 12–18; TEMP 36.1–36.8; O2SAT 95–100
--- NOTE | ~2025-06-02 | XR_ITS ---
EXAMINATION: [id number], 06/02/2025 12:30 CDT HISTORY: POST-OP LEFT CUSTOM TKA COMPARISON: No comparisons available. Findings: No acute fracture or malalignment. Prosthesis intact Soft tissues unremarkable. Impression: No acute fracture or malalignment. Reviewed, dictated and finalized at location P. Impression: No acute fracture or malalignment.
--- OUTSIDE RECORDS SUMMARY | 2025-06-02 01:04 | XMS_ITS | Encounter Summary ---
Author Organization [facility] Address [address] [address] [facility] [place] [address] Phone Care Team Providers Care Front Office Administrator Name Role Phone Sonya López MD Primary Care Provider Chance Miller MD Unavailable Gabo Long MD Primary Care Provider [phone] Ashwini Herrera DO Primary Care Provider [phone] Reason for Visit * Reason Comments Medication Refill Encounter Details Date Type Department Care Team (Late st Contact Info) Description 01/15/2023 Refill [facility] - Family Medicine [facility] #2 [place] [address] Sonya López [place] [address] [place] [address] Medication Refill Social History Tobacco Use Types [...] Sex Assigned at Female 09/26/2023 10:23 AM LPTA Legal Sex Female 11:44 PM CDT Gender Identity Female 09/26/2023 10:23 AM LPTA Sexual Orientation Straight 09/26/2023 10 :23 AM LPTA documented as of this encounter Miscellaneous Notes [...] Description 12/07/2025 10:00 AM CDT Office Visit [facility] - Family Medicine - [place] #2 [place] [address] Ashwini Herrera DO 2 [facility] [place] [facility] [address] [place] [address] documented as of this encounter Visit Diagnoses [...] documented as of this encounter Care Teams Front Office Administrator Relationship Specialty Start Date End Date Sonya López MD PCP - General Family Medicine 02/26/18 07/30/23 Gabo Long MD #[address] [address] PCP - General Family Medicine 12/10/23 01/23/24 Ashwini Herrera DO 2 [facility] [address] [address] [address] PCP - General Family Medicine 01/24/24 Chance Miller MD #[address] [address] Consulting Physician Colon and Rectal Surgery 04/13/23 documented as of this encounter
--- OUTSIDE RECORDS SUMMARY | 2025-06-02 01:04 | XMS_ITS | Encounter Summary ---
Author Organization [facility] Address [address] [place] [address] [facility] [place] [address] Phone Care Team Providers Care Bank Analyst Name Role Phone Chance Miller MD Unavailable Ashwini Herrera DO Primary Care Provider [phone] Reason for Visit * Reason Comments Medication Refill Encounter Details Date Type Department Care Team (Late st Contact Info) Description 06/19/2024 Refill [facility] - Family Medicine [facility] #2 [place] [address] Alison Keane APRN, STRANDING SUPERVISOR #[address] [address] Medication Refill Social History Tobacco [...] Sex Assigned at Female 09/26/2023 10:23 AM PUBLISHING EDITOR Legal Sex Female 11:44 PM CDT Gender Identity Female 09/26/2023 10:23 AM PUBLISHING EDITOR Sexual Orientation Straight 09/26/2023 10 :23 AM PUBLISHING EDITOR documented as of this encounter Miscellaneous Notes * Telephone Encounter - Janki Luna RN - 06/20/2024 3:31 PM CDT Images from the original note were not included. Atorvastatin Calcium Dispensed Days Supply Quantity Provider Pharmacy ATORVASTATIN CALCIUM 20 MG TABS 05/17/2024 90 90 Tablet Alison Keane APRN, [place] [facility] [employer] ATORVASTATIN CALCIUM 20 MG TABS 02/22/2024 90 90 Tablet Alison Keane APRN, [place] [facility] ... documented in this encounter Plan of Treatment Upcoming Encounters Date Type Department Care Team (Late st Contact Info) Description 12/07/2025 10:00 AM CDT Office Visit [facility] - Family Medicine - [place] #2 [place] [address] Ashwini Herrera DO 2 [facility] [address] [place] [address] documented as of this encounter Visit Diagnoses Diagnosis Dyslipidemia Other and unspecified hyperlipidemia documented in this encounter Additional Health Concerns Assessment Noted Time PHQ-9 Depression Total Score: 0 03/12/20 23 12:00 PM CDT documented as of this encounter Care Teams Bank Analyst Relationship Specialty Start Date End Date Ashwini Herrera DO 2 [facility] [place] [facility] [address] [place] [address] PCP - General Family Medicine 01/24/24 Chance Miller MD #2 [facility] [address] [place] [address] Consulting Physician Colon and Rectal Surgery 04/13/23 documented as of this encounter
--- OUTSIDE RECORDS SUMMARY | 2025-06-02 01:04 | XMS_ITS | Encounter Summary ---
Author Organization [facility] Address [address] [place] [address] [facility] [place] [address] Phone Care Team Providers Care Caterpillar Mechanic Name Role Phone Sonya López MD Primary Care Provider Chance Miller MD Unavailable Gabo Long MD Primary Care Provider [phone] Ashwini Herrera DO Primary Care Provider [phone] Reason for Visit * Reason Comments Medication Refill Encounter Details Date Type Department Care Team (Late st Contact Info) Description 02/12/2023 Refill [facility] Medical Group - Family Medicine [facility] #2 [place] [address] Sonya López [place] [address] [place] [address] Medication Refill Social History Tobacco Use Types [...] Sex Assigned at Female 09/26/2023 10:23 AM BILLING SPECIALIST Legal Sex Female 11:44 PM CDT Gender Identity Female 09/26/2023 10:23 AM BILLING SPECIALIST Sexual Orientation Straight 09/26/2023 10 :23 AM BILLING SPECIALIST documented as of this encounter Miscellaneous [...] [facility] - Family Medicine - [place] #2 [place] [address] Ashwini Herrera, DO 2 [facility]. [address] [place] [address] documented as of this encounter Visit Diagnoses [...] documented as of this encounter Care Teams Caterpillar Mechanic Relationship Specialty Start Date End Date Sonya López MD PCP - General Family Medicine 02/26/18 07/30/23 Gabo Long MD #2 [facility] [address] [place] [address] PCP - General Family Medicine 12/10/23 01/23/24 Ashwini Herrera DO 2 [facility] [address] [place] [address] PCP - General Family Medicine 01/24/24 Chance Miller MD #2 [facility] [address] [place] [address] Consulting Physician Colon and Rectal Surgery 04/13/23 documented as of this encounter
--- OUTSIDE RECORDS SUMMARY | 2025-06-02 01:05 | XMS_ITS | Encounter Summary ---
Author Organization [facility] Address [address] [place] [address] [facility] [place] [address] Phone Care Team Providers Care Candy Counter Clerk Name Role Phone Sonya López MD Primary Care Provider Chance Miller MD Unavailable Gabo oLng MD Primary Care Provider [phone] Ashwini Herrera DO Primary Care Provider [phone] Reason for Visit * Reason Comments Medication Refill Encounter Details Date Type Department Care Team (Late st Contact Info) Description 07/07/2020 Refill [facility] Medical Group - Family Medicine [facility] #2 [place] [address] Sonya López [place] [address] [place] [id number] Medication Refill Social History Tobacco Use Types [...] Sex Assigned at Female 09/26/2023 10:23 AM LANDSCAPE DRAFTER Legal Sex Female 11:44 PM CDT Gender Identity Female 09/26/2023 10:23 AM LANDSCAPE DRAFTER Sexual Orientation Straight 09/26/2023 10 :23 AM LANDSCAPE DRAFTER documented as of this encounter Plan of Treatment Upcoming Encounters Date Type Department Care Team (Late st Contact Info) Description 12/07/2025 10:00 AM CDT Office Visit [facility] Family [facility] #2 [place] [address] Ashwini Herrera DO 2 [facility] [place] [address] [address] documented as of this encounter Visit Diagnoses [...] documented as of this encounter Care Teams Candy Counter Clerk Relationship Specialty Start Date End Date Sonya López MD PCP - General Family Medicine 02/26/18 07/30/23 Gabo Long MD #[address] [address] PCP - General Family Medicine 12/10/23 01/23/24 Ashwini Herrera DO 2 [facility] [place] [address] [address] PCP - General Family Medicine 01/24/24 Chance Miller MD #[address] [address] Consulting Physician Colon and Rectal Surgery 04/13/23 documented as of this encounter
--- OUTSIDE RECORDS SUMMARY | 2025-06-02 01:05 | XMS_ITS | Encounter Summary ---
Author Organization [facility] Address [address] [place] [address] [facility] [place] [address] Phone Care Team Providers Care School Cafeteria Head Cook Name Role Phone Chance Miller MD Unavailable Ashwini Herrera DO Primary Care Provider [phone] Reason for Visit * Reason Comments Medication Refill Encounter Details Date Type Department Care Team (Late st Contact Info) Description 02/05/2024 Refill [facility] - Family Medicine [facility] #2 [place] [address] Alison Keane APRN, PHP ARCHITECT #[address] [address] Medication Refill Social History Tobacco [...] Sex Assigned at Female 09/26/2023 10:23 AM DISHWASHER PREPARER Legal Sex Female 11:44 PM CDT Gender Identity Female 09/26/2023 10:23 AM DISHWASHER PREPARER Sexual Orientation Straight 09/26/2023 10 :23 AM DISHWASHER PREPARER documented as of this encounter Miscellaneous Notes * Telephone Encounter - Janki Luna RN - 02/06/2024 8:39 AM CDT Medication(s) refilled and signed per [facility] Chronic Medication Refill Standing Order for [...] Dept 01/24/24 Office Visit Ashwini Herrera DO [facility] [place] 07/16/23 Office Visit Sonya López MD [facility] [place] 04/12/23 Office Visit Alison Keane APRN, PHP ARCHITECT [facility] 03/12/23 Office Visit Sonya L[facility] MD [facility] Showing recent visits within past 365 days [...] Office Visit [facility]2 [place] [address] Ashwini Herrera DO 2 [facility] [place] [facility] [address] [place] [address] documented as of this encounter Visit Diagnoses Diagnosis Dyslipidemia Other and unspecified hyperlipidemia documented in this encounter Additional Health Concerns Assessment Noted Time PHQ-9 Depression Total Score: 0 03/12/20 23 12:00 PM CDT documented as of this encounter Care Teams School Cafeteria Head Cook Relationship Specialty Start Date End Date Ashwini Herrera DO 2 [facility] [place] [facility] [address] [place] [address] PCP - General Family Medicine 01/24/24 Chance Miller MD #[address] [address] Consulting Physician Colon and Rectal Surgery 04/13/23 documented as of this encounter
--- OUTSIDE RECORDS SUMMARY | 2025-06-02 01:05 | XMS_ITS | Encounter Summary ---
Author Organization [facility] Address [address] [facility] [place] [address] Phone Care Team Providers Care Metal Smelter Name Role Phone Chance Miller MD Unavailable Gabo Long MD Primary Care Provider [phone] Ashwini Herrera DO Primary Care Provider [phone] Reason for Visit * Reason Comments Medication Refill Encounter Details Date Type Department Care Team (Late st Contact Info) Description 01/15/2024 Refill [facility] Family Medicine [facility] #2 [place] [address] Candelario Montelongo MD #[address] [id number] Medication Refill Social History Tobacco Use Types [...] Sex Assigned at Female 09/26/2023 10:23 AM LATHER APPRENTICE Legal Sex Female 11:44 PM CDT Gender Identity Female 09/26/2023 10:23 AM LATHER APPRENTICE Sexual Orientation Straight 09/26/2023 10 :23 AM LATHER APPRENTICE documented as of this encounter Miscellaneous Notes [...] Provider Dept 01/24/24 Appointment Ashwini Herrera DO [facility] [place] Showing future appointments within next 90 days and meeting all other requirements documented in this encounter Plan of Treatment Upcoming Encounters Date Type Department Care Team (Late st Contact Info) Description 12/07/2025 10:00 AM CDT Office Visit [facility] Medical Group - Family [facility] #2 [place] [address] Ashwini Herrera DO 2 [facility] [place] [address] [address] documented as of this encounter Visit Diagnoses Not on filedocumented in this encounter Additional Health Concerns Assessment Noted Time PHQ-9 Depression Total Score: 0 03/12/20 23 12:00 PM CDT documented as of this encounter Care Teams Metal Smelter Relationship Specialty Start Date End Date Gabo Long MD #[address] [address] PCP - General Family Medicine 12/10/23 01/23/24 Ashwini Herrera DO 2 [facility] [place] [address] [address] PCP - General Family Medicine 01/24/24 Chance Miller MD #[address] [address] Consulting Physician Colon and Rectal Surgery 04/13/23 documented as of this encounter
--- OUTSIDE RECORDS SUMMARY | 2025-06-02 01:05 | XMS_ITS | Encounter Summary ---
Author Organization [facility] Healthcare Address [address] [place] [address] Care Team Providers Care Ticket Seller Name Role Phone Ashwini Herrera DO Primary Care Provider [phone] Encounter Details Date Type Department Care Team (Late st Contact Info) Description 05/25/2025 Results Follow-Up [facility] Medical [facility] at [address] [address] Manuel Tyson NP [address] [place] [address] [address] [place] [address] Urine culture Urine, clean voided Social History Tobacco Use Types Packs/Day Years [...] points, staff should administer the PHQ-9) 0 05/20/2025 Personal Safety Answer Date Recorded Have you ever been in or are you currently in a harmful physical or emotional relationship or is someone making you feel afraid or unsafe? Denies 04/30/2024 Comments No Sex and Gender Information Value Date Recorded Sex Assigned at Not on file Legal Sex Female 1:54 AM MANAGER NEONATAL Gender Identity Female 02/11/2021 9:48 AM CDT Sexual Orientation Not on file documented as of this encounter Plan of Treatment Not on file documented as of this encounter Visit Diagnoses Not on filedocumented in this encounter Care Teams Ticket Seller Relationship Specialty Start Date End Date Ashwini Herrera DO PCP - General Family Medicine 04/17/24 documented as of this encounter
--- OUTSIDE RECORDS SUMMARY | 2025-06-02 01:05 | XMS_ITS | Encounter Summary ---
Author Organization [facility] Address [address] [facility] [place] [address] Phone Care Team Providers Care Sas Etl Developer Name Role Phone Chance Miller MD Unavailable Gabo Long MD Primary Care Provider [phone] Ashwini Herrera DO Primary Care Provider [phone] Reason for Visit * Reason Comments Medication Refill Encounter Details Date Type Department Care Team (Late st Contact Info) Description 12/10/2023 Refill [facility] [address] [place] [address] Sonya López [place] [address] [place] [address] Medication Refill Social History Tobacco Use Types [...] Sex Assigned at Female 09/26/2023 10:23 AM COMPLETION SUPERVISOR Legal Sex Female 11:44 PM CDT Gender Identity Female 09/26/2023 10:23 AM COMPLETION SUPERVISOR Sexual Orientation Straight 09/26/2023 10 :23 AM COMPLETION SUPERVISOR documented as of this encounter Miscellaneous Notes * Telephone Encounter - Janki Luna RN - 12/11/2023 10:43 AM CDT Has NOT seen Dr Long - [facility] 01/24/24- Sonya patient * Telephone Encounter - Janki Luna RN - 12/11/2023 10:42 AM CDT Medication(s) refilled and signed per [facility] Chronic Medication Refill Standing Order for [...] Dept 07/16/23 Office Visit Sonya López MD [facility] Showing recent visits within past 182 days and meeting all other requirements Future Appointments Date Type Provider Dept 01/24/24 Appointment Gabo Long MD [facility] Showing future appointments within next 90 [...] 12/07/2025 10:00 AM CDT Office Visit [facility] - Family Medicine - [address] [address] [place] [id number] Ashwini Herrera DO 2 [facility] [address] [place] [address] documented as of this encounter Visit Diagnoses Not on filedocumented in this encounter Additional Health Concerns Assessment Noted Time PHQ-9 Depression Total Score: 0 03/12/20 12:00 PM CDT documented as of this encounter Care Teams Sas Etl Developer Relationship Specialty Start Date End Date Gabo Long MD #[address] [address] PCP - General Family Medicine 12/10/23 01/23/24 Ashwini Herrera DO [address] [address] PCP - General Family Medicine 01/24/24 Chance Miller MD #[address] [address] Consulting Physician Colon and Rectal Surgery 04/13/23 documented as of this encounter
--- OUTSIDE RECORDS SUMMARY | 2025-06-02 01:05 | XMS_ITS | Encounter Summary ---
Author Organization [facility] Address [address] [facility] [place] [address] Phone Care Team Providers Care Loading Manager Name Role Phone Chance Miller MD Unavailable Gabo Long MD Primary Care Provider [phone] Ashwini Herrera DO Primary Care Provider [phone] Reason for Visit * Reason Comments Medication Refill Encounter Details Date Type Department Care Team (Late st Contact Info) Description 11/25/2023 Refill [facility] - Family Medicine [facility] [place] [address] [place] [address] Sonya López [place] [address] [place] [address] Medication Refill Social History Tobacco Use Types [...] Sex Assigned at Female 09/26/2023 10:23 AM FINANCIAL SERVICES AUDITOR Legal Sex Female 11:44 PM CDT Gender Identity Female 09/26/2023 10:23 AM FINANCIAL SERVICES AUDITOR Sexual Orientation Straight 09/26/2023 10 :23 AM FINANCIAL SERVICES AUDITOR documented as of this encounter Miscellaneous [...] Provider Dept 01/24/24 Appointment Gabo Long MD [facility] Showing future appointments within next 90 [...] Office Visit [facility] - Family [facility] [address] [place] [address] Ashwini Herrera DO 2 [facility] [address] [place] [address] documented as of this encounter Visit Diagnoses Diagnosis Dyslipidemia Other and unspecified hyperlipidemia documented in this encounter Additional Health Concerns Assessment Noted Time PHQ-9 Depression Total Score: 0 03/12/20 23 12:00 PM CDT documented as of this encounter Care Teams Loading Manager Relationship Specialty Start Date End Date Gabo Long MD #[address] [address] PCP - General Family Medicine 12/10/23 01/23/24 Ashwini Herrera DO 2 [facility] [address] [place] [address] PCP - General Family Medicine 01/24/24 Chance Miller MD [address] [address] Consulting Physician Colon and Rectal Surgery 04/13/23 documented as of this encounter
--- OUTSIDE RECORDS SUMMARY | 2025-06-02 01:05 | XMS_ITS | Encounter Summary ---
Author Organization [facility] Address [address] [facility] [place] [address] Phone Care Team Providers Care Icu Specialist Name Role Phone Sonya López MD Primary Care Provider Chance Miller MD Unavailable Gabo Long MD Primary Care Provider [phone] Ashwini Herrera DO Primary Care Provider [phone] Encounter Details Date Type Department Care Team (Late st Contact Info) Description 04/26/2023 Transcribe Orders [facility] Pre[facility] [address] [place] [address] Chance Miller MD [address] [id number] Preop testing (Primary Dx); Oropharyngeal dysphagia Social [...] Sex Assigned at Female 09/26/2023 10:23 AM MANAGER SHIPPING Legal Sex Female 11:44 PM CDT Gender Identity Female 09/26/2023 10:23 AM MANAGER SHIPPING Sexual Orientation Straight 09/26/2023 10 :23 AM MANAGER SHIPPING COVID-19 Exposure Response Date Recorded In the last 10 days, have yo u been in contact with someone who was confirmed or suspected to have Coronavirus/COVID-19? No / Unsure 04/23/2023 11:00 AM CDT documented as of this encounter Plan of Treatment Upcoming Encounters Date Type Department Care Team (Late st Contact Info) Description 12/07/2025 10:00 AM CDT Office Visit [facility] Medical Group - Family Medicine - [place] [address] [place] [address] Ashwini Herrera, DO 2 [facility], [address] [id number] documented as of this encounter Results * SARS-COV-2 BY MOLECULAR (05/01/2023 10:19 AM CDT) SARSCOV2 NOT DETECTED (Referenc e Range for this test is Not Detected) [facility] ID NOW 05/01/2023 10:53 AM CDT [facility] Comment:This test was perfor med by a MOLECULAR, NON-PCR method Other NASOPHARYNGEAL STRUCTURE / Unknown Non-Phlebotomy Collection / Unknown 05/01/2023 10:19 AM CDT 05/01/2023 10:36 AM CDT Narrative [facility] - 05/01/2023 10:53 AM CDT [...] information for Clinicians can be found at: https://www.fda.gov/media/671025/download Additional information for Patients can be found at: https://www.fda.gov/media/482984/download Chance Miller MD MICROBIOLOGY - GENERAL ORDERABLE S Final Result [facility] [address] [place] [address] documented in this encounter Visit Diagnoses Diagnosis Preop testing- Primary Preoperative examination, unspecified Oropharyngeal dysphagia Dysphagia, oropharyngeal phase documented in this encounter Additional Health Concerns Infection Onset Date Last Indicated Resolved Time COVID - 19 Confirmed 04/23/2023 04/23/2023 023 12:16 AM CDT Assessment Noted Time PHQ-9 Depression Total Score: 0 03/12/20 23 12:00 PM CDT documented as of this encounter Care Teams Icu Specialist Relationship Specialty Start Date End Date Sonya López MD PCP - General Family Medicine 02/26/18 07/30/23 Gabo Long MD [address] [facility] [address] [place] [address] PCP - General Family Medicine 12/10/23 01/23/24 Ashwini Herrera DO 2 [facility] [facility] [address] [place] [address] PCP - General Family Medicine 01/24/24 Chance Miller MD #2 [facility] [address] [place] [address] Consulting Physician Colon and Rectal Surgery 04/13/23 documented as of this encounter
--- OUTSIDE RECORDS SUMMARY | 2025-06-02 01:05 | XMS_ITS | Clinical Summary ---
Author Organization [facility] Address [address] [place] [address] Care Team Providers Care Wireless Network Engineer Name Role Phone Sonya López MD Primary Care Provider [phone] Social History Tobacco Use Types Packs/Day Years Used Date Smoking Tobacco: Never Assessed Comments Unknown Sex and Gender Information Value Date Recorded Sex Assigned at Not on file Legal Sex Female 4:48 PM CDT Gender Identity Not on file Sexual Orientation Not on file Plan of Treatment Health Maintenance Due Date Last Done Comments Hepatitis C 1963 DTaP, Tdap and Td Vaccines (1 - Tdap) 1964 Annual Medicare Wellness Visit 2011 Dexa Scan (General) 2011 RSV Immunization or 60+ Years (1 - 1-dose 75+ series) 2021 COVID-19 Vaccine ( season) 2025 11/04/2020, 10/13/2020 Influenza Adult (#1) 2025 07/25/2022, 05/17/2020, 06/18/2018, Additional history exists Zoster Vaccines Completed 05/26/2019, 12/27, 05/31/2015 Pneumococcal Vaccine: 50+ Years Completed 02/10/2020, 02/25/2018, 11/25/2005 Meningococcal B Vaccine Aged Out No l onger eligible based on patient's age to complete this topic Meningococcal Vaccine Aged Out No shirley alejandro eligible based on patient's age to complete this topic RSV Immunizations Under 20 Months Aged Out No longer eligible based on patient's age to complete this topic Insurance [facility] MEDIC[employer] Care Teams Wireless Network Engineer Relationship Specialty Start Date End Date Sonya López MD 2 [place] [address] PCP - General FAMILY PRACTICE 06/05/23
--- OUTSIDE RECORDS SUMMARY | 2025-06-02 01:05 | XMS_ITS | Encounter Summary ---
Author Organization [facility] Address [address] [facility] [place] [address] Phone Care Team Providers Care Forensic Materials Engineer Name Role Phone Chance Miller MD Unavailable Gabo Long MD Primary Care Provider [phone] Ashwini Herrera DO Primary Care Provider [phone] Reason for Visit * Reason Comments Medication Refill Encounter Details Date Type Department Care Team (Late st Contact Info) Description 08/24/2023 Refill [facility] Family [facility] [address] [place] [address] Sonya López [place] [address] [place] [address] Medication Refill Social History Tobacco Use Types [...] Assigned at Female 09/26/2023 10:23 AM SERVICE ORDER DISPATCHER CHIEF Legal Sex Female 11:44 PM CDT Gender Identity Female 09/26/2023 10:23 AM SERVICE ORDER DISPATCHER CHIEF Sexual Orientation Straight 09/26/2023 10 :23 AM SERVICE ORDER DISPATCHER CHIEF documented as of this encounter Miscellaneous Notes * Telephone Encounter - Janki Luna RN - 08/24/2023 11:05 AM CST Name from pharmacy: glipiZIDE 5 MG Oral Tablet Will file in chart as: glipiZIDE (GLUCOTROL) 5 MG Tablet The original prescription was discontinued on 07/16/2023 by Sonya López MD for the following reason: Therapy completed. ICE ORDER DISPATCHER CHIEF documented in this encounter Plan of Treatment Upcoming Encounters Date Type Department Care Team (Late st Contact Info) Description 12/07/2025 10:00 AM CDT Office Visit [facility] Family [facility] [address] [place] [address] Ashwini Herrera DO [address] [address] documented as of this encounter Visit Diagnoses Diagnosis Controlled type 2 diabetes mellitus without complication, without long-term current use of insulin documented in this encounter Additional Health Concerns Assessment Noted Time PHQ-9 Depression Total Score: 0 03/12/20 23 12:00 PM CDT documented as of this encounter Care Teams Forensic Materials Engineer Relationship Specialty Start Date End Date Gabo Long MD #[address] [address] PCP - General Family Medicine 12/10/23 01/23/24 Ashwini Herrera DO [address] [address] PCP - General Family Medicine 01/24/24 Chance Miller MD [address] [address] [address] Consulting Physician Colon and Rectal Surgery 04/13/23 documented as of this encounter
--- OUTSIDE RECORDS SUMMARY | 2025-06-02 01:05 | XMS_ITS | Encounter Summary ---
Author Organization [facility] Address [address] [facility] [place] [address] Phone Care Team Providers Care Etl Programmer Name Role Phone Cahnce Miller MD Unavailable Ashwini Herrera DO Primary Care Provider [phone] Reason for Visit * Reason Comments Medication Refill Encounter Details Date Type Department Care Team (Late st Contact Info) Description 02/12/2024 Refill [facility] - Family Medicine [facility] [address] [place] [address] Neftali Rueda APRN, SOFT SUGAR CUTTER #[address] [id number] Medication Refill Social History Tobacco Use Types [...] Sex Assigned at Female 09/26/2023 10:23 AM MSWS Legal Sex Female 11:44 PM CDT Gender Identity Female 09/26/2023 10:23 AM MSWS Sexual Orientation Straight 09/26/2023 10 :23 AM MSWS documented as of this encounter Miscellaneous Notes [...] Dept 01/24/24 Office Visit Ashwini Herrera DO [facility] Showing recent visits within past 182 days [...] Group - Family Medicine - [place] [address] [place] [address] Ashwini Herrera DO [address] [address] documented as of this encounter Visit Diagnoses Not on filedocumented in this encounter Additional Health Concerns Assessment Noted Time PHQ-9 Depression Total Score: 0 03/12/20 23 12:00 PM CDT documented as of this encounter Care Teams Etl Programmer Relationship Specialty Start Date End Date Ashwini Herrera DO 2 [address] [facility] [address] [place] [address] PCP - General Family Medicine 01/24/24 Chance Miller MD [address] [facility] [address] [place] [address] Consulting Physician Colon and Rectal Surgery 04/13/23 documented as of this encounter
--- OUTSIDE RECORDS SUMMARY | 2025-06-02 01:05 | XMS_ITS | Clinical Summary ---
Author Organization [facility] Address [address] [address] Phone Care Team Providers Care Marzipan Maker Name Role Phone Chance Miller MD Unavailable Ashwini Herrera DO Primary Care Provider [phone] Allergies Active Allergy Reactions Criticality Noted Date [...] Active ferrous sulfate 325 (65 Fe) MG TabletIndicati ons:Iron Deficiency Anemia Take 325 mg by mouth daily. Indications: Anemia From Inadequate Iron in the Body Active magnesium oxide (MAG-OX) 400 MG Tablet Take 1 Tablet by mouth 2 times daily. 30 Tablet 4 Active metoprolol Succinate (TOPROL-XL) 50 MG TABLET SR 24 HR Take 1 Tablet by mouth daily. 100 Tablet 2 4 Active atorvastatin (LIPITOR) 20 MG TabletIndicati ons:Dyslipidem ia TAKE 1 TABLET BY MOUTH ONCE DAILY [...] Active Ozempic, 1 MG/DOSE, 4 MG/3ML Solution Pen-injectorIn dications:Cont rolled type 2 diabetes mellitus without complication, without [...] times daily. 90 Capsule 3 5 Active gabapentin (NEURONTIN) 300 MG Capsule Take 1 Capsule by mouth 3 times daily. 90 Capsule 3 5 025 Discontin ued(Reord er) Active Problems Problem Noted Date Diagnosed Date Hiatal hernia 05/25/2023 Chronic atrial fibrillation 12/11/2022 Low bone mass 03/25/2019 Coronary artery disease invo lving [place] heart without angina pectoris 03/25/2019 BMI 40.0-44.9, [...] Encounters Date Type Department Care Team Description 05/28/2025 Refill [facility] [place] [address] Ashwini Herrera DO Medication Refill 03/03/2025 MyChart RX Renewal [facility] [address] [place] [address] Ashwini Herrera DO Medication Renewal Declined from Last 3 Months Immunizations Immunization Administration [...] Sex Assigned at Female 09/26/2023 10:23 AM BULK PLANT AGENT Legal Sex Female 11:44 PM CDT Gender Identity Female 09/26/2023 10:23 AM BULK PLANT AGENT Sexual Orientation Straight 09/26/2023 10 :23 AM BULK PLANT AGENT Last Filed Vital Signs Vital Sign Reading [...] Visit [facility] [address] [place] [address] Ashwini Herrera, DO 2 [facility], [address] [place] [address] Health Maintenance Due Date Last Done Comments Medicare Initial AWV [id number] 08/27/2012 Influenza Immunization (#1) 2025 10/0 03/2024, 07/16/2023, [...] Immunization Discontinued Medical Devices Implanted Type Area Textile Chemist Device Identifier Shelf Expiration Date Model / Serial / Lot Stent Coronary Jaye Xience Everolimus Eluting [id number] - [id number] Implanted:Qty: 1 on 03/20/2019 by Portia Mcginnis MD at [facility] IMPLANT [employer] 04/21/2019 [id number] / / [id number] Device Clsr 6-7fr Mynxgrip Net Solutions Architect Vasc Bln Cath Lock Syr Integrate Sealant 10ml Disp - [id number] Implanted:Qty: 1 on 03/20/2019 by Portia Mcginnis MD at [facility] IMPLANT [employer] 09/26/2020 [id number] / / [id number] Procedures Procedure Name Priority Date/Time Associated Diagnosis Comments DILATED EYE EXAM 04/02/2025 1 2:00 AM CDT XR - LOWER EXTREMITY 03/20/2025 12:00 AM CDT [facility] BONE DENSITOMETRY AXIAL SKELETON Routine 02/17/2025 2:00 PM CDT Screening for osteoporosis Unspecified menopausal and perimenopausal disorder CMP (COMPREHENSIVE METABOLIC PANEL) Routine 01/22/2025 10:50 AM CDT Screening for osteoporosis Unspecified menopausal and perimenopausal disorder Controlled type 2 diabetes mellitus without complication, without long-term current use of insulin Essential hypertension Coronary artery disease involving [place] heart without angina pectoris, unspecified vessel or lesion type Chronic atrial fibrillation (HCC) Microcytic anemia Gastroesophageal reflux disease without esophagitis B12 deficiency HEMOGLOBIN A1C W/ ESTIMATED GLUCOSE Routine 01/22/2025 10:50 AM CDT Controlled type 2 diabetes mellitus without complication, without long-term current use of insulin [facility] SCREENING BILATERAL DIGITAL W CAD W CHRISTIANO [...] SURGICAL ORDERAB LES Final Result SCAN * XR - LOWER EXTREMITY (03/20/2025 12:00 AM CDT) 03/20/2025 us Provider Scan IMG DIAGNOSTIC ORDERABLES Final Result SCAN * [facility] BONE DENSITOMETRY AXIAL SKELETON (02/17/2025 2:00 PM [...] Narrative 02/18/2025 5:25 PM CDT EXAM DESCRIPTION: [facility] BONE DENSITOMETRY AXIAL SKELETON REASON FOR STUDY: 79 y/o year old F with given history of: Screening for osteoporosis Textile Chemist/Model: [employer] (S/N [id number]) Facility LSC value of 0.028 for the [...] Candelario Garcia M.D. MF: JOHN Report ID: [id number] Reading Location: [address] Note Candelario Garcia MD - 02/18/2025 EXAM DESCRIPTION: [facility] BONE DENSITOMETRY AXIAL SKELETON REASON FOR STUDY: 79 y/o year old F with given history of: Screening for osteoporosis Textile Chemist/Model: [employer] (S/N [id number]) Facility LSC value of 0.028 for the [...] Candelario Garcia M.D. MF: JOHN Report ID: [id number] Reading Location: [place] [address] IMPRESSION: 1. Low Bone Mass. REFERENCE: Bone [...] - 6.0 % 01/22/2025 12:52 PM CDT [facility] Est Average Glucose 131.2 mg/dL 01/22/2025 12:52 PM CDT [facility] Blood Venipuncture / Unknown 01/22/2025 10:50 AM CDT 01/22/2025 10:50 AM CDT Narrative [facility] - 01/22/2025 12:52 PM CDT HEMOGLOBIN A1C: DIABETIC PATIENTS: WELL-CONTROLLED: 6.2 - 7.0 INTERMEDIATE WELL-CONTROLLED: 7.0 - 9.0 POORLY-CONTROLLED: >9.0 Specimens containing greater than 5% of Hemoglobin F may result in lower than expected % HbA1C results. us Ashwini Herrera DO CHEMISTRY ORDERABLES Final Re sult [facility] [address] [place] [address] * (ABNORMAL) CMP (COMPREHENSIVE METABOLIC PANEL) (01/22/2025 10:50 AM CDT) SODIUM 141 136 - 145 mmol/L 01/22/2025 1:07 PM CDT [facility] POTASSIUM 4.3 3.5 - 5.1 mmol/L 01/22/2025 1:07 PM CDT [facility] CHLORIDE 105 98 - 107 mmol/L 01/22/2025 1:07 PM CDT [facility] CO2, VENOUS 25 22 - 30 mmol/L 01/22/2025 1:07 PM CDT [facility] ANION GAP 15.3 <18.0 mmol/L 01/22/2025 1:07 PM [facility] GLUCOSE 130(H) 70 - 99 mg/dL 01/22/2025 1:07 PM T [facility] BUN 13 10 - 20 mg/dL 01/22/2025 1:07 PM [facility] CREATININE, BLOOD 0.91 0.60 - 1.00 mg/dL 01/22/2025 1:07 PM [facility] BUN/CREATININE RATIO 14 12 - 20 ratio 01/22/2025 1:07 PM [facility] TOTAL PROTEIN 7.4 6.0 - 8.0 g/dL 01/22/2025 1:07 PM [facility] ALBUMIN 4.4 3.5 - 5.0 g/dL 01/22/2025 1:07 PM [facility] A/G RATIO 1.5 1.0 - 2.2 01/22/2025 1:07 PM [facility] CALCIUM 10.1 8.7 - 10.5 mg/dL 01/22/2025 1:07 PM [facility] T BILI 0.8 0.2 - 1.2 mg/dL 01/22/2025 1:07 PM [facility] SGOT (AST) 32 <43 U/L 01/22/2025 1:07 PM [facility] SGPT (ALT) 22 <56 U/L 01/22/2025 1:07 PM [facility] ALKALINE PHOSPHATASE 105 40 - 150 U/L 01/22/2025 1:07 PM [facility] IS THE PATIENT REQUIRED TO BE FASTING? No 01/22/2025 1:07 PM [facility] GFR, ESTIMATED >60 >=60 01/22/2025 1:07 PM [facility] Comment: Creatinine Clearance is the preferred criteria for selecting drug dose adjustments in renally impaired patients. The GFR is provided as additional pertinent clinical information. GFR is reported in mL/min/1.73 sq m. Calculation based on the Chronic Kidney Disease Epidemiology Collaboration (CKD- EPI) equation refit without adjustment for race. GFR, EST. >60 >=60 025 1:07 PM CDT [facility] GFR, EST. NONAFRICAN 60 >=60 01/22/2025 1:07 PM CDT [facility] Blood Venipuncture / Unknown 01/22/2025 10:50 AM CDT 01/22/2025 10:50 AM CDT us Ashwini Herrera DO CHEMISTRY ORDERABLES Final Re sult [facility] [address] [place] [address] * BARBARA SCREENING BILATERAL DIGITAL W CAD [...] to exams dated: 05/30/2021, 08/03/2022, and 12/10/2023 [facility]. BREAST TISSUE:There are scattered areas of fibroglandular [...] next screening exam. Electronically signed by: David orourke/juan antoniorad:01/15/2025 17:03:17 Dust Mixer(s): RT Mann(R)(M), [facility] letter sent: Normal Exam Reading [...] to exams dated: 05/30/2021, 08/03/2022, and 12/10/2023 [facility]. BREAST TISSUE:There are scattered areas of fibroglandular [...] next screening exam. Electronically signed by: David orourke/suman:01/15/2025 17:03:17 Dust Mixer(s): RT Mann(R)(M), [facility] letter sent: Normal Exam Reading location: [place] Mammogram BI-RADS: Category 2: Benign us Ashwini Herrera DO IMG MAMMO ORDERABLES Final Re sult * COLOGUARD (04/23/2023 8:30 AM CDT) Cologuard Negative Negative [facility] Comment: NEGATIVE TEST RESULT. A negative [...] (Bryant Abraham al, N Engl J Med 2014;370(14):7229-3337) The normal value (reference range) for this assay is negative. COLOGUARD RE-SCREENING RECOMMENDATION: Periodic colorectal cancer screening is an important part of preventive healthcare for asymptomatic individuals at average risk for colorectal cancer. Following a negative Cologuard result, the [place] Cancer Society and U.S. Multi-Society Task Force screening guidelines recommend a Cologuard re-screening interval of 3 years. References: [place] [employer] Society Guideline for Colorectal Cancer Screening: https://www.cancer.org/cancer/scftu-mlnyph-nfmzfd/zjaugmgpm-pvlwhkhnr-wfmvrdh/ acs-recommendations.html.; Flip DK, Jax CR, Rusty LopezK, Colorectal Cancer Screening: Recommendations for Physicians and Patients from the U.S. Multi-Society Task Force on Colorectal Cancer Screening , Am J Gastroenterology 2017; 112:7660-3923. TEST DESCRIPTION: Composite algorithmic analysis of stool [...] (Bryant Abraham al, N Engl J Med 2014;370(14):5184-8258.) Cologuard may produce a false negative or false positive result (no colorectal cancer or precancerous polyp present at colonoscopy follow up). A negative Cologuard test result does not guarantee the absence of CRC or advanced adenoma (pre-cancer). The current Cologuard screening interval is every 3 years. ([place] Cancer Society and U.S. Multi-Society Task Force). Cologuard performance data in a 10,000 patient pivotal study using colonoscopy as the reference method can be accessed at the following location: www.AMSC/results. Additional description of the Cologuard test process, warnings and precautions can be found at www.cologuard.com. Stool 04/23/2023 8:30 AM CDT 04/24/2023 8:35 PM CDT Sonya López MD BODY FLUIDS & STOOLS ORDERA BLES Final Result [employer] [facility] [address] [place] [address], [place] [phone] [employer] [address] [place] [address] * COLONOSCOPY (06/09/2011) Flaco Irizarry DO PROCEDURE/MINOR SURGICAL ORDERAB LES Edited Result - Final from Last 3 Months or Most Recently Relevant to Health Maintenance Insurance MEDICARE C [facility] [place] [id number] Advance Directives Documents on File Type Date Recorded Patient Web Portal Developer Expl anation Power of Switch Adjuster for Health Care 05/03/2023 6:58 AM Power of Switch Adjuster fo r Health Care Care Teams Marzipan Maker Relationship Specialty Start Date End Date Ashwini Herrera DO [address] [facility] [address] [place] [address] PCP - General Family Medicine 01/24/24 Chance Miller MD [address] [facility] [address] [place] [address] Consulting Physician Colon and Rectal Surgery 04/13/23
--- OUTSIDE RECORDS SUMMARY | 2025-06-02 01:05 | XMS_ITS | Encounter Summary ---
Author Organization [facility] Address [address] [place] [place] [address] Phone Care Team Providers Care Mental Health Clinician Name Role Phone Sonya López MD Primary Care Provider Chance Miller MD Unavailable Gabo Long MD Primary Care Provider [phone] Ashwini Herrera DO Primary Care Provider [phone] Reason for Visit * Reason Comments Medication Refill Encounter Details Date Type Department Care Team (Late st Contact Info) Description 12/10/2022 Refill [facility] - Family Medicine [facility] [address] [place] [address] Sonya Ló[place] [address] [place] [address] Medication Refill Social History Tobacco Use Types [...] Sex Assigned at Female 09/26/2023 10:23 AM HEALTHCARE LIAISON Legal Sex Female 11:44 PM CDT Gender Identity Female 09/26/2023 10:23 AM HEALTHCARE LIAISON Sexual Orientation Straight 09/26/2023 10 :23 AM HEALTHCARE LIAISON COVID-19 Exposure Response Date Recorded In the [...] Office Visit [facility] [address] [place] [address] Ashwini Herrera DO 2 [facility] [address] [place] [address] documented as of this encounter Visit Diagnoses [...] documented as of this encounter Care Teams Mental Health Clinician Relationship Specialty Start Date End Date Sonya López MD PCP - General Family Medicine 02/26/18 07/30/23 Gabo Long MD #[address] [address] PCP - General Family Medicine 12/10/23 01/23/24 Ashwini Herrera DO 2 [facility] [address] [place] [address] PCP - General Family Medicine 01/24/24 Chance Miller MD [address] [place] [address] Consulting Physician Colon and Rectal Surgery 04/13/23 documented as of this encounter
--- OUTSIDE RECORDS SUMMARY | 2025-06-02 01:05 | XMS_ITS | Clinical Summary ---
Author Organization [facility] Address [address] [place] [address] Care Team Providers Care Brand Specialist Name Role Phone Ashwini Herrera DO Primary [...] 1 tablet (75 mcg total) by mouth river pilot before breakfast 90 tablet 3 5 Active [...] (03/03/2022): Added automatically from request for surgery [id number] Coronary artery disease invo lving [place] coronary artery of [place] heart without angina pectoris 01/20/2022 Persistent atrial [...] Overview (11/29/2016): Lichen sclerosus Assessment & Plan (05/20/2025 11:56 AM CDT): Healthy vaginal tissues on exam with mild hypopigmentation noted on inner labia. Clobetasol use reviewed should patient need it for a flare. She declines a need for a refill at today's appointment. Assessment & Plan (05/16/2023 4:27 PM CDT): [...] Encounters Date Type Department Care Team Description 05/25/2025 Results Follow-Up [facility] Care at [address] [address] Manuel Tyson NP Urine culture Urine, clean voided 05/20/2025 11:00 AM CDT Office Visit Julio Chaudhari [address] [place] [address] [address] [place] [address] Manuel Tyson NP Well woman exam (Primary Dx); Urge incontinence of urine; Lichen sclerosus et atrophicus; Abnormal finding on urinalysis; Encounter for screening mammogram for breast cancer 04/29/2025 11:45 AM CDT Ancillary Procedure [place] Auditor Supervisor [address] [facility] [place] [place] [address] [place] [address] Sick sinus syndrome (HCC); Paroxysmal atrial fibrillation (HCC); Pacemaker from Last 3 Months Surgical History Surgery Date Site/Laterality Comments OTHER SURGICAL HISTORY 1964 : OTHER SURGICAL HISTORY 1969 : OTHER SURGICAL HISTORY 1983 S/P TVH and anterior repair OTHER SURGICAL HISTORY Left arthroscopic, knee OTHER SURGICAL HISTORY Hemorrhoids: [facility] ATRIAL CARDIAC PACEMAKER INSERTION 08/27/2023 - 08/26/2024 Medical History Medical History Date Comments Hx Other Medical 1964 ; Outc ome: 8 lb(s) 14 oz Female Hx Other Medical 1969 ; Outc ome: 7 lb(s) 10 oz Male Disorder of thyroid Thyroid dise ase Hyperlipidemia Hyperlipidemia Hypertension Hypertension Diabetes mellitus Diabetes melli tus Hx Other Medical 2006 lichen sclerosu s [...] on file Legal 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 Gender Identity Female 02/11/2021 9:48 AM CDT Sexual Orientation Not on file Obstetrics History Para Term AB IAB SAB Ectopic Multiple Livin g Live Births 2 2 0 0 0 0 0 0 0 0 0 Date Outcome GA Total Labor Labor/2nd/3rd Weight Sex Type Anes PTL Marichuy A1 A5 Name Clin 07/1965 Para F Vag-Sp ont 05/1970 Para M Vag-Sp ont Last Filed Vital Signs Vital Sign Reading Time Taken Comments Blood Pressure 132/72 05/20/2025 10:58 AM CDT Pulse 93 01/09/2025 10:24 AM CDT Temperature 36 C (96.8 F) 05/01/2024 7:56 AM CDT Respiratory Rate 18 05/01/2024 7:56 AM CDT Oxygen Saturation 94% 05/01/2024 7:56 AM CDT Inhaled Oxygen Concentration - - Weight 97.1 kg (214 lb) 05/20/2025 10:58 AM CDT Height 162.6 cm (5' 4) 05/20/2025 10:58 AM CDT Body Mass Index 36.73 05/20/2025 10:58 AM CDT Plan of Treatment Health Maintenance Due Date Last Done Comments Albumin Creatinine Ratio, Urine 1945 Hemoglobin A1C 1945 Hepatitis C Screening 1945 Dilated Eye Exam 1946 Foot Exam 1945 DTaP/Tdap/Td Vaccine (1 - Tdap) 1957 Hepatitis B Screening 1964 Influenza Vaccine (#1) 2025 , 07/25/2022, 05/17/2020, Additional history exists eGFR 04/29/2025 04/29/2024, 062 02/2024, 04/25/2022, Additional history exists Fall Risk Assessment 05/01/2025 05/01/2024 Lipid Panel 01/22/2026 01/22/2025, 12/27, 12/06/2021, Additional history exists Depression Screening 05/20/2026 05/20/2025, 05/16/2023, 02/17/2021 Well Visit 65+ 05/20/2026 05/20/2025 Osteoporosis Screening-Bone Density Scan 02/17/2027 02/17/2025, 02/17/2025, 03/18/2019, Additional history exists Zoster Vaccine Completed 05/26/2019, 12/27, 05/31/2015 Pneumococcal vaccine 65+ Completed 020, 02/25/2018, 11/25/2005 Breast Cancer Screening-Mammogram Discontinued 01/15/2025, 01/15/2025, 12/10/2023, Additional history exists Medical Devices Implanted Type Area Lead Care Manager Device Identifier Shelf Expiration Date Model / Serial / Lot [employer] Endocardial Pacing Lead Promri Solia Jt [id number] - [id number] - [id number] Implanted:Qty: 1 on 04/30/2024 by Rashi Shanks MD at [facility] Lead [employer] 11/24/2025 [id number] / [id number] / [employer] Endocardial Pacing Lead Promri Solia T [id number] - [id number] - [id number] Implanted:Qty: 1 on 04/30/2024 by Rashi Shanks MD at [facility] Lead [employer] 11/24/2024 [id number] / [id number] / Medtronic Inc Tyrx Absorbable Antibacterial Envelope-Large 3.3x2.9in [id number] - [id number] Implanted:Qty: 1 on 04/30/2024 by Rashi Shanks MD at [facility] Mesh [employer] Inc 01/24/2025 CMRM [id number] / / [id number] Biot[employer] Inc Pacemaker Implantable Amvia Edge Dual Chamb Rate-Responsive [id number] - [id number] - [id number] Implanted:Qty: 1 on 04/30/2024 by Rashi Shanks MD at [facility] Pacemaker [employer] 09/26/2025 [id number] / [id number] / Procedures Procedure Name Priority Date/Time Associated Diagnosis Comments URINE CULTURE Routine 05/20/2025 11:37 AM CDT Urge incontinence of urine Abnormal finding on urinalysis POCT URINALYSIS DIPSTICK Routine 05/20/2025 11:31 AM CDT Urge incontinence of urine DEVICE CHECK - REMOTE Routine 04/28/2025 1:45 [...] Recently Relevant to Health Maintenance Results * Urine culture Urine, clean voided (05/20/2025 11:37 AM CDT) Urine culture Final report [facility] - 01 Result 1 Comment [facility] - 01 Comment: Mixed urogenital tamiko Less than 10,000 colonies/mL Urine, clean voided 05/20/2025 11:37 AM CDT 05/20/2025 Narrative [facility] - 05/22/2025 8:12 AM CDT Performed at: 01 - [facility] [id number] Tar Leveler: Julius King PhD, Phone: [phone] Manuel Tyson NP LAB MICROBIOLOGY - GENE RAL ORDERABLES Final Result [facility] - 01 * (ABNORMAL) POCT urinalysis dipstick (05/20/2025 11:31 AM CDT) Color, Urine, POC Dark Yellow Clarity, ur, POC Clear Clear Glucose, ur, POC Negative Negative Bilirubin, ur, POC Small(A) Negative Ketones, ur, POC Trace(A) Negative Specific [place], POC 1.025 1.003 - 1.030 Blood, ur, POC Negative Negative pH, ur, POC 5.5 5.0 - 8.0 Protein, ur, POC Trace(A) Negative Urobilinogen, urine, POC 0.2 0.2 - 1.0 mg/dL Nitrite, ur, POC Negative Negative Leukocytes, ur, POC Trace(A) Negative Lot Number [id number] Urine 05/20/2025 11:3 1 AM CDT Manuel Tyson TRAFFIC RECORDER POINT OF CARE TEST YOSIEloy SHIMA Final Result * DEVICE CHECK - REMOTE (04/28/2025 1:45 PM CDT) Anatomical Region Laterality Modality Other Narrative 05/01/2025 12:57 PM CDT Images from the original result were not included. 04/29/2025 [employer] Broker Sales quarterly remote device check NOTE The following shows snippets from the complete quarterly report. The complete report in its entirety is attached to this Result Text in Civil Celebrant Last in-office check: December 2024 Next in-office appointment: June 2025 Battery longevity = OK/95% AT/AF burden 0.0% Ap: 63% RVp: 2% Device Nurse Review and Recommendations below Reviewed By Tiffany Coulter RN BSN at 12:43 PM Review and Recommendations below (please forward an in-basket message to your MA if check requires attention) Portia Mcginnis MD [facility] CARDIAC SERVICES PROCED [...] 9:32 AM CDT 04/29/2024 9:45 AM CDT Rashi Shanks MD LAB BLOOD ORDERABLES Final Re sult [facility] Department [place] [employer] [place] [address] * Screening Mammogram Bilateral W Cullen (12/10/2023 4:23 PM CDT) Anatomical Region Laterality Modality Breast Bilateral Mammography Historical Provider IMG MAMMO PROCEDURES Staci l Result * Dexa Axial Skeleton Bone Density 1 or 2 Site (03/18/2019) Anatomical Region Laterality Modality Body N/A Radiographic Debra ging Stacy Zapata NP IMG DXA PROCEDURES Final Result from Last 3 Months or Most Recently Relevant to Health Maintenance Insurance [facility] MEDICARE ADVANTAGE [facility] MEDICARE ADVANTAGE Advance Directives For more information, please contact: [phone] * Full Code (Latest Code Status on File) Date Activated Date Inactivated Comments 03/07/2022 9:34 AM 03/07/2022 11:14 PM Care Teams Brand Specialist Relationship Specialty Start Date End Date Ashwini Herrera DO PCP - General Family Medicine 04/17/24
--- NOTE | 2025-06-02 07:21 | WPDHPUPDATE1 ---
History and Physical Update Update Date/Time: 06/02/25 07:21 History and Physical has been reviewed, including an updated exam of the patient. There are NO changes in the patient's condition. Risks, benefits, and alternatives have been discussed and questions answered. Patient agrees to proceed with procedure.
[2025-06-02] MEDS: ACETAMINOPHEN 500 MG TABLET 1000 MG PO (09:00)
[2025-06-02] MEDS: LACTATED RINGERS 1,000 ML 30 ML IV CONT ×2 (09:00→12:26)
[2025-06-02] MEDS: TRANEXAMIC ACID 1,000MG/ISO100 1,000 MG/100 ML BAG 200 MG IVPB (09:30)
--- NOTE | 2025-06-02 09:39 | WPDANESEPPF ---
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 Patient Data Age: 79 Gender: F Height: 1.63 m Weight: 97.1 kg Last Vital Signs Temp 36.8 C 05/11/25 09:59 Pulse 60 05/11/25 09:59 Resp 18 05/11/25 09:59 BP 159/80 H 05/11/25 09:59 Pulse Ox 97 05/11/25 09:59 O2 Del Method Room Air 05/11/25 09:59 Allergies Allergy/AdvReac Type Severity Reaction Status Date / Time No Known Allergies Allergy Verified 05/25/25 08:01 Home Medications ?Medication ?Instructions ?Recorded ?Confirmed ?Type aspirin 81 mg tablet,delayed 81 mg PO HS 04/02/20 05/25/25 History release metformin 500 mg tablet 500 mg PO BID 04/02/20 05/25/25 History atorvastatin 20 mg tablet 20 mg PO DAILY 04/05/20 05/25/25 History losartan 50 mg tablet 50 mg PO DAILY 04/05/20 05/25/25 History rivaroxaban 20 mg tablet (Xarelto) 20 mg PO DAILY 04/05/20 05/25/25 History levothyroxine 75 mcg tablet 75 mcg PO DAILY 12/20/22 05/25/25 History (Levoxyl) magnesium hydroxide 1,200 mg 1 mg PO DAILY 12/20/22 05/25/25 History chewable tablet (Dulcolax (magnesium hydroxide)) glipizide 5 mg tablet 5 mg PO DAILY 05/23/23 05/25/25 History metoprolol succinate 50 mg 50 mg PO DAILY 05/23/23 05/25/25 History tablet,extended release 24 hr omeprazole 40 mg capsule,delayed 40 mg PO DAILY 05/23/23 05/25/25 History release gabapentin 300 mg capsule 300 mg PO DAILY 03/20/25 05/25/25 History acetaminophen 500 mg tablet 1,000 mg PO PRN PRN pain 05/11/25 05/25/25 History (Acetaminophen Extra Strength) calcium carbonate-vitamin D3 600 2 tablet PO DAILY 05/11/25 05/25/25 History mg-125 unit tablet ferrous sulfate 325 mg (65 mg 325 mg PO 3XW 05/11/25 05/25/25 History iron) tablet (Giselle-Time) magnesium 100 mg capsule 400 mg PO BID 05/11/25 05/25/25 History multivitamin (Daily Value tablet) 1 tablet PO DAILY 05/11/25 05/25/25 History semaglutide 1 mg/dose (4 mg/3 mL) 1 mg subcut WEEKLY 05/11/25 05/25/25 History subcutaneous pen injector (Ozempic) Laboratory Tests 06/02/25 06/02/25 08:48 09:06 POC Capillary Glucose 142 H mg/dl (65-105) Blood Type Pending Antibody Screen Pending Patient hx anesthesia problems: none Family hx anesthesia problems: none Results Review: All pre-operative results and documents have been reviewed as part of the pre-operative evaluation. [facility] Past Medical History Medical History Hypertension (~11/29/15) Diabetes (~11/29/15) Surgical History Surgical History History of hysterectomy H/O arthroscopy of knee Family History Family History Mother Family history of malignant neoplasm Family history of diabetes mellitus in first degree relative Family history of heart disease in male family member before age 55 Father Family history of diabetes mellitus in first degree relative Social History Social History Smoking status: Never smoker Additional smoking assessment comments: DENIES ANY FORM OF TOBACCO USE Alcohol intake: current Alcohol use details: ONE DRINK EVERY TWO WKS Do You Feel Safe in your Home?: Yes Lack of Transportation: No Lack of Food: Never True Current Housing: I Have Housing Concerned About Future Housing: No Difficulty Paying Gas/Electric Bills: No Difficulty Paying for Meds: No Currently Unemployed: No Education: High School Diploma/GED Difficulty w/ Childcare or Family Care: No Living arrangements: with family Spiritual care concerns: No Anes - Eval Final PreProcedure Day of Procedure 06/02/25 09:39 Patient weight: obese Heart: regular rate and rhythm Lungs: decreased breath sounds Airway: Mallampati scale class III Neurological: alert and oriented Last oral intake: >/= 8 hours ASA classification: III Emergent: no Anesthetic plan: proceed Anesthesia type and monitoring: general LMA and standard monitoring Results Review: All pre-operative results and documents have been reviewed as part of the pre-operative evaluation. Informed Consent: The patient's anesthetic plan and its attendant risks and benefits were discussed with the patient/family/POA. Questions were solicited and answers provided to the satisfaction of the patient/family/POA.
[2025-06-02] MEDS: ceFAZolin 2 GM in SODIUM CHLORIDE 0.9% IV 50 ML 100 ML IVPB ×2 (10:26→18:10)
[2025-06-02] MEDS: SODIUM CHLORIDE 0.9% IV 37.7 ML, MORPHINE SULFATE INJ (*CRX) 2 MG, ROPivacaine HCL 1% 2... INFILTRATE (10:47)
[2025-06-02] MEDS: GENTAMICIN BONE CEMENT REFOBACIN 1 EACH TOPICAL (11:36)
[2025-06-02] MEDS: TRANEXAMIC ACID 1,000 MG/10 ML AMPUL 1000 MG IV PUSH (12:06)
[2025-06-02] MEDS: fentaNYL CITRATE INJ (*CRX) 100 MCG/2 ML VIAL 25 MCG IV PUSH ×4 (12:38→13:08)
--- NOTE | 2025-06-02 13:06 | SUR.PHASEI ---
1305 - dr. valles aware of accucheck of 212. no orders received
--- NOTE | 2025-06-02 13:43 | ADMGEN ---
This patient, Emily Wasserman, was admitted to [facility] Surg Room 314-01. Patient/family oriented to hospital policies and general routines including ID bracelet, bed and alarms, visiting hours, pain management, procedures, bathroom and other care routines, personal items, smoking policy, room service/diet, and visiting hours. Information on how to activate the Rapid Response Team has been discussed. Patient/Family are encouraged to report perceived risks to care and to ask questions if they do not understand what they are told or what they should do.
[2025-06-02] MEDS: oxyCODONE/ACETAMINOPHEN (*CRX) 10-325 MG TABLET 1 TAB PO (14:04)
--- NOTE | 2025-06-02 15:39 | W.PM.PROC2 ---
Procedure Note - Detailed Date of Procedure 06/02/25 Pre-op Diagnosis Left knee degenerative arthritis. Post-op Diagnosis Same Procedure Performed Custom total knee arthroplasty, left. Surgeon Dom Escobar MD Automated Cutting Machine Operator Kat Hendrickson PA-C Anesthesia General Description of Procedure Preoperative antibiotics were given. The limb was prepped and draped in the usual sterile fashion with a well-padded tourniquet high on the thigh. The limb was exsanguinated and the tourniquet inflated to 300 mmHg during exposure and cementation. Initially a venous tourniquet was encountered. A longitudinal incision was created just medial to the patella. A trivector approach to the knee was performed. Arthrotomy was taken down through the joint capsule. No significant releases were initially taken. The femur was exposed and the F1 jig was applied. The coring tool was used to remove the cartilage for the F2 jig to sit flush with the bone. The jig was pinned and the distal cut carefully taken. Caliper measurements confirmed appropriate bony resections according to the preoperative templated plan. The F4 cutting jig for the femur was applied, at the standard rotation. The AP and anterior chamfer cuts were taken. The F5 jig was applied and the posterior chamfer cuts were taken. The tibia was prepared using the T1 jig, after removing cartilage for the jig contact points. Proper alignment was checked with the alignment shaheen. The tibia was cut using the T1u guide. Gap balancing was performed. Gap measurements were taken and the knee was trialed. Excellent alignment and soft tissue balancing was confirmed. The posterior cruciate ligament was recessed along the proximal tibia. The patella tracked well. A lateral facetectomy was performed. Meniscal remnants were removed. The trial components were assembled. Excellent range of motion and proper soft tissue balancing were confirmed throughout the full range of motion. Patellar tracking was excellent. The knee was copiously irrigated periodically throughout the procedure. The real implants were cemented into position. Excess cement was carefully removed. The wound was closed in layers with interrupted #1 Vicryl suture, 2-0 strata fix suture, 0 strata fix suture, 2-0 strata fix suture. Steri-Strips placed on the skin with the knee flexed. Sterile bulky dressing applied. The patient was brought to the recovery room in stable condition. There were no complications. Implants Conformis Custom total knee arthroplasty. Cemented. Cruciate retaining. 6A insert. Estimated Blood Loss 200 Drains No Complications No immediate complications Condition Stable Disposition PACU [facility] Billing Surgery - Charge Forward: Surgery Billing
[2025-06-02] MEDS: SENNA/DOCUSATE SODIUM TABLET 2 TAB PO (16:42)
[2025-06-02] MEDS: ACETAMINOPHEN 325 MG TABLET 650 MG PO ×2 (16:43→21:17)
[2025-06-02] MEDS: MAGNESIUM OXIDE 400 MG TABLET PO (21:17)
[2025-06-02] MEDS: FAMOTIDINE 20 MG TABLET PO (21:17)
[2025-06-02] MEDS: ASPIRIN 81 MG ENTERIC TABLET PO (21:18)
[2025-06-02] MEDS: oxyCODONE/ACETAMINOPHEN (*CRX) 5-325 MG TABLET 1 TABLET PO (21:21)
[2025-06-03] MEDS: ACETAMINOPHEN 325 MG TABLET 650 MG PO ×2 (02:38→09:06)
[2025-06-03] MEDS: oxyCODONE/ACETAMINOPHEN (*CRX) 5-325 MG TABLET 1 TABLET PO ×2 (02:38→09:16)
[2025-06-03] MEDS: ceFAZolin 2 GM in SODIUM CHLORIDE 0.9% IV 50 ML 100 ML IVPB ×2 (02:39→09:07)
[2025-06-03 03:16] VITALS: BP 116/48; PULSE 69; RESP 18; TEMP 36.6; O2SAT 95
[2025-06-03 06:15] LABS: Hematocrit 32.8 % (37.0-47.0); Hemoglobin 10.5 g/dL (12.0-15.0); Immature Granulocyte Percent A 0.4 % (0-0.5); Lymphocytes Absolute Auto 1.21 K/mm3 (0.9-3.2); Mean Corpuscular HGB Conc 32.0 g/dl (32-36); Mean Corpuscular Hemoglobin 30.3 pg (26-34); Mean Corpuscular Volume 94.8 fl (80-100); Nucleated Red Blood Cells Absolute Auto 0.000 K/mm3 (0.0-0.012); Nucleated Red Blood Cells Perc 0.0 % (0.0-0.2); Platelet Count Result 188 k/mm3 (150-375); Red Blood Count 3.46 M/mm3 (4.2-5.4); White Blood Count 10.7 K/mm3 (4.5-10.0)
[2025-06-03 06:36] LABS: Anion Gap 9 mmol/L (4-12); Blood Urea Nitrogen 24 mg/dL (7-17); Calcium 8.2 mg/dL (8.4-10.2); Carbon Dioxide 23 mmol/L (22-30); Chloride 104 mmol/L (98-107); Estimated CRCL calculation 53 ml/min; Estimated Glomerular Filt Rate > 60; Glucose 168 mg/dL (65-110); Potassium 4.9 mmol/L (3.4-5.0); Sodium 136 mmol/L (137-145)
[2025-06-03] MEDS: LEVOTHYROXINE SODIUM 75 MCG TABLET PO (06:40)
[2025-06-03] MEDS: oxyCODONE/ACETAMINOPHEN (*CRX) 10-325 MG TABLET 1 TAB PO (06:41)
[2025-06-03 07:16] VITALS: BP 114/69; PULSE 69; RESP 18; TEMP 35.9; O2SAT 96
[2025-06-03] MEDS: MAGNESIUM OXIDE 400 MG TABLET PO (09:05)
[2025-06-03] MEDS: FAMOTIDINE 20 MG TABLET PO (09:06)
[2025-06-03] MEDS: LOSARTAN POTASSIUM 50 MG TABLET PO (09:06)
[2025-06-03] MEDS: ATORVASTATIN 20 MG TABLET PO (09:06)
[2025-06-03] MEDS: GABAPENTIN 300 MG CAPSULE PO (09:06)
[2025-06-03] MEDS: SENNA/DOCUSATE SODIUM TABLET 2 TAB PO (09:06)
[2025-06-03] MEDS: CYCLOBENZAPRINE HCL 10 MG TABLET PO (09:16)
== END 2025-06-03 11:40 | disposition home or self-care (01) ==
LOC: ANHSURGERY 10:28 → ANH3MEDSUR 13:32
PROVIDERS: Physician Assistant Surgical; PCP Student in an Organized Health Care Education/Training Program; Visit Provider Orthopaedic Surgery
PROC: (CPT 27447; principal; 2025-06-02 10:30)
DX: M17.12 Unilateral primary osteoarthritis, left knee (principal); I10 Essential (primary) hypertension; E11.9 Type 2 diabetes mellitus without complications; R94.31 Abnormal electrocardiogram [ECG] [EKG]; E66.9 Obesity, unspecified; Z68.36 Body mass index [BMI] 36.0-36.9, adult; Z79.82 Long term (current) use of aspirin; Z79.84 Long term (current) use of oral hypoglycemic drugs; Z79.01 Long term (current) use of anticoagulants; Z79.85 Long-term (current) use of injectable non-insulin antidiabetic drugs; Z98.890 Other specified postprocedural states; Z80.9 Family history of malignant neoplasm, unspecified; Z82.49 Family history of ischemic heart disease and other diseases of the circulatory system
CPT/HCPCS: 27447; 36415; 73560; 80048; 82948; 85025; 86850; 86900; 86901; 97110; 97116; 97161; 97165; 97530; J0690; A9270; C1713; C1776; J0166; J1100; J1885; J2270; J2405; J2704; J2795; J3010; J3290; J7120; J7512